=== PATIENT | female | born 1960 | race African-American/Black ===

== ENCOUNTER 2017-03-25 00:26 | Inpatient (IN) | payer OTHER, MEDICARE ==
[2017-03-25] VITALS (16 sets, daily range): BP systolic 126–156; BP diastolic 71–100; PULSE 69–101; RESP 18–22; TEMP 97.5–98.7; O2SAT 97–100
[~2017-03-25] VITALS: Ht 162.6 cm; Wt 110.3 kg
[~2017-03-25 00:26] MED LIST: AMLO5TAB2 PO; CLON0.3T PO; CYCL10TA PO; HYDR-3799 PO; LEVO-86 PO; LEVO137T2 PO; LOSA100T PO; METO50TA PO; NORT75CA PO; POTA-163 PO; TOPA50TA7 PO
[2017-03-25] MEDS ORDERED: ONDANSETRON HCL 4 MG/2 ML VIAL IV PUSH PRN (01:00)
[2017-03-25] MEDS ORDERED: ACETAMINOPHEN 500 MG CPLT PO PRN (01:00)
[2017-03-25] MEDS ORDERED: MORPHINE SULFATE 4 MG/ML INJ IV ONE (04:00)
[2017-03-25] MEDS ORDERED: MORPHINE SULFATE 2 MG/ML INJ IV ONE (05:00)
--- NOTE | 2017-03-25 10:31 | HHI.HP ---
HPI Primary Care Physician Non-Staff Chief Complaint Chest pain History of Present Illness This is a 56-year-old female history of hypertension that presents to ED and [facility] and subsequently transferred to the chest pain center to further evaluate chest discomfort. She states she has had 4 days of constant chest discomfort. Describes it as sharp. Worsened with certain movements. Denies associated shortness of breath, nausea, or diaphoresis. Found last night that the discomfort was radiating down the left arm. Denies history of CAD. States she's had chemical stress test in the past most recently being about a year and a half ago at [facility] and that was okay. She also has double to nonproductive cough for last 2 days which also seems to worsen the discomfort that she has had constantly for 4 days. Review of Systems General: Patient denies fevers, chills recent, and recent travel HEENT: Patient denies headache, sore throat, difficulty swallowing. Cardiovascular: Has the chest discomfort as mentioned above. Denies sensation of heart beating rapidly or irregularly. No syncope. Denies diaphoresis. Respiratory: Denies shortness of breath or inspirational chest discomfort. Denies coughing wheezing or hemoptysis. GI: Patient denies nausea, vomiting, diarrhea, abdominal pain, bloody stools. Musculoskeletal: Patient denies joint pain or edema. Denies calf pain or edema. Neurovascular: Patient denies numbness, tingling, weakness in extremities. Denies headache. Endocrine: Denies polyuria and polydipsia. Hematologic: Denies easy bruising. Skin: Denies rash or itching. Past Family Social History Allergies: Coded Allergies: metronidazole (Verified Allergy, Severe, 03/24/17) TONGUE SWELLING penicillin G (Verified Allergy, Severe, 03/24/17) RASH sulfamethoxazole (Verified Allergy, Severe, 03/24/17) HIVES trimethoprim (Verified Allergy, Severe, 03/24/17) HIVES Past Medical History Hypertension hypothyroidism history of temporal arteritis. Denies hyperlipidemia and diabetes. Denies known CAD. Past Surgical History Cholecystectomy, hysterectomy, and thyroidectomy. Reported Medications Reported Meds & Active Scripts Active Reported Flexeril (Cyclobenzaprine HCl) 10 Mg Tab 10 Mg PO TID Potassium Chloride ER (Potassium Chloride) 20 Meq Tab 20 Meq PO BID Synthroid (Levothyroxine Sodium) 137 Mcg Tab 137 Mcg PO DAILY Nortriptyline (Nortriptyline HCl) 75 Mg Cap 75 Mg PO HS Topamax (Topiramate) 50 Mg Tab 50 Mg PO BID Clonidine (Clonidine HCl) 0.3 Mg Tab 0.3 Mg PO TID Hydralazine HCl 25 Mg Tablet 100 Mg PO TID Amlodipine (Amlodipine Besylate) 5 Mg Tab 5 Mg PO BID Metoprolol Tartrate 50 Mg Tab 50 Mg PO TID Losartan (Losartan Potassium) 100 Mg Tab 100 Mg PO DAILY Active Ordered Medications Current Medications Medications (Trade) Dose Ordered Sig/Lorraine Route Start Time Stop Time Status Last Admin (Tylenol) 500 mg Q4H PRN PO 03/25/17 01:00 03/25/17 01:24 (Zofran Inj) 4 mg Q6H PRN IV PUSH 03/25/17 01:00 03/25/17 01:24 (Flexeril) 10 mg TID PO 03/25/17 13:00 UNV (Apresoline) 100 mg TID PO 03/25/17 13:00 UNV (Cozaar) 100 mg DAILY PO 03/25/17 09:45 UNV (Pamelor) 75 mg HS PO 03/25/17 21:00 UNV (KCl) 20 meq BID PO 03/25/17 09:45 UNV Non-Formulary Medication 137 mcg DAILY PO 03/25/17 09:45 UNV (Norvasc) 5 mg BID PO 03/25/17 10:15 UNV (Catapres) 0.3 mg TID PO 03/25/17 13:00 UNV (Lopressor) 50 mg TID PO 03/25/17 13:00 UNV (Decadron Inj) 8 mg NOW ONCE IV PUSH 03/25/17 10:15 03/25/17 10:16 UNV Family History Multiple family members with CAD. Social History Lifetime nonsmoker. Denies alcohol or illicit drugs. Physical Exam Vital Signs Vital Signs Date Time Temp Pulse Resp B/P (MAP) Pulse Ox O2 Delivery O2 Flow Rate FiO2 03/25/17 08:56 98.1 81 18 135/86 (102) 100 03/25/17 04:24 98.7 72 18 129/71 (90) 100 03/25/17 03:20 94 03/25/17 03:13 78 03/25/17 01:11 98.4 76 18 140/76 (97) 99 Physical Exam GENERAL: This is a well-nourished, well-developed patient, in no apparent distress. Patient speaks in clear complete sentences. Patient is pleasant. HEENT: Head is atraumatic and normocephalic. Neck is supple without lymphadenopathy and trachea is midline. No JVD or carotid bruits. CARDIOVASCULAR: Regular rate and rhythm without murmurs, gallops, or rubs. RESPIRATORY: Clear to auscultation. Breath sounds equal bilaterally. No wheezes , rales, or rhonchi. Chest wall is very tender on left side. Also tenderness on palpating left back. No use of accessory muscles. GASTROINTESTINAL: Abdomen is nontender, nondistended. Abdomen soft. No obvious pulsatile mass or bruit. No CVA tenderness. Strong femoral pulses bilaterally. Normal bowel sounds in all quadrants. MUSCULOSKELETAL: There is tenderness on palpating left thoracolumbar region. No spinous process point tenderness. Patient is moving upper and lower extremities freely. No calf tenderness or edema, no Homans sign. Strong pulses in upper and lower extremities. NEUROLOGICAL: Patient is alert and oriented. Cranial nerves 2-12 are grossly intact. No focal deficits and speech is clear. SKIN: No rash and turgor is normal. Imaging Chest x-ray reveals nothing acute. CTA read by radiologist as no PE. Course EKGs are sinus rhythm with inferior anterior ST changes are nonspecific. Caprini VTE Risk Assessment Caprini VTE Risk Assessment: No/Low Risk (score <= 1) Caprini Risk Assessment Model Point Value = 1 Point Value = 2 Point Value = 3 Point Value = 5 Age 41-60 Minor surgery BMI > 25 kg/m2 Swollen legs Varicose veins or History of unexplained or recurrent spontaneous Oral contraceptives or hormone replacement Sepsis (< 1 month) Serious lung disease, including pneumonia (< 1 month) Abnormal pulmonary function Acute myocardial infarction Congestive heart failure (< 1 month) History of inflammatory bowel disease Medical patient at bed rest Age 61-74 Arthroscopic surgery Major open surgery (> 45 min) Laparoscopic surgery (> 45 min) Malignancy Confined to bed (> 72 hours) Immobilizing plaster cast Central venous access Age >= 75 History of VTE Family history of VTE Factor V Leiden Prothrombin [id number] Lupus anticoagulant Anticardiolipin antibodies Elevated serum homocysteine Heparin-induced thrombocytopenia Other congenital or acquired thrombophilia Stroke (< 1 month) Elective arthroplasty Hip, pelvis, or leg fracture Acute spinal cord injury (< 1 month) Prophylaxis Regimen Total Risk Factor Score Risk Level Prophylaxis Regimen 0-1 Low Early ambulation 2 Moderate Order ONE of the following: *Sequential Compression Device (SCD) *Heparin 5000 units SQ BID 3-4 Higher Order ONE of the following medications: *Heparin 5000 units SQ TID *Enoxaparin/Lovenox 40 mg SQ daily (WT < 150 kg, CrCl > 30 mL/min) *Enoxaparin/Lovenox 30 mg SQ daily (WT < 150 kg, CrCl > 10-29 mL/min) *Enoxaparin/Lovenox 30 mg SQ BID (WT < 150 kg, CrCl > 30 mL/min) AND/OR *Sequential Compression Device (SCD) 5 or more Highest Order ONE of the following medications: *Heparin 5000 units SQ TID (Preferred with Epidurals) *Enoxaparin/Lovenox 40 mg SQ daily (WT < 150 kg, CrCl > 30 mL/min) *Enoxaparin/Lovenox 30 mg SQ daily (WT < 150 kg, CrCl > 10-29 mL/min) *Enoxaparin/Lovenox 30 mg SQ BID (WT < 150 kg, CrCl > 30 mL/min) AND *Sequential Compression Device (SCD) Assessment and Plan Assessment and Plan * Atypical chest pain: Patient had serial cardiac enzymes and EKGs for ruling out purposes. Her discomfort appears to be musculoskeletal in nature. She was seen by Dr. Bradley of cardiology and the chest pain center. We will give her Decadron IV 1 and Medrol Dosepak. She will have a Lexiscan in the discharge of her stress test was nonischemic with instructions to follow-up with PCP. Return to ED for interval issues. * Hypertension: Resume medications. * Hypothyroidism: Continue current medication. Patient is stable this time. She is agreeable to this plan. Delon Borges Mar 25, 2017 10:31
[2017-03-25] MEDS: LEVOTHYROXINE SODIUM 112 MCG TAB PO SCH (10:52)
[2017-03-25] MEDS: LEVOTHYROXINE SODIUM 25 MCG TAB PO SCH (10:52)
[2017-03-25] MEDS: POTASSIUM CHLORIDE 20 MEQ CONTROLLED RELEASE TAB PO SCH ×2 (10:53→21:30)
[2017-03-25] MEDS: amLODIPine BESYLATE 5 MG TAB PO SCH ×2 (10:53→21:30)
[2017-03-25] MEDS: LOSARTAN 50 MG TAB PO SCH (10:53)
[2017-03-25] MEDS ORDERED: DEXAMETHASONE SOD PHOS 4 MG/ML VIAL IV PUSH ONE (11:00)
[2017-03-25] MEDS ORDERED: REGADENOSON INJ 0.4 MG/5 ML SYR ONE (12:22)
--- NOTE | 2017-03-25 13:18 | TR ---
Date Performed: 03/25/2017 Time Performed: 12:41:57 DOCTOR: Trey Bradley DRUG LIST: CLINICAL HISTORY: ANGINA REASON FOR TEST: REASON FOR ENDING: OBSERVATION: CONCLUSION: Lexiscan stress test was performed under standard four minute protocol. Radionuclid e was injected one minute prior to ending the test. No electrocardiographic abormalities were present to suggest ischemia. Nuclear imaging and interpretation are pending. COMMENTS:
[2017-03-25] MEDS: CYCLOBENZAPRINE HCL 10 MG TAB PO SCH ×2 (14:32→17:59)
[2017-03-25] MEDS: METOPROLOL TARTRATE 50 MG TAB PO SCH ×2 (14:32→17:59)
[2017-03-25] MEDS: hydrALAZINE HCL 25 MG TAB PO SCH ×2 (14:33→17:59)
[2017-03-25] MEDS: cloNIDine HCL 0.3 MG TAB PO SCH ×2 (14:33→17:59)
--- NOTE | 2017-03-25 14:46 | RADRPT ---
EXAM DATE/TIME: 03/25/2017 12:17 [facility] COMPARISON: No previous studies available for comparison. INDICATIONS : Chest pain and dyspnea. Angina. DOSE: 35 mCi Tc99m Myoview at stress. 11 mCi Tc99m Myoview at rest. 0.4 mg Lexiscan STRESS SYMPTOMS: Shortness of breath, chest pressure. EJECTION FRACTION: 52% MEDICAL HISTORY : Hypertension. Hypothyroidism. SURGICAL HISTORY : Thyroidectomy. Hysterectomy. Cholecystectomy. ENCOUNTER: Initial ACUITY: 1 day PAIN SCALE: 0/10 LOCATION: Left chest TECHNIQUE: The patient underwent pharmacologic stress with infusion of prescribed dose. Continuous ECG tracing was monitored during stress. Gated SPECT imaging was performed after stress and conventional SPECT i maging was performed at rest. The examination was performed on a SPECT/CT scanner, both attenuation and non-corrected datasets were reviewed. FINDINGS: The study is abnormal. Perfusion is better at rest than stress in all projections. There is signifi cant redistribution the anteroseptal wall and inferior wall. Ejection fraction 52% with inferior wall hypokinesis. CONCLUSION: Marked stress-induced ischemia anterior septum and inferior wall. RISK CATEGORY: Intermediate (1-3% Annual Mortality Rate) Faisal Moser MD FACR on March 25, 2017 at 14:43 Board Certified Radiologist. This report was verified electronically.
[2017-03-25] MEDS ORDERED: ACETAMINOPHEN/HYDROcodone 325 MG/5 MG TAB PO PRN (15:00)
[2017-03-25] MEDS: MORPHINE SULFATE 2 MG/ML INJ IV PUSH PRN (15:40)
[2017-03-25] MEDS ORDERED: cloNIDine HCL 0.1 MG TAB PO PRN (15:45)
[2017-03-25] MEDS ORDERED: DIAZEPAM 5 MG TAB PO STA (15:59)
[2017-03-25] MEDS ORDERED: diphenhydrAMINE HCL 25 MG CAP PO STA (16:09)
[2017-03-25] MEDS ORDERED: IOHEXOL 350 MG/ML 50 ML BTL (for Cath Lab) OTHER ONE (16:13)
[2017-03-25] MEDS ORDERED: IOHEXOL 350 MG/ML 100 ML BTL (for Cath Lab) OTHER ONE (16:13)
[2017-03-25] MEDS: SODIUM CHLOR 0.9% 1000 ML INJ 1,000 ML IV SCH ×2 (16:27→22:30)
--- NOTE | 2017-03-25 16:44 | MB ---
cc: GARRICK CISNEROS M.D. DATE OF CONSULTATION: 03/25/2017. REASON FOR CONSULTATION: Evaluation of chest pain and abnormal stress test. HISTORY OF PRESENT ILLNESS: Fara Rondon is a 56-year-old woman with multiple risk factors for coronary artery disease. She has hypertension. She has had this sixteen years. She has never smoked. She is not diabetic. She has a family history in that her mother had several heart attacks and her father of congestive heart failure. She describes chest pain going on for the past four days that is a sharp pain in the left side of her chest going over to the side. She has had some intermittent numbness in her left arm. She has had severe dyspnea on exertion and has been extremely tired. She underwent a nuclear stress test which was markedly abnormal and she is now referred to me for further evaluation. PAST MEDICAL HISTORY: Her past medical history includes: 1. Hypertension. 2. Hypothyroidism secondary to thyroidectomy. 3. Temporal arteritis in 2013. PAST SURGICAL HISTORY: Her past surgical history includes: 1. Two bowel operations for small bowel obstruction. 2. Cholecystectomy. 3. Hysterectomy. 4. Thyroidectomy. 5. Knee replacement. SOCIAL HISTORY: She is from [place], [place]. Nonsmoker and non-drinker. REVIEW OF SYSTEMS: She denies any gastrointestinal problems. Denies any bleeding. Denies any kidney problems. The remaining review of systems also discussed and negative. ALLERGIES: 1. NOT ALLERGIC TO X-RAY DYE OR ASPIRIN. 2. SHE IS ALLERGIC TO METRONIDAZOLE, PENICILLIN, SULFAMETHOXAZOLE AND TRIMETHOPRIM. MEDICATIONS PRIOR TO ADMISSION: 1. Flexeril. 2. Potassium. 3. Synthroid. 4. Nortriptyline. 5. Topamax. 6. Clonidine 0.3 three times a day. 7. Hydralazine 100 three times a day. 8. Amlodipine 5 twice a day. 9. Metoprolol 50 three times a day. 10. Losartan 100 daily. PHYSICAL EXAMINATION: GENERAL: The physical exam reveals an obese pleasant -Stateless female in no acute distress. VITAL SIGNS: Charted. HEAD, EYES, EARS, NOSE, THROAT: Unremarkable. NECK: No jugular venous distention. No bruits. CHEST: Clear to auscultation. CARDIAC: S1-S2 are somewhat distant. Regular rate and rhythm. No murmurs or gallops appreciated. ABDOMEN: Abdomen soft and nontender. No masses or organomegaly. EXTREMITIES: No cyanosis, clubbing or edema. Pulses are intact. EKGS: EKG demonstrates normal sinus rhythm, left ventricular hypertrophy by voltage in lead aVL, anterior S-T-T wave changes which could be from hypertrophy or could be from ischemia. Her nuclear stress test shows marked stress-induced ischemia on the anterior septum and inferior wall. LABORATORY STUDIES: BUN is 23, creatinine 1.20, potassium was 3.1 but she has received potassium replacement. Troponin has been negative. IMPRESSION: Suspected unstable angina and markedly abnormal stress test with significant cardiac risk factors. PLAN: I obtained informed consent for cardiac catheterization and will try to do this radially to reduce the bleeding risk because of her size. Informed consents have been obtained. I explained that she may require stenting for possible bypass versus medication therapy. Informed consent has been obtained and we are planning to proceed later today. Tomorrow is [place] so will try to get her done today before the holiday. MD OMAR Velazquez/SATHYA /3:51 PM /4:20 PM
[2017-03-25] MEDS ORDERED: HEPARIN-NS/PF INJ 1,000 ML ONE (18:23)
[2017-03-25] MEDS ORDERED: NITROGLYCERIN INJ 5 ML ONE (18:29)
[2017-03-25] MEDS ORDERED: HEPARIN SODIUM - IV 10,000 UNITS/10 ML VIAL ONE (18:29)
[2017-03-25] MEDS ORDERED: MIDAZOLAM HCL 2 MG/2 ML VIAL ONE ×3 (18:29→19:12)
[2017-03-25] MEDS ORDERED: VERAPAMIL HCL 5 MG/2 ML VIAL ONE (18:29)
[2017-03-25] MEDS ORDERED: ASPIRIN 81 MG CHEW TAB ONE (20:03)
[2017-03-25] MEDS ORDERED: TICAGRELOR 90 MG TAB PO ONE (20:03)
--- NOTE | 2017-03-25 20:21 | CATHPROC ---
[facility] HIS Report Study Information Study Number Admission Scheduled Start Study Start [id number] Mar 25 2017 12:29AM 03/25/2017 Mar 25 2017 6:01PM [place] [facility] Cardiac Catheterization Admit Source Facility Department Emergency department [facility] - Court Officer Physician and Clinical Staff Initial Jasper Cooley Grain MixerMila Zhou,RN Grain MixerOfelia Lozoya,CORIE Recorder Rema Ortiz,RT(R) Scrub Mila Alcantara,RT(R) Procedures Performed Procedure Location (Site) Vessel Name Coronary Angiograms LCA Left Coronary Coronary Angiograms RCA Right Coronary Drug Eluting Inflatio LAD Mid Left Coronary IVUS LAD Mid Left Coronary L Heart Cath PTCA LAD Mid Left Coronary Wire insertion Radial (right) Radial Art. Equipment Time Auto Camp Attendant Description Size Mfg Part Number Used/Scraped TRANSDUCER, TRUWAVE [id number] 18:02 SOTELO CORRAL * Used W/STOCKCOCK *[id number] *[id number] *[id number] 18:02 MALLINCKRODT SYRINGE, ANGIOMAT 150ML 150ML *[id number] Used 2SUB [id number] 18:02 [employer] PACK, CCL CUSTOM * Used *[id number] 18:02 [employer] SUPPORT, ARTERIAL ADULT 94834 *[id number] Used [id number] 18:02 [employer] PACER PEN, SKIN DUAL W/ RULER * Used *[id number] BALLOON, 3.5 X 15MM NC [id number] 19:57 MEDTRONIC 15MM Used EUPHORA *[id number] 19:50 [employer] STENT, 3.0 22MM ANDRIY 3.0 22MM Used *[id number] 19:21 [employer]/AVE EBU 3.5 Z2 GUIDE CATHETER FR 6 Used *[id number] 19:54 [employer] MEDICAL 30 YULI INDEFLATOR Used *[id number] BAND, RADIAL COMPRESSION TR [id number] 20:08 [employer] MEDICAL 24CM Used SHORT 24 *[id number] 20:19 [employer] PACK, ANGIOPLASTY * [id number] Used [id number] 18:02 [employer] WIRE, EXCHANGE 260CM 3MMJ 260CM Used *[id number] PROBE COVER, STERILE [id number] 18:46 [employer] MEDICAL * Used ULTRASOUND W/ GEL *[id number] 18:02 NAMIC MANIFOLD, 4 PORT * Used *[id number] 18:02 NYCOMED OMNIPAQUE, 350 MG, 100ML 100ML [id number] Used [id number] 18:02 [employer] MEDICAL BLANKET,WARM AIR CCL * Used *[id number] 18:02 IGLESIAS [employer] JELCO NEEDLE 4056 *[id number] Used 20:18 [employer] JELCO NEEDLE 4056 *[id number] Used CATHETER, FR5 OPTITORQUE [id number] 18:44 TERUMO MEDICAL FR 5 Used RADIAL TIG 4.0 *[id number] SHEATH, FR6 TRANSRADIAL [id number] 18:02 [employer] MEDICAL FR 6 Used SLENDER 10CM *[id number] CATHETER, [place] [place] [id number] 19:43 [employer] Used IMAGING *[id number] 19:23 [employer]OL[employer] PRIME WIRE, VERRATA 185CM 185CM 36744 *[id number] Used Equipment Model, Serial, Lot Number and Expiration Data Description Model Number Serial Number Lot Number Expiration Date PRIME WIRE, VERRATA 185CM [id number] 02-01-2020 STENT, 3.0 22MM ANDRIY [id number] 08-27-2018 History: Current Medications Medication Dosage/Unit Route Frequency Last Date/Time Taken LOPRESSOR COZAAR HYDRALAZINE NORVASC ASA History: Allergies Allergy Reaction sulfamethoxazole trimethoprim metronidazole penicillin G History: Risk Factors Family History of Hypertension Dyslipidemia Previous OR Previous Heart Failure Premature CAD Yes No Yes No No Prior Valve Prior PCI Prior CABG Surgery No No No Cerebrovascular Peripheral Artery Chronic Lung On Dialysis Diabetes Disease Disease Disease No No No No No History: Symptoms/Diagnosis Selection Items Chest pain History: Stress Tests Stress or Imaging Studies Performed Yes Standard Exercise Stress Test No Stress Echo No Stress Test SPECT Stress Test SPECT Result Stress Test SPECT Ischemia Risk/Extent Yes Positive High Stress Test CMR No Cardiac CTA Coronary Calcium Score No No History: Other Current Smoker No Labs Hgb (g/dl) Hct (%) WBC (l/cumm) Platelets (thousands) 11.60-17.00 35.00-51.00 4.00-11.00 150.00-450.00 11.8 35.6 10.2 348 Glucose (mg/dl) BUN (mg/dl) Creatinine (mg/dl) BUN:Creatinine (1:x) 74.00-106.00 7.00-18.00 0.50-1.30 10.00-20.00 95 23 1.2 19.2 Na (meq/l) K (meq/l) 136.00-145.00 3.50-5.10 141 31 INR (PTT:PT) 0.90-1.10 1.2 CPK-MB (ng/ML) 0.50-3.60 Not Drawn Medication Medication Total Dose (Bolus/Oral) Medication Total Dosage/Unit 1% XYLOCAINE 20 mL ASPIRIN 324 mg BRILINTA 180 mg FENTANYL 100 mcg HEPARIN 5500 units NTG (IC) 400 mcg RADIAL COCKTAIL 7.5 mL (Bolus) VERSED 5 mg Medications (Bolus/Oral) Medication Time Given Dosage/Unit Administered By Reason VERSED 03/25/2017 6:44:01 PM 2 mg Hesher, Mila 2 mg VERSED given in lab by Mila Snow RN in Left Arm via Peripheral IV. Ordered by Gertrude Dixon VERSED 03/25/2017 6:46:20 PM 1 mg Hesher, Mila 1 mg VERSED given in lab by Mila Snow RN in Left Arm via Peripheral IV. Ordered by Gertrude Dixon VERSED 03/25/2017 6:47:20 PM 1 mg Ofelia Doan 1 mg VERSED given in lab by Ofelia oDan RN in Left Arm via Peripheral IV. Ordered by Jasper Dixon. FENTANYL 03/25/2017 6:48:02 PM 50 mcg Hes, Mila 50 mcg FENTANYL given in lab by Mila Snow RN in Left Arm via Peripheral IV. Ordered by Jasper Dixon. 1% XYLOCAINE 03/25/2017 6:50:33 PM 20 mL Jasper Dixon 20 mL 1% XYLOCAINE given in lab by Jasper Dixon in Right Radial via Subcutaneous. Ntg 200mcg Verapamil 2.5mg Heparin RADIAL COCKTAIL 03/25/2017 7:00:00 PM 5 mL (Bolus) Jasper Dixon 2500U 5 mL (Bolus) RADIAL COCKTAIL given in lab by Jasper Dixon in Right Radial via Radial. Using [Solutio n Name]. Reason: Ntg 200mcg Verapamil 2.5mg Heparin 2500U. VERSED 03/25/2017 7:13:06 PM 1 mg Ofelia Doan 1 mg VERSED given in lab by Ofelia Doan RN in Left Arm via Peripheral IV. Ordered by Jasper Dixon. FENTANYL 03/25/2017 7:27:20 PM 50 mcg Ofelia Doan 50 mcg FENTANYL given in lab by Ofelia Doan RN in Left Arm via Peripheral IV. Ordered by Jasper Galindo. RADIAL COCKTAIL 03/25/2017 7:30:00 PM 2.5 mL (Bolus) Jasper Dixon 2.5 mL (Bolus) RADIAL COCKTAIL given in lab by Jasper Dixon in Right Radial via Radial. Using [Solut ion Name]. Reason: Ntg 200mcg Verapamil 2.5mg HEPARIN 03/25/2017 7:33:04 PM 4000 units Ofelia Doan 4000 units HEPARIN given in lab by Ofelia Doan RN in Left Arm via Peripheral IV. Ordered by Jasper Egan. NTG (IC) 03/25/2017 7:37:35 PM 200 mcg Jasper Dixon 200 mcg NTG (IC) given in lab by Jasper Dixon in Right Radial via Intra-coronary. HEPARIN 03/25/2017 7:52:35 PM 1500 units Ofelia Doan 1500 units HEPARIN given in lab by Ofelia Doan RN in Left Arm via Peripheral IV. Ordered by Jasper Egan. NTG (IC) 03/25/2017 7:55:28 PM 200 mcg Jasper Dixon 200 mcg NTG (IC) given in lab by Jasper Dixon in Right Radial via Intra-coronary. ASPIRIN 03/25/2017 8:10:34 PM 324 mg Mila Snow 324 mg ASPIRIN given in lab by Mila Snow, CORIE via Oral. Ordered by Jasper Dixon. BRILINTA 03/25/2017 8:10:47 PM 180 mg Mila Snow 180 mg BRILINTA given in lab by Mila Snow, CORIE via Oral. Ordered by Jasper Dixon. Medication (Drip) Medication Time Given Dosage/Unit Concentration/Unit Diluent (ml) Solution IV Solutions 03/25/2017 6:21:49 PM 50 mL (IV) NaCl .9 IV Solutions given in lab by Mila Snow RN in Left Arm via Peripheral IV. Pump/Drip Flow using N aCl .9. Initial Case Assessment Cardiovascular HR Rhythm NIBP Chest Pain 88 SR 145/98 7 Edema Present Skin color Skin None Normal Warm Dry Circulatory - Right Pulses Dorsalis Pedis Femoral Radial 2 2 2 Scale (0,1,2,3,4,d) Circulatory - Left Pulses Dorsalis Pedis Femoral Radial 2 2 Scale (0,1,2,3,4,d) Neurological State Oriented to time-place- Alert Moves all extremities person Respiration - General Respiration Rate SpO2 (%) (B/min) 17 97 Final Case Assessment Cardiovascular HR Rhythm NIBP Chest Pain 68 SR 129/91 6 Edema Present Skin color Skin None Normal Warm Dry Circulatory - Right Pulses Dorsalis Pedis Femoral Radial 2 2 2 Scale (0,1,2,3,4,d) Circulatory - Left Pulses Dorsalis Pedis Femoral Radial 2 2 Scale (0,1,2,3,4,d) Neurological State Oriented to time-place- Alert Moves all extremities person Respiration - General Respiration Rate SpO2 (%) (B/min) 20 94 Chronological Log Time Study Chronological Log 18:21:32 Patient arrived via Bed. 18:21:33 Patient Name, D.O.B, / Armband Verified By R.N. 18:21:34 Consent signed by the physician and the patient and verified by the Court Officer staff. 18:21:34 Pre-op and post- op instructions given; patient acknowledges understanding of instructions. 18:21:35 Verbal Stimulation=2 Physical Stimulation=2 Airway=2 Respiration=2 TOTAL=8. (0=absent, 1=li mited, 2=present) 18:21:38 Allens test performed on the right radial and ulnar artery. 18:21:39 Patient has been NPO for More than 6Hrs. 18:21:41 Skin Breakdown- none per pt 18:21:44 Patient Warmer Placed on the Table. 18:21:45 Luciano Prominences Protected 18:21:47 A # 18 IV was noted in the Wrist (right). Grade = 0 18:21:48 A # 20 IV was noted in the Upper Arm (left). Grade = 0 18:21:49 IV Solutions given in lab by Mila Snow RN in Left Arm via Peripheral IV. Pump/Drip Fl ow using NaCl .9. 18:21:50 History and physical on the chart or being dictated. Assessment: Initial Case, HR=88 BPM, Rhythm=SR, MHII=961/98 mmhg, Chest Pain=7, Edema=None, Col or=Normal, Skin = Warm, Dry Right Pulses: Raymond Ped=2, Femoral=2, Radial=2 18:21:52 Left Pulses: Raymond Ped=2, Femoral=2 Neurological: State=Alert, Ox3, GUTIERREZ Respiration: Resp=17 B/min, SpO2=97 % 18:30:51 MD arrived. Vitals capture started with the following parameters, Patient=Adult, Interval=5 min, Initial Pr gnpjlx=506 mmHg, 18:30:55 Deflation Rate=5 mmHg, Cuff placed on Left Arm 18:31:54 HR=88 bpm, SNFQ=953/98 mmhg, SpO2=97 %, Resp=17 B/min 18:34:35 Reference ECG taken 18:35:38 Right Radial and groin(s) prepped with 2% chlorhexidine, and draped after a 3 min. waiting time. 18:36:29 HR=84 bpm, RBHK=776/97 mmhg, SpO2=97.0 %, Resp=19 B/min 18:41:28 HR=82 bpm, SBHV=896/106 mmhg, SpO2=99.0 %, Resp=20 B/min 18:43:15 Pressure channel 1 zeroed. Time Out. Correct patient, correct procedure, correct physician, power injector loaded, or not loaded with contrast with 18:43:19 surgical team present. Time Out Concurred by MD and individual staff in procedure. 18:44:01 2 mg VERSED given in lab by Mila Snow, CORIE in Left Arm via Peripheral IV. Ordered by Jasper Cardona. 18:46:20 1 mg VERSED given in lab by Mila Snow, CORIE in Left Arm via Peripheral IV. Ordered by Jasper Cardona. 18:46:31 HR=88 bpm, RNAH=759/100 mmhg, SpO2=98.0 %, Resp=23 B/min 18:47:20 1 mg VERSED given in lab by Ofelia Doan, CORIE in Left Arm via Peripheral IV. Ordered Jasper Nieves. 18:48:02 50 mcg FENTANYL given in lab by Mila Snow, CORIE in Left Arm via Peripheral IV. Ordered Jasper Nieves. 18:50:10 Case Start 18:50:33 20 mL 1% XYLOCAINE given in lab by Jasper Dixon in Right Radial via Subcutaneous. 18:51:32 HR=84 bpm, PNTM=114/92 mmhg, SpO2=95.0 %, Resp=10 B/min 18:56:27 HR=83 bpm, XAAJ=027/100 mmhg, SpO2=95.0 %, Resp=19 B/min 18:58:57 Access site was right Radial Artery via ultrasound. A SHEATH, FR6 TRANSRADIAL SLENDER 10CM FR 6 was advanced into the Radial (right) using the Perc utaneous 18:59:48 technique. 5 mL (Bolus) RADIAL COCKTAIL given in lab by Jasper Dixon in Right Radial via Radial. Using [S olution Name]. 19:00:00 Reason: Ntg 200mcg Verapamil 2.5mg Heparin 2500U. A CATHETER, FR5 OPTITORQUE RADIAL TIG 4.0 FR 5 was advanced over a wire. OMNIPAQUE, 350 MG, 100 ML 100ML 19:00:46 was used for injections. 19:01:32 HR=85 bpm, FXKJ=721/87 mmhg, SpO2=95 %, Resp=22 B/min 19:02:42 The LCA was injected and visualized at various angles. OMNIPAQUE, 350 MG, 100ML 100ML used . Recorded Pressure: Ao, HR=86, Condition=Condition 1 19:02:49 (Aorta) Ao 115/86/99 19:06:31 HR=82 bpm, KGSW=437/80 mmhg, SpO2=93 %, Resp=19 B/min 19:09:14 The RCA was injected and visualized at various angles. OMNIPAQUE, 350 MG, 100ML 100ML used . After removing the current catheter a JL 3.5 INFINITI CATHETER FR 6 was advanced over a WIRE, E XCHANGE 260CM 19:10:47 3MMJ 260CM. 19:11:28 HR=80 bpm, SILR=005/93 mmhg, SpO2=93 %, Resp=19 B/min 19:13:06 1 mg VERSED given in lab by Ofelia Doan, RN in Left Arm via Peripheral IV. Ordered Jasper Nieves. 19:16:29 HR=77 bpm, TMCX=131/90 mmhg, SpO2=95 %, Resp=19 B/min 19:21:30 HR=76 bpm, AJTF=226/90 mmhg, SpO2=96.0 %, Resp=18 B/min After removing the current catheter a EBU 3.5 Z2 GUIDE CATHETER FR 6 was advanced over a WIRE, EXCHANGE 19:22:08 260CM 3MMJ 260CM. 19:27:04 HR=72 bpm, MJST=704/83 mmhg, SpO2=96.0 %, Resp=19 B/min 19:27:20 50 mcg FENTANYL given in lab by Ofelia Doan, RN in Left Arm via Peripheral IV. Order ed by Jasper Dixon. 19:27:39 Catheter was removed 2.5 mL (Bolus) RADIAL COCKTAIL given in lab by Jasper Dixon in Right Radial via Radial. Using [Solution Name]. 19:30:00 Reason: Ntg 200mcg Verapamil 2.5mg A XB 3.5 GUIDE CATHETER FR 6 was advanced over a wire. OMNIPAQUE, 350 MG, 100ML 100ML was used for 19:30:18 injections. 19:31:31 ACT (Normal Range 90-180) = 268 19:31:32 HR=76 bpm, YWVY=707/80 mmhg, SpO2=93 %, Resp=14 B/min 19:33:04 4000 units HEPARIN given in lab by Ofelia Doan, RN in Left Arm via Peripheral IV. Or dered by Jasper Dixon. 19:33:37 A PRIME WIRE, VERRATA 185CM 185CM was inserted via Radial (right). 19:35:48 Flow Wire was was placed in the LAD Dist. The IFR measures 0.86 19:36:29 HR=76 bpm, TSAS=730/83 mmhg, SpO2=92.0 %, Resp=17 B/min 19:37:35 200 mcg NTG (IC) given in lab by Jasper Dixon in Right Radial via Intra-coronary. 19:41:32 HR=76 bpm, WJKW=403/83 mmhg, SpO2=91.0 %, Resp=19 B/min 19:43:31 Activated Clotting Time Drawn 19:45:10 An CATHETER, [employer]AG[employer] was advanced through the lesion. Images saved onto IVUS hard drive 19:46:33 HR=74 bpm, CJNG=620/77 mmhg, SpO2=90.0 %, Resp=20 B/min 19:47:35 IVUS in progress using CATHETER, [employer] IMAGING 19:49:20 IVUS catheter removed 19:51:33 HR=72 bpm, THNN=857/89 mmhg, SpO2=95 %, Resp=20 B/min A STENT, 3.0 22MM ANDRIY 3.0 22MM was advanced through a XB 3.5 GUIDE CATHETER FR 6 over a PRIME WIRE, 19:52:05 VERRATA 185CM 185CM. 19:52:35 1500 units HEPARIN given in lab by Ofelia Doan RN in Left Arm via Peripheral IV. Or dered by Jasper Dixon. A STENT, 3.0 22MM ANDRIY 3.0 22MM was deployed using a 30 YULI INDEFLATOR at 18 atmospheres for 30 seconds in 19:53:26 the LAD Mid. 19:55:28 200 mcg NTG (IC) given in lab by Jasper Dixon in Right Radial via Intra-coronary. 19:55:32 Delivery device removed 19:56:36 HR=75 bpm, PEKC=280/79 mmhg, SpO2=94.0 %, Resp=15 B/min A BALLOON, 3.5 X 15MM NC EUPHORA 15MM was inserted over PRIME WIRE, VERRATA 185CM 185CM via the Radial 19:57:25 (right). A BALLOON, 3.5 X 15MM NC EUPHORA 15MM over a PRIME WIRE, VERRATA 185CM 185CM in the LAD Mid was inflated 19:59:19 using a 30 YULI INDEFLATOR at 16 yuli for 16 sec. A BALLOON, 3.5 X 15MM NC EUPHORA 15MM over a PRIME WIRE, VERRATA 185CM 185CM in the LAD Mid was inflated 19:59:44 using a 30 YULI INDEFLATOR at 20 yuli for 20 sec. 20:01:32 Balloon Removed. 20:01:33 HR=72 bpm, WFMV=764/90 mmhg, SpO2=92.0 %, Resp=18 B/min 20:01:54 The PRIME WIRE, VERRATA 185CM 185CM was removed. 20:03:08 Case End 20:06:34 HR=68 bpm, LJCI=904/91 mmhg, SpO2=93 %, Resp=10 B/min Assessment: Final Case, HR=68 BPM, Rhythm=SR, DNLY=318/91 mmhg, Chest Pain=6, Edema=None, Color =Normal, Skin = Warm, Dry Right Pulses: Raymond Ped=2, Femoral=2, Radial=2 20:07:20 Left Pulses: Raymond Ped=2, Femoral=2 Neurological: State=Alert, Ox3, GUTIERREZ Respiration: Resp=20 B/min, SpO2=94 % Radial Compression Device Used. 13 mLs of air placed in BAND, RADIAL COMPRESSION TR SHORT 24 24 CM. Affected 20:08:03 hand ~O2 SATURATION~ % O2 saturation. 20:08:20 No case complications noted. 20:08:21 Cine recording checked. 20:08:24 Bedside Report will be given. 20:08:25 Implantable Device card placed in patient's chart. 20:08:28 Contrast Scanned 20:08:29 A Left Heart Cath was performed. 20:10:34 324 mg ASPIRIN given in lab by Mila Snow, CORIE via Oral. Ordered by Jasper Dixon. 20:10:47 180 mg BRILINTA given in lab by Mila Snow, CORIE via Oral. Ordered by Jasper Dixon. 20:11:33 HR=69 bpm, KTBP=286/84 mmhg, SpO2=96 %, Resp=9 B/min 20:17:31 Patient moved to [facility] End Study - Contrast Media Used In Study Contrast Total Opened (mL) Total Used (mL) Total Wasted (mL) Omnipaque 230 230 0 End Study - Maximum Contrast Load Max Contrast Load (mL) 458.3 End Study - Radiation Exposure Fluoro Time (minutes) 17.8 End Study - Patient Disposition Complications Transferred To Interventional Outcome No Telemetry Bed successful
[2017-03-25] MEDS ORDERED: TEMAZEPAM 15 MG CAP PO PRN (20:30)
[2017-03-25] MEDS ORDERED: MORPHINE SULFATE 2 MG/ML INJ IV PUSH PRN (20:30)
[2017-03-25] MEDS ORDERED: ONDANSETRON HCL 4 MG/2 ML VIAL IVP PRN (20:30)
[2017-03-25] MEDS ORDERED: ACETAMINOPHEN 325 MG TAB PO PRN (20:30)
[2017-03-25] MEDS ORDERED: oxyCODONE/ACETAMINOPHEN 5 MG/325 MG TAB PO PRN (20:30)
[2017-03-25] MEDS ORDERED: BACITRACIN OINT 0.9 GM PKT TOP ONE (20:30)
--- NOTE | 2017-03-25 20:48 | MA ---
cc: GARRICK CISNEROS M.D. DATE: 03/25/2017. PROCEDURE PERFORMED: Coronary angiography, ISR intravascular ultrasound, balloon stenting and balloon angioplasty of the mid left anterior descending coronary artery. BRIEF HISTORY: Kenyatta Rondon is a 56-year-old woman with multiple risk factors who came in with chest pain. The chest pain was atypical. Troponins were negative but nuclear stress test showed high-risk large area of ischemia. DESCRIPTION OF THE PROCEDURE IN DETAIL: The patient was brought to the cardiac medical laboratory technician in a fasting state. The right wrist was prepped and draped in the sterile fashion. Using ultrasound, the right radial artery was accessed and a Terumo slender sheath was placed. Next I used a tiger catheter to image the left and right coronary arteries. The left coronary artery was large, and despite adequate engagement with the left main, I could not get enough contrast in the left anterior descending to adequately assess it. Angiography of the right coronary artery was diagnostic however and there was nothing significant of the right coronary artery. I then switched to a 6-Irish left 3.5 Henri catheter. Angiography now demonstrated a mid left anterior descending lesion that was ambiguous. It looked to be in the 50% to 70% range. I decided I would need to do IFR. I tried a 6-Irish EBU 3.5 guiding catheter which would not properly engage. I switched to a 6-Irish XB 3.5 guiding catheter, which engaged the left main nicely. Intravenous heparin was given and ACT was checked, and it was 268. An additional 1500 units of heparin was given. I then used a [place] wire to obtain IFR of the mid left anterior descending being sure to give 200 micrograms of intracoronary nitroglycerin before measurement. IFR measurement came back at 0.86. Based on this, I decided to stent. The wire was passed out distally in the inferoapical segment of the left anterior descending. I was not sure of the size so I used intravascular ultrasound. There were two tandem lesions and it looked like a fairly normal segment in-between. ___ demonstrated that the area of severe disease was continuous. It appeared to be close to a 3.0 mm distally and a 3.5 mm proximally. I chose a 3.0 x 22 mm Resolute Marshall stent and positioned this so that it was in both lesions and deployed the stent at 18 atmospheres. Angiography demonstrated that the distal portion of the stent was well-sized and the proximal stent needed to be slightly bigger. I used a 3.5 x 15 mm NC balloon and dilated the central portion of the stent to 16 atmospheres and the proximal portion of the stent at 20 atmospheres. The coronary angiography now demonstrates an excellent result with a slight step on both ends and complete resolution of the stenosis. There is also better filling of the left anterior descending and NAHUN III flow. The patient tolerated the procedure well. She received quite a bit of Versed and fentanyl for sedation. There were no complications. The estimated blood loss was 20 cc. FINDINGS: 1. Hemodynamics: Aortic pressure was 115/86 with a mean of 99. 2. Coronary angiography: The left main coronary artery is extremely large and it bifurcates into the left anterior descending and circumflex vessels. The left anterior descending has 20% proximal and mid irregularity. The left anterior descending artery is tortuous in its midsegment angiographically and has a lesion in the 50-70% severity. There are tandem lesions. The more proximal lesion looked to be more like 50%. Intravascular ultrasound demonstrated continuous lesion and appeared to be close to 80% and the IFR was 0.86. The right coronary artery is dominant and has irregularities only. 3. Results of stenting: Following stenting of the mid-LAD, a 0% residual stenosis was achieved with no evidence of thrombus or dissection and excellent angiographic appearance PLAN: The patient is being treated with aspirin and Brilinta. She remains stable. Hopefully we can get her discharged tomorrow, which is Blanca Eve. MD OMAR Velazquez/SATHYA /8:00 PM /8:09 PM
[2017-03-25] MEDS ORDERED: NORTRIPTYLINE HCL 25 MG CAP PO SCH (21:00)
[2017-03-25] MEDS: oxyCODONE/ACETAMINOPHEN 10 MG/325 MG TAB PO PRN (22:16)
[2017-03-25] MEDS: TOPIRAMATE 25 MG TAB PO SCH (22:28)
[2017-03-26] VITALS (14 sets, daily range): BP systolic 111–159; BP diastolic 60–99; PULSE 62–100; RESP 18; TEMP 97.8–98.4; O2SAT 91–100
[2017-03-26] MEDS: SODIUM CHLOR 0.9% 1000 ML INJ 1,000 ML IV SCH ×2 (01:59→06:16)
[2017-03-26] MEDS: oxyCODONE/ACETAMINOPHEN 10 MG/325 MG TAB PO PRN ×2 (02:06→06:12)
[2017-03-26 05:30] LABS: AUTOMATED NEUTROPHIL # 9.6 TH/MM3 (1.8-7.7); BASOPHIL % 0.1 % (0.0-2.0); EOSINOPHIL % 0.1 % (0.0-4.0); HEMATOCRIT 32.9 % (35.0-46.0); HEMO FLAGS DIFF FINAL; LYMPH % 13.7 % (9.0-44.0); LYMPHOCYTE # 1.6 TH/MM3 (1.0-4.8); MEAN CELL VOLUME 85.5 FL (80.0-100.0); MEAN CORPUSCULAR HEMOGLOBIN 27.9 PG (27.0-34.0); MEAN CORPUSCULAR HGB CONC 32.6 % (32.0-36.0); MONO % 5.6 % (0.0-8.0); NEUT % 80.5 % (16.0-70.0); PLATELET COUNT 313 TH/MM3 (150-450); RED BLOOD COUNT 3.85 MIL/MM3 (4.00-5.30); RED CELL DISTRIBUTION WIDTH 14.9 % (11.6-17.2)
[2017-03-26 05:33] LABS: ANION GAP 9 MEQ/L (5-15); AST (GOT) 11 U/L (15-37); BLOOD UREA NITROGEN 18 MG/DL (7-18); CHLORIDE 108 MEQ/L (98-107); GLOMERULAR FILTRATION RATE 62 ML/MIN (>89); MAGNESIUM 2.1 MG/DL (1.5-2.5); POTASSIUM 3.2 MEQ/L (3.5-5.1); SODIUM (NA) 139 MEQ/L (136-145)
[2017-03-26 05:43] LABS: ALKALINE PHOSPHATASE 89 U/L (45-117); ALT (GPT) 15 U/L (10-53); FREE T4 0.91 NG/DL (0.76-1.46); HDL CHOLESTEROL 54.4 MG/DL (40.0-60.0); LDL CHOLESTEROL 100 MG/DL (0-99); TOTAL BILIRUBIN ADULT 0.2 MG/DL (0.2-1.0)
[2017-03-26 05:44] LABS: CREATINE KINASE 85 U/L (26-192)
[2017-03-26] MEDS: LEVOTHYROXINE SODIUM 112 MCG TAB PO SCH (06:06)
[2017-03-26] MEDS: LEVOTHYROXINE SODIUM 25 MCG TAB PO SCH (06:06)
[2017-03-26] MEDS ORDERED: POTASSIUM CHLORIDE 20 MEQ CONTROLLED RELEASE TAB PO ONE (09:00)
[2017-03-26] MEDS ORDERED: ASPIRIN 81 MG CHEW TAB PO SCH (09:00)
[2017-03-26] MEDS ORDERED: ATORVASTATIN 40 MG TAB PO SCH (09:00)
[2017-03-26] MEDS ORDERED: TICAGRELOR 90 MG TAB PO SCH (09:00)
[2017-03-26] MEDS: TOPIRAMATE 25 MG TAB PO SCH (09:36)
[2017-03-26] MEDS: POTASSIUM CHLORIDE 20 MEQ CONTROLLED RELEASE TAB PO SCH (09:37)
--- NOTE | 2017-03-26 09:37 | HHI.PR ---
Subjective Remarks This is a 56-year-old female history of hypertension that presents to ED and [facility] and subsequently transferred to the chest pain center to further evaluate chest discomfort. She states she has had 4 days of constant chest discomfort. Describes it as sharp. Worsened with certain movements. Denies associated shortness of breath, nausea, or diaphoresis. Found last night that the discomfort was radiating down the left arm. Denies history of CAD. States she's had chemical stress test in the past most recently being about a year and a half ago at [place] and that was okay. She also has double to nonproductive cough for last 2 days which also seems to worsen the discomfort that she has had constantly for 4 days. 03-26 patient had positive stress test. Underwent cardiac catheterization please see report underwent stenting to the LAD Will need to be on BRILLINTA AND aspirin Need to follow-up with cardiology Will need to follow-up with her primary care physician Dr. Shamar Guerrero in [place] Had some chest pain earlier today but that may be secondary to reperfusion Hopefully can be discharged later today if cleared by cardiology Medications have been adjusted Objective Vitals Vital Signs Date Time Temp Pulse Resp B/P (MAP) Pulse Ox O2 Delivery O2 Flow Rate FiO2 03/26/17 07:54 98.4 100 18 119/96 (104) 97 03/26/17 06:00 68 03/26/17 03:00 84 18 159/64 (95) 95 03/26/17 02:00 71 18 120/81 (94) 95 03/26/17 01:00 69 18 138/88 (105) 95 03/26/17 00:00 77 18 111/60 (77) 95 03/26/17 00:00 75 03/25/17 23:07 75 18 138/82 (100) 98 03/25/17 22:30 73 18 126/78 (94) 98 03/25/17 22:03 73 20 142/100 (114) 98 03/25/17 21:30 71 18 131/87 (102) 99 03/25/17 21:15 73 20 134/94 (107) 99 03/25/17 21:00 73 22 143/95 (111) 98 03/25/17 20:45 69 18 130/80 (97) 99 03/25/17 20:30 97.5 74 18 141/87 (105) 97 03/25/17 15:00 101 03/25/17 14:36 98.0 94 18 156/88 (110) 99 03/25/17 10:45 73 I/O 03/25/17 03/25/17 03/25/17 03/26/17 03/26/17 03/26/17 07:00 15:00 23:00 07:00 15:00 23:00 Intake Total 1300 ml Output Total 400 ml Balance 900 ml Intake Oral 480 ml IV Total 820 ml Output Urine Total 400 ml Result Diagram: 03/26/17 0435 03/26/17 0435 Other Results Laboratory Tests Test 03/26/17 04:35 White Blood Count 12.0 TH/MM3 Red Blood Count 3.85 MIL/MM3 Hemoglobin 10.7 GM/DL Hematocrit 32.9 % Mean Corpuscular Volume 85.5 FL Mean Corpuscular Hemoglobin 27.9 PG Mean Corpuscular Hemoglobin Concent 32.6 % Red Cell Distribution Width 14.9 % Platelet Count 313 TH/MM3 Mean Platelet Volume 7.6 FL Neutrophils (%) (Auto) 80.5 % Lymphocytes (%) (Auto) 13.7 % Monocytes (%) (Auto) 5.6 % Eosinophils (%) (Auto) 0.1 % Basophils (%) (Auto) 0.1 % Neutrophils # (Auto) 9.6 TH/MM3 Lymphocytes # (Auto) 1.6 TH/MM3 Monocytes # (Auto) 0.7 TH/MM3 Eosinophils # (Auto) 0.0 TH/MM3 Basophils # (Auto) 0.0 TH/MM3 CBC Comment DIFF FINAL Differential Comment Blood Urea Nitrogen 18 MG/DL Creatinine 1.10 MG/DL Random Glucose 110 MG/DL Total Protein 7.6 GM/DL Albumin 3.0 GM/DL Calcium Level 8.3 MG/DL Phosphorus Level 3.0 MG/DL Magnesium Level 2.1 MG/DL Alkaline Phosphatase 89 U/L Aspartate Amino Transf (AST/SGOT) 11 U/L Alanine Aminotransferase (ALT/SGPT) 15 U/L Total Bilirubin 0.2 MG/DL Sodium Level 139 MEQ/L Potassium Level 3.2 MEQ/L Chloride Level 108 MEQ/L Carbon Dioxide Level 22.0 MEQ/L Anion Gap 9 MEQ/L Estimat Glomerular Filtration Rate 62 ML/MIN Total Creatine Kinase 85 U/L Triglycerides Level 77 MG/DL Cholesterol Level 170 MG/DL LDL Cholesterol 100 MG/DL HDL Cholesterol 54.4 MG/DL Cholesterol/HDL Ratio 3.12 RATIO Free Thyroxine 0.91 NG/DL Thyroid Stimulating Hormone 3rd Gen 0.313 uIU/ML Imaging Last Impressions Myocardial Perfusion Scan Nuc Med 03/25/17 0000 Signed Impressions: Service Date/Time: Saturday, March 25, 2017 12:17 - CONCLUSION: Marked stress-induced ischemia anterior septum and inferior wall. RISK CATEGORY: Intermediate (1-3%% Annual Mortality Rate) Faisal Moser MD FACR Objective Remarks GENERAL: Awake alert oriented talkative and cooperative appears stated age SKIN: Warm and dry. HEAD: Atraumatic. Normocephalic. EYES: Pupils equal and round. No scleral icterus. No injection or drainage. Extraocular muscles intact ENT: No nasal bleeding or discharge. Mucous membranes pink and moist. Tongue is midline NECK: Trachea midline. No JVD. Supple CARDIOVASCULAR: Regular rate and rhythm. S1 and S2 no S3 or S4 no heave or thrill or rub or gallop RESPIRATORY: No accessory muscle use. Clear to auscultation. Breath sounds equal bilaterally. GASTROINTESTINAL: Abdomen soft, non-tender, nondistended. Hepatic and splenic margins not palpable. MUSCULOSKELETAL: Extremities without clubbing, cyanosis, or edema. No obvious deformities. Right wrist is stable NEUROLOGICAL: Awake and alert. No obvious cranial nerve deficits. Motor grossly within normal limits. Five out of 5 muscle strength in the arms and legs. Normal speech. Right wrist stable PSYCHIATRIC: Appropriate mood and affect; insight and judgment normal. Procedures CARDIAC CATHETERIZATION Pt Name: TOMAS RONDON#: [id number]: HCISAttended By:Faisal Watt DOMarshall Regional Medical Centert #:[id number] By: Draft Signed reports reside in the EMR cc: GARRICK CISNEROS M.D. DATE: 03/25/2017. PROCEDURE PERFORMED: Coronary angiography, ISR intravascular ultrasound, balloon stenting and balloon angioplasty of the mid left anterior descending coronary artery. BRIEF HISTORY: Kenyatta Rondon is a 56-year-old woman with multiple risk factors who came in with chest pain. The chest pain was atypical. Troponins were negative but nuclear stress test showed high-risk large area of ischemia. DESCRIPTION OF THE PROCEDURE IN DETAIL: The patient was brought to the cardiac rn labor delivery in a fasting state. The right wrist was prepped and draped in the sterile fashion. Using ultrasound, the right radial artery was accessed and a Terumo slender sheath was placed. Next I used a tiger catheter to image the left and right coronary arteries. The left coronary artery was large, and despite adequate engagement with the left main, I could not get enough contrast in the left anterior descending to adequately assess it. Angiography of the right coronary artery was diagnostic however and there was nothing significant of the right coronary artery. I then switched to a 6-Finnish left 3.5 Henri catheter. Angiography now demonstrated a mid left anterior descending lesion that was ambiguous. It looked to be in the 50% to 70% range. I decided I would need to do IFR. I tried a 6-Finnish EBU 3.5 guiding catheter which would not properly engage. I switched to a 6-Finnish XB 3.5 guiding catheter, which engaged the left main nicely. Intravenous heparin was given and ACT was checked, and it was 268. An additional 1500 units of heparin was given. I then used a [place] wire to obtain IFR of the mid left anterior descending being sure to give 200 micrograms of intracoronary nitroglycerin before measurement. IFR measurement came back at 0.86. Based on this, I decided to stent. The wire was passed out distally in the inferoapical segment of the left anterior descending. I was not sure of the size so I used intravascular ultrasound. There were two tandem lesions and it looked like a fairly normal segment in-between. ___ demonstrated that the area of severe disease was continuous. It appeared to be close to a 3.0 mm distally and a 3.5 mm proximally. I chose a 3.0 x 22 mm Resolute [place] stent and positioned this so that it was in both lesions and deployed the stent at 18 atmospheres. Angiography demonstrated that the distal portion of the stent was well-sized and the proximal stent needed to be slightly bigger. I used a 3.5 x 15 mm NC balloon and dilated the central portion of the stent to 16 atmospheres and the proximal portion of the stent at 20 atmospheres. The coronary angiography now demonstrates an excellent result with a slight step on both ends and complete resolution of the stenosis. There is also better filling of the left anterior descending and NAHUN III flow. The patient tolerated the procedure well. She received quite a bit of Versed and fentanyl for sedation. There were no complications. The estimated blood loss was 20 cc. FINDINGS: 1. Hemodynamics: Aortic pressure was 115/86 with a mean of 99. 2. Coronary angiography: The left main coronary artery is extremely large and it bifurcates into the left anterior descending and circumflex vessels. The left anterior descending has 20% proximal and mid irregularity. The left anterior descending artery is tortuous in its midsegment angiographically and has a lesion in the 50-70% severity. There are tandem lesions. The more proximal lesion looked to be more like 50%. Intravascular ultrasound demonstrated continuous lesion and appeared to be close to 80% and the IFR was 0.86. The right coronary artery is dominant and has irregularities only. 3. Results of stenting: Following stenting of the mid-LAD, a 0% residual stenosis was achieved with no evidence of thrombus or dissection and excellent angiographic appearance PLAN: The patient is being treated with aspirin and Brilinta. She remains stable. Hopefully we can get her discharged tomorrow, which is [facility]. HAD POSITIVE STRESS TEST-- THEREFORE HAD CARDIAC CATH Medications and IVs Current Medications Acetaminophen (Tylenol) 500 mg Q4H PRN PO HEADACHE Last administered on 01:24; Start 03/25/17 at 01:00 Ondansetron HCl (Zofran Inj) 4 mg Q6H PRN IV PUSH NAUSEA Last administered on 03/25/17 01:24; Start 03/25/17 at 01:00 Morphine Sulfate (Morphine Inj) 4 mg NOW ONCE IV ; Start 03/25/17 at 04:00; Stop 03/25/17 at 04:01; Status DC Morphine Sulfate (Morphine Inj) 4 mg NOW ONCE IV Last administered on 04:35; Start 03/25/17 at 05:00; Stop 03/25/17 at 05:01; Status DC Cyclobenzaprine HCl (Flexeril) 10 mg TID PO Last administered on 03/25/17 17: 59; Start 03/25/17 at 13:00 Hydralazine HCl (Apresoline) 100 mg TID PO Last administered on 03/25/17 17: 59; Start 03/25/17 at 13:00 Losartan Potassium (Cozaar) 100 mg DAILY PO Last administered on 03/25/17 10: 53; Start 03/25/17 at 11:00 Nortriptyline HCl (Pamelor) 75 mg HS PO Last administered on 03/25/17 22:28; Start 03/25/17 at 21:00 Potassium Chloride (KCl) 20 meq BID PO Last administered on 03/25/17 21:30; Start 03/25/17 at 11:00 Levothyroxine Sodium (Synthroid) 112 mcg DAILY@0600 PO Last administered on 06:06; Start 03/25/17 at 10:45 Amlodipine Besylate (Norvasc) 5 mg BID PO Last administered on 03/25/17 21:30 ; Start 03/25/17 at 11:00 Clonidine (Catapres) 0.3 mg TID PO Last administered on 03/25/17 17:59; Start 03/25/17 at 13:00 Metoprolol Tartrate (Lopressor) 50 mg TID PO Last administered on 03/25/17 17 :59; Start 03/25/17 at 13:00 Dexamethasone Sodium Phosphate (Decadron Inj) 8 mg NOW ONCE IV PUSH Last administered on 03/25/17 10:53; Start 03/25/17 at 11:00; Stop 03/25/17 at 11 :01; Status DC Levothyroxine Sodium (Synthroid) 25 mcg DAILY@0600 PO Last administered on 06:06; Start 03/25/17 at 10:45 Regadenoson (Lexiscan Inj) 0.4 mg STK-MED ONCE .ROUTE Last administered on 12:22; Start 03/25/17 at 12:22; Stop 03/25/17 at 12:23; Status DC Morphine Sulfate (Morphine Inj) 4 mg Q4H PRN IV PUSH PAIN SCALE 6 TO 10 Last administered on 03/25/17 15:40; Start 03/25/17 at 15:00 Acetaminophen/ Hydrocodone Bitart ([place] 5-325 Mg) 1 tab Q4H PRN PO PAIN SCALE 1 TO 5; Start 03/25/17 at 15:00; Stop 03/25/17 at 20:35; Status DC Topiramate (Topamax) 50 mg BID PO Last administered on 03/25/17 22:28; Start 03/25/17 at 21:00 Clonidine (Catapres) 0.1 mg Q4H PRN PO SBP>160, DBP>90; Start 03/25/17 at 15: 45 Sodium Chloride 1,000 ml @ 100 mls/hr Q10H IV Last administered on 03/25/17 16:27; Start 03/25/17 at 15:59; Stop 03/30/17 at 15:58 Diphenhydramine HCl (Benadryl) 25 mg ETHYLENE COMPRESSOR OPERATOR STAT PO Last administered on 16:27; Start 03/25/17 at 16:09; Stop 03/25/17 at 16:10; Status DC Diazepam (Valium) 5 mg ETHYLENE COMPRESSOR OPERATOR STAT PO Last administered on 03/25/17 16:27; Start 03/25/17 at 15:59; Stop 03/25/17 at 16:08; Status DC Heparin Sodium/ Sodium Chloride 1,000 ml @ As Directed STK-MED ONCE .ROUTE Last administered on 03/25/17 18:23; Start 03/25/17 at 18:23; Stop 03/25/17 at 18:24; Status DC Midazolam HCl (Versed Inj) 2 mg STK-MED ONCE .ROUTE Last administered on 19:13; Start 03/25/17 at 18:29; Stop 03/25/17 at 18:30; Status DC Verapamil HCl (Isoptin Inj) 5 mg STK-MED ONCE .ROUTE Last administered on 03/25 19:00; Start 03/25/17 at 18:29; Stop 03/25/17 at 18:30; Status DC Heparin Sodium (Porcine) (Heparin Inj) 10,000 units STK-MED ONCE .ROUTE Last administered on 03/25/17 19:00; Start 03/25/17 at 18:29; Stop 03/25/17 at 18 :30; Status DC Nitroglycerin 5 ml @ As Directed STK-MED ONCE .ROUTE Last administered on 03/25 19:00; Start 03/25/17 at 18:29; Stop 03/25/17 at 18:30; Status DC Midazolam HCl (Versed Inj) 2 mg STK-MED ONCE .ROUTE Last administered on 18:46; Start 03/25/17 at 18:45; Stop 03/25/17 at 18:46; Status DC Fentanyl Citrate (fentaNYL INJ) 100 mcg STK-MED ONCE .ROUTE Last administered on 03/25/17 18:48; Start 03/25/17 at 18:47; Stop 03/25/17 at 18:48; Status DC Midazolam HCl (Versed Inj) 2 mg STK-MED ONCE .ROUTE Last administered on 18:44; Start 03/25/17 at 19:12; Stop 03/25/17 at 19:13; Status DC Aspirin (Aspirin Chew) 324 mg STK-MED ONCE .ROUTE Last administered on 20:10; Start 03/25/17 at 20:03; Stop 03/25/17 at 20:04; Status DC Ticagrelor (Brilinta) 180 mg STK-MED ONCE PO Last administered on 03/25/17 20 :10; Start 03/25/17 at 20:03; Stop 03/25/17 at 20:04; Status DC Sodium Chloride 1,000 ml @ 100 mls/hr Q10H IV Last administered on 03/25/17 22:30; Start 03/25/17 at 20:16; Stop 03/26/17 at 08:15; Status DC Acetaminophen (Tylenol) 325 mg Q4H PRN PO PAIN SCALE 1 TO 2; Start 03/25/17 at 20:30 Oxycodone/ Acetaminophen (Percocet 5-325 Mg) 1 tab Q4H PRN PO PAIN SCALE 3 TO 5; Start 03/25/17 at 20:30 Oxycodone/ Acetaminophen (Percocet 10-325 Mg) 1 tab Q4H PRN PO PAIN SCALE 6 TO 10 Last administered on 03/26/17 06:12; Start 03/25/17 at 20:30 Morphine Sulfate (Morphine Inj) 2 mg Q30M PRN IV PUSH BREAKTHROUGH PAIN; Start 03/25/17 at 20:30 Temazepam (Restoril) 15 mg HS PRN PO SLEEP Last administered on 03/25/17 22: 39; Start 03/25/17 at 20:30 Ondansetron HCl (Zofran Inj) 4 mg Q6H PRN IVP NAUSEA; Start 03/25/17 at 20:30 Aspirin (Aspirin Chew) 81 mg DAILY PO ; Start 03/26/17 at 09:00 Ticagrelor (Brilinta) 90 mg BID PO ; Start 03/26/17 at 09:00 Bacitracin (Bacitracin Oint Packet) 0.9 gm ONCE ONCE TOP Last administered on 03/25/17t 20:30; Start 03/25/17 at 20:30; Stop 03/25/17 at 20:42; Status DC Atorvastatin Calcium (Lipitor) 40 mg DAILY PO ; Start 03/26/17 at 09:00 Potassium Chloride (KCl) 60 meq ONCE ONCE PO ; Start 03/26/17 at 09:00; Stop 03/26/17 at 09:01; Status DC A/P Problem List: (1) Chest pain ICD Code: R07.9 - Chest pain, unspecified Status: Acute (2) Hypokalemia ICD Code: E87.6 - Hypokalemia Status: Acute Assessment and Plan Had chest pain. Underwent stress test that was positive. Underwent cardiac catheterization please see report had stenting and believed to the LAD with a drug-eluting stent Will need to be on BRILLINTA as well as aspirin And hopefully be discharged later today Hypothyroidism continue on thyroid medication Hypertension continue on home medications Hypokalemia Will replace COPD recommend smoking cessation Medications have been adjusted We'll also need to be on a statin Hopefully discharge later today if okay with cardiology Discharge Planning If cleared by cardiology discharged to home today Faisal Watt DO Mar 26, 2017 09:37
[2017-03-26] MEDS: hydrALAZINE HCL 25 MG TAB PO SCH ×2 (09:38→12:59)
[2017-03-26] MEDS: amLODIPine BESYLATE 5 MG TAB PO SCH (09:39)
[2017-03-26] MEDS: cloNIDine HCL 0.3 MG TAB PO SCH ×2 (09:39→12:59)
[2017-03-26] MEDS: LOSARTAN 50 MG TAB PO SCH (09:39)
[2017-03-26] MEDS: CYCLOBENZAPRINE HCL 10 MG TAB PO SCH ×2 (09:39→12:59)
[2017-03-26] MEDS: METOPROLOL TARTRATE 50 MG TAB PO SCH ×2 (09:39→12:59)
[2017-03-26] MEDS ORDERED: LOSA100T PO (09:42)
[2017-03-26] MEDS ORDERED: POTA-163 PO (09:42)
[2017-03-26] MEDS ORDERED: NORT75CA PO (09:42)
[2017-03-26] MEDS ORDERED: ATOR40TA16 PO (09:42)
[2017-03-26] MEDS ORDERED: ASPI81 PO (09:42)
[2017-03-26] MEDS ORDERED: CLON0.3T PO (09:42)
[2017-03-26] MEDS ORDERED: AMLO5TAB2 PO (09:42)
[2017-03-26] MEDS ORDERED: TOPA50TA7 PO (09:42)
[2017-03-26] MEDS ORDERED: LEVO-86 PO (09:42)
[2017-03-26] MEDS ORDERED: BRIL90TA PO (09:42)
[2017-03-26] MEDS ORDERED: HYDR-3799 PO (09:42)
[2017-03-26] MEDS ORDERED: METO50TA PO (09:42)
[2017-03-26] MEDS ORDERED: NITR1SUB3 SL (09:44)
--- NOTE | 2017-03-26 09:46 | HHI.DS ---
Discharge Summary Admission Date Mar 25, 2017 at 20:19 Discharge Date: Mar 26, 2017 Admitting Diagnosis CHEST PAIN (1) Chest pain ICD Code: R07.9 - Chest pain, unspecified Diagnosis: Principal Status: Acute (2) Hypokalemia ICD Code: E87.6 - Hypokalemia Diagnosis: Secondary Status: Acute (3) CAD (coronary artery disease) ICD Code: I25.10 - Atherosclerotic heart disease of [place] coronary artery without angina pectoris Diagnosis: Principal (4) Hyperlipidemia ICD Code: E78.5 - Hyperlipidemia, unspecified Diagnosis: Secondary (5) Hypothyroidism ICD Code: E03.9 - Hypothyroidism, unspecified Diagnosis: Secondary Procedures CARDIAC CATHETERIZATION Pt Name: TOMAS RONDONMR#: [id number]: HCISAttended By:Felix Carranza #:[id number] By: Draft Signed reports reside in the EMR cc: GARRICK DIXON M.D. DATE: 03/25/2017. PROCEDURE PERFORMED: Coronary angiography, ISR intravascular ultrasound, balloon stenting and balloon angioplasty of the mid left anterior descending coronary artery. BRIEF HISTORY: Kenytata Rondon is a 56-year-old woman with multiple risk factors who came in with chest pain. The chest pain was atypical. Troponins were negative but nuclear stress test showed high-risk large area of ischemia. DESCRIPTION OF THE PROCEDURE IN DETAIL: The patient was brought to the cardiac laboratory apparatus glass grinder in a fasting state. The right wrist was prepped and draped in the sterile fashion. Using ultrasound, the right radial artery was accessed and a Terumo slender sheath was placed. Next I used a tiger catheter to image the left and right coronary arteries. The left coronary artery was large, and despite adequate engagement with the left main, I could not get enough contrast in the left anterior descending to adequately assess it. Angiography of the right coronary artery was diagnostic however and there was nothing significant of the right coronary artery. I then switched to a 6-Hungarian left 3.5 Henri catheter. Angiography now demonstrated a mid left anterior descending lesion that was ambiguous. It looked to be in the 50% to 70% range. I decided I would need to do IFR. I tried a 6-Hungarian EBU 3.5 guiding catheter which would not properly engage. I switched to a 6-Hungarian XB 3.5 guiding catheter, which engaged the left main nicely. Intravenous heparin was given and ACT was checked, and it was 268. An additional 1500 units of heparin was given. I then used a [place] wire to obtain IFR of the mid left anterior descending being sure to give 200 micrograms of intracoronary nitroglycerin before measurement. IFR measurement came back at 0.86. Based on this, I decided to stent. The wire was passed out distally in the inferoapical segment of the left anterior descending. I was not sure of the size so I used intravascular ultrasound. There were two tandem lesions and it looked like a fairly normal segment in-between. ___ demonstrated that the area of severe disease was continuous. It appeared to be close to a 3.0 mm distally and a 3.5 mm proximally. I chose a 3.0 x 22 mm Resolute Acworth stent and positioned this so that it was in both lesions and deployed the stent at 18 atmospheres. Angiography demonstrated that the distal portion of the stent was well-sized and the proximal stent needed to be slightly bigger. I used a 3.5 x 15 mm NC balloon and dilated the central portion of the stent to 16 atmospheres and the proximal portion of the stent at 20 atmospheres. The coronary angiography now demonstrates an excellent result with a slight step on both ends and complete resolution of the stenosis. There is also better filling of the left anterior descending and NAHUN III flow. The patient tolerated the procedure well. She received quite a bit of Versed and fentanyl for sedation. There were no complications. The estimated blood loss was 20 cc. FINDINGS: 1. Hemodynamics: Aortic pressure was 115/86 with a mean of 99. 2. Coronary angiography: The left main coronary artery is extremely large and it bifurcates into the left anterior descending and circumflex vessels. The left anterior descending has 20% proximal and mid irregularity. The left anterior descending artery is tortuous in its midsegment angiographically and has a lesion in the 50-70% severity. There are tandem lesions. The more proximal lesion looked to be more like 50%. Intravascular ultrasound demonstrated continuous lesion and appeared to be close to 80% and the IFR was 0.86. The right coronary artery is dominant and has irregularities only. 3. Results of stenting: Following stenting of the mid-LAD, a 0% residual stenosis was achieved with no evidence of thrombus or dissection and excellent angiographic appearance PLAN: The patient is being treated with aspirin and Brilinta. She remains stable. Hopefully we can get her discharged tomorrow, which is [place] [facility]. HAD POSITIVE STRESS TEST-- THEREFORE HAD CARDIAC CATH Brief History - From Admission This is a 56-year-old female history of hypertension that presents to ED and [facility] and subsequently transferred to the chest pain center to further evaluate chest discomfort. She states she has had 4 days of constant chest discomfort. Describes it as sharp. Worsened with certain movements. Denies associated shortness of breath, nausea, or diaphoresis. Found last night that the discomfort was radiating down the left arm. Denies history of CAD. States she's had chemical stress test in the past most recently being about a year and a half ago at [facility] and that was okay. She also has double to nonproductive cough for last 2 days which also seems to worsen the discomfort that she has had constantly for 4 days. 03-26 patient had positive stress test. Underwent cardiac catheterization please see report underwent stenting to the LAD Will need to be on BRILLINTA AND aspirin Need to follow-up with cardiology Will need to follow-up with her primary care physician Dr. Shamar Guerrero in [place] Had some chest pain earlier today but that may be secondary to reperfusion Hopefully can be discharged later today if cleared by cardiology Medications have been adjusted CBC/BMP: 03/26/17 0435 03/26/17 0435 Significant Findings Laboratory Tests Test 03/26/17 04:35 White Blood Count 12.0 TH/MM3 (4.0-11.0) Red Blood Count 3.85 MIL/MM3 (4.00-5.30) Hemoglobin 10.7 GM/DL (11.6-15.3) Hematocrit 32.9 % (35.0-46.0) Neutrophils (%) (Auto) 80.5 % (16.0-70.0) Neutrophils # (Auto) 9.6 TH/MM3 (1.8-7.7) Creatinine 1.10 MG/DL (0.50-1.00) Random Glucose 110 MG/DL (74-106) Albumin 3.0 GM/DL (3.4-5.0) Calcium Level 8.3 MG/DL (8.5-10.1) Aspartate Amino Transf (AST/SGOT) 11 U/L (15-37) Potassium Level 3.2 MEQ/L (3.5-5.1) Chloride Level 108 MEQ/L (98-107) Estimat Glomerular Filtration Rate 62 ML/MIN (>89) LDL Cholesterol 100 MG/DL (0-99) Thyroid Stimulating Hormone 3rd Gen 0.313 uIU/ML (0.358-3.740) Imaging Last Impressions Myocardial Perfusion Scan Nuc Med 03/25/17 0000 Signed Impressions: Service Date/Time: Saturday, March 25, 2017 12:17 - CONCLUSION: Marked stress-induced ischemia anterior septum and inferior wall. RISK CATEGORY: Intermediate (1-3%% Annual Mortality Rate) Faisal Moser MD FACR PE at Discharge GENERAL: Awake alert oriented talkative and cooperative appears stated age SKIN: Warm and dry. HEAD: Atraumatic. Normocephalic. EYES: Pupils equal and round. No scleral icterus. No injection or drainage. Extraocular muscles intact ENT: No nasal bleeding or discharge. Mucous membranes pink and moist. Tongue is midline NECK: Trachea midline. No JVD. Supple CARDIOVASCULAR: Regular rate and rhythm. S1 and S2 no S3 or S4 no heave or thrill or rub or gallop RESPIRATORY: No accessory muscle use. Clear to auscultation. Breath sounds equal bilaterally. GASTROINTESTINAL: Abdomen soft, non-tender, nondistended. Hepatic and splenic margins not palpable. MUSCULOSKELETAL: Extremities without clubbing, cyanosis, or edema. No obvious deformities. Right wrist is stable NEUROLOGICAL: Awake and alert. No obvious cranial nerve deficits. Motor grossly within normal limits. Five out of 5 muscle strength in the arms and legs. Normal speech. Right wrist stable PSYCHIATRIC: Appropriate mood and affect; insight and judgment normal. Hospital Course This is a 56-year-old female history of hypertension that presents to ED and [facility] and subsequently transferred to the chest pain center to further evaluate chest discomfort. She states she has had 4 days of constant chest discomfort. Describes it as sharp. Worsened with certain movements. Denies associated shortness of breath, nausea, or diaphoresis. Found last night that the discomfort was radiating down the left arm. Denies history of CAD. States she's had chemical stress test in the past most recently being about a year and a half ago at [facility] and that was okay. She also has double to nonproductive cough for last 2 days which also seems to worsen the discomfort that she has had constantly for 4 days. 12-24 patient had positive stress test. Underwent cardiac catheterization please see report underwent stenting to the LAD Will need to be on BRILLINTA AND aspirin Need to follow-up with cardiology Will need to follow-up with her primary care physician Dr. Shamar Guerrero in [place] Had some chest pain earlier today but that may be secondary to reperfusion Hopefully can be discharged later today if cleared by cardiology Medications have been adjusted Pt Condition on Discharge: Good Discharge Disposition: Discharge Home Discharge Time: > 30 minutes Discharge Instructions DIET: Follow Instructions for: Heart Healthy Diet Activities you can perform: Weight Bearing as Randy Follow up Referrals: Cardiology - 2 Weeks with Garrick Dixon MD PCP Follow-up - 3-5 Days New Medications: Nitroglycerin SL (Nitroglycerin SL) 0.4 Mg Subl 0.4 MG SL DIRECTED PRN for CHEST PAIN, #100 TAB.SL 0 Refills ONE TABLET UNDER THE TONGUE NEEDED FOR CHEST PAIN, MAY REPEAT EVERY FIVE MINUTES FOR A TOTAL OF 3 DOSES OR CALL 911 IF NO RELIEF Aspirin (Tgt Aspirin) 81 Mg Chw 81 MG PO DAILY for Blood Clot Prevention, #30 EA Atorvastatin (Atorvastatin) 40 Mg Tab 40 MG PO DAILY for Cholesterol Management, #30 TAB Ticagrelor (Brilinta) 90 Mg Tab 90 MG PO BID for Blood Clot Prevention, #60 TAB Continued Medications: Amlodipine (Amlodipine) 5 Mg Tab 5 MG PO BID for Blood Pressure Management, #60 TAB 0 Refills (This prescription has been renewed) Clonidine (Clonidine) 0.3 Mg Tab 0.3 MG PO TID for Blood Pressure Management, #90 TAB 0 Refills (This prescription has been renewed) Cyclobenzaprine (Flexeril) 10 Mg Tab 10 MG PO TID for Muscle Spasm, #90 TAB 0 Refills Hydralazine HCl (Hydralazine HCl) 25 Mg Tablet 100 MG PO TID for Blood Pressure Management, #90 TAB 0 Refills (This prescription has been renewed) Levothyroxine (Synthroid) 137 Mcg Tab 137 MCG PO DAILY for Thyroid, #30 TAB 0 Refills (This prescription has been renewed) Losartan (Losartan) 100 Mg Tab 100 MG PO DAILY for Blood Pressure Management, #30 TAB 0 Refills (This prescription has been renewed) Metoprolol Tartrate (Metoprolol Tartrate) 50 Mg Tab 50 MG PO TID for Blood Pressure Management, #90 TAB 0 Refills (This prescription has been renewed) Nortriptyline (Nortriptyline) 75 Mg Cap 75 MG PO HS for Depression Control, #30 CAP 0 Refills (This prescription has been renewed) Potassium Chloride ER (Potassium Chloride ER) 20 Meq Tab 20 MEQ PO BID for Electrolyte Replacement, #60 TAB 0 Refills (This prescription has been renewed) Topiramate (Topamax) 50 Mg Tab 50 MG PO BID for Control Seizures, #60 TAB 0 Refills (This prescription has been renewed) Faisal Watt DO Mar 26, 2017 09:46
[2017-03-26 11:24] LABS: HEMOGLOBIN A1a 0.9 %; HEMOGLOBIN A1b 1.9 %; HEMOGLOBIN Ao 84.3 %; HEMOGLOBIN LA1C 2.2 %
[2017-03-26] MEDS ORDERED: MEDR4PAK PO (13:08)
[2017-03-26] MEDS ORDERED: CYCL10TA PO (13:08)
[2017-03-26] MEDS: MORPHINE SULFATE 2 MG/ML INJ IV PUSH PRN (13:10)
--- NOTE | 2017-03-26 14:28 | PD.CARD.PN ---
Subjective Subjective Remarks Feeling better now Objective Medications Current Medications Medications (Trade) Dose Ordered Sig/Lorraine Route Start Time Stop Time Status Last Admin (Tylenol) 500 mg Q4H PRN PO 03/25/17 01:00 03/25/17 01:24 (Zofran Inj) 4 mg Q6H PRN IV PUSH 03/25/17 01:00 03/25/17 01:24 (Flexeril) 10 mg TID PO 03/25/17 13:00 03/26/17 12:59 (Apresoline) 100 mg TID PO 03/25/17 13:00 03/26/17 12:59 (Cozaar) 100 mg DAILY PO 03/25/17 11:00 03/26/17 09:39 (Pamelor) 75 mg HS PO 03/25/17 21:00 03/25/17 22:28 (KCl) 20 meq BID PO 03/25/17 11:00 03/26/17 09:37 (Synthroid) 112 mcg DAILY@0600 PO 03/25/17 10:45 03/26/17 06:06 (Norvasc) 5 mg BID PO 03/25/17 11:00 03/26/17 09:39 (Catapres) 0.3 mg TID PO 03/25/17 13:00 03/26/17 12:59 (Lopressor) 50 mg TID PO 03/25/17 13:00 03/26/17 12:59 (Synthroid) 25 mcg DAILY@0600 PO 03/25/17 10:45 03/26/17 06:06 (Morphine Inj) 4 mg Q4H PRN IV PUSH 03/25/17 15:00 03/26/17 13:10 (Topamax) 50 mg BID PO 03/25/17 21:00 03/26/17 09:36 (Catapres) 0.1 mg Q4H PRN PO 03/25/17 15:45 Sodium Chloride 1,000 ml @ 100 mls/hr Q10H IV 03/25/17 15:59 03/30/17 15:58 03/25/17 16:27 (Tylenol) 325 mg Q4H PRN PO 03/25/17 20:30 (Percocet 5-325 Mg) 1 tab Q4H PRN PO 03/25/17 20:30 (Percocet 10-325 Mg) 1 tab Q4H PRN PO 03/25/17 20:30 03/26/17 06:12 (Morphine Inj) 2 mg Q30M PRN IV PUSH 03/25/17 20:30 (Restoril) 15 mg HS PRN PO 03/25/17 20:30 03/25/17 22:39 (Zofran Inj) 4 mg Q6H PRN IVP 03/25/17 20:30 (Aspirin Chew) 81 mg DAILY PO 03/26/17 09:00 03/26/17 09:39 (Brilinta) 90 mg BID PO 03/26/17 09:00 03/26/17 09:37 (Lipitor) 40 mg DAILY PO 03/26/17 09:00 03/26/17 09:38 Vital Signs / I&O Vital Signs Date Time Temp Pulse Resp B/P (MAP) Pulse Ox O2 Delivery O2 Flow Rate FiO2 03/26/17 14:16 98 03/26/17 13:00 80 03/26/17 12:53 97.8 77 18 115/76 (89) 99 03/26/17 12:05 98.2 70 18 143/99 (114) 100 03/26/17 12:05 86 03/26/17 09:48 98.4 85 18 139/84 (102) 91 03/26/17 09:00 70 03/26/17 07:54 98.4 100 18 119/96 (104) 97 03/26/17 07:00 69 03/26/17 06:00 68 03/26/17 03:00 84 18 159/64 (95) 95 03/26/17 02:00 71 18 120/81 (94) 95 03/26/17 01:00 69 18 138/88 (105) 95 03/26/17 00:00 77 18 111/60 (77) 95 03/26/17 00:00 75 03/25/17 23:07 75 18 138/82 (100) 98 03/25/17 22:30 73 18 126/78 (94) 98 03/25/17 22:03 73 20 142/100 (114) 98 03/25/17 21:30 71 18 131/87 (102) 99 03/25/17 21:15 73 20 134/94 (107) 99 03/25/17 21:00 73 22 143/95 (111) 98 03/25/17 20:45 69 18 130/80 (97) 99 03/25/17 20:30 97.5 74 18 141/87 (105) 97 03/25/17 15:00 101 03/25/17 14:36 98.0 94 18 156/88 (110) 99 I/O 03/25/17 03/25/17 03/25/17 03/26/17 03/26/17 03/26/17 07:00 15:00 23:00 07:00 15:00 23:00 Intake Total 1300 ml Output Total 400 ml Balance 900 ml Intake Oral 480 ml IV Total 820 ml Output Urine Total 400 ml Physical Exam GENERAL: Well developed, obese, No acute distress. HEENT: Jugular venous pressure is normal. CHEST: Lungs clear to auscultation bilaterally. Unlabored respiratory effort. CARDIAC: Regular rate and rhythm without S3, S4, or murmur. ABDOMEN: Soft, nontender, no hepatosplenomegaly. Bowel sounds present. EXTREMITIES: No clubbing, cyanosis, or edema. Right radial pulse OK. Laboratory Laboratory Tests Test 03/26/17 04:35 White Blood Count 12.0 TH/MM3 Red Blood Count 3.85 MIL/MM3 Hemoglobin 10.7 GM/DL Hematocrit 32.9 % Mean Corpuscular Volume 85.5 FL Mean Corpuscular Hemoglobin 27.9 PG Mean Corpuscular Hemoglobin Concent 32.6 % Red Cell Distribution Width 14.9 % Platelet Count 313 TH/MM3 Mean Platelet Volume 7.6 FL Neutrophils (%) (Auto) 80.5 % Lymphocytes (%) (Auto) 13.7 % Monocytes (%) (Auto) 5.6 % Eosinophils (%) (Auto) 0.1 % Basophils (%) (Auto) 0.1 % Neutrophils # (Auto) 9.6 TH/MM3 Lymphocytes # (Auto) 1.6 TH/MM3 Monocytes # (Auto) 0.7 TH/MM3 Eosinophils # (Auto) 0.0 TH/MM3 Basophils # (Auto) 0.0 TH/MM3 CBC Comment DIFF FINAL Differential Comment Blood Urea Nitrogen 18 MG/DL Creatinine 1.10 MG/DL Random Glucose 110 MG/DL Total Protein 7.6 GM/DL Albumin 3.0 GM/DL Calcium Level 8.3 MG/DL Phosphorus Level 3.0 MG/DL Magnesium Level 2.1 MG/DL Alkaline Phosphatase 89 U/L Aspartate Amino Transf (AST/SGOT) 11 U/L Alanine Aminotransferase (ALT/SGPT) 15 U/L Total Bilirubin 0.2 MG/DL Sodium Level 139 MEQ/L Potassium Level 3.2 MEQ/L Chloride Level 108 MEQ/L Carbon Dioxide Level 22.0 MEQ/L Anion Gap 9 MEQ/L Estimat Glomerular Filtration Rate 62 ML/MIN Hemoglobin A1c 6.0 % Total Creatine Kinase 85 U/L Triglycerides Level 77 MG/DL Cholesterol Level 170 MG/DL LDL Cholesterol 100 MG/DL HDL Cholesterol 54.4 MG/DL Cholesterol/HDL Ratio 3.12 RATIO Free Thyroxine 0.91 NG/DL Thyroid Stimulating Hormone 3rd Gen 0.313 uIU/ML Assessment and Plan Problem List: (1) Hypertension ICD Codes: I10 - Essential (primary) hypertension Plan: stable (2) Stented coronary artery ICD Codes: Z95.5 - Presence of coronary angioplasty implant and graft Plan: cont ASA 81mg and Brilinta (3) Unstable angina ICD Codes: I20.0 - Unstable angina Plan: resolved (4) Hyperlipidemia ICD Codes: E78.5 - Hyperlipidemia, unspecified Plan: cont statin Assessment and Plan OK to DC home. OV 2 weeks Discussed Condition With Jasper Dixon MD Mar 26, 2017 14:28
--- NOTE | 2017-03-26 18:27 | EKG ---
Date Performed: 03/26/2017 Time Performed: 06:04:30 PTAGE: 56 years EKG: Sinus rhythm with 1st degree A-V block Inferior and anterior T wave changes are nonspecific Abnormal ECG Compared to prior tracing no significant change DOCTOR: Julianna Mcgregor Interpretating Date/Time 03/26/2017 18:26:14
== END 2017-03-26 16:14 | disposition home or self-care (01) | DRG 247 ==
LOC: NEDDLT 00:26 → NEPGCP 00:29 → HCIS 18:26 → OBSVTOIN 20:19 → HCIS 20:23
PROVIDERS: ADMIT Hospitalist; ATTEND Hospitalist
PROC: 027034Z Dilation of Coronary Artery, One Artery with Drug-eluting Intraluminal Device, Percutaneous Approach (ICD-10-PCS; principal; 2017-03-25)
PROC: B240ZZ3 Ultrasonography of Single Coronary Artery, Intravascular (ICD-10-PCS; 2017-03-25)
PROC: B2111ZZ Fluoroscopy of Multiple Coronary Arteries using Low Osmolar Contrast (ICD-10-PCS; 2017-03-25)
DX: I25.110 Atherosclerotic heart disease of native coronary artery with unstable angina pectoris (principal); I10 Essential (primary) hypertension; E89.0 Postprocedural hypothyroidism; E87.6 Hypokalemia; E78.5 Hyperlipidemia, unspecified; Z82.49 Family history of ischemic heart disease and other diseases of the circulatory system; Z96.659 Presence of unspecified artificial knee joint
CPT/HCPCS: 78452; 80053; 80061; 82550; 83036; 83735; 84100; 84439; 84443; 85002; 85025; 92978; 93005; 93017; 93454; 93571; 99152; 99153; A9502; C1725; C1753; C1769; C1874; C1887; C1893; J1100; J1644; J2250; J2270; J2405; J2785; J3010; J7030; Q9967

== ENCOUNTER 2017-04-14 10:45 | Inpatient (IN) | payer OTHER, MEDICARE ==
[2017-04-14] VITALS (7 sets, daily range): BP systolic 86–142; BP diastolic 54–84; PULSE 72–82; RESP 16–26; TEMP 98.4–98.7; O2SAT 96–100
[~2017-04-14] VITALS: Ht 162.6 cm; Wt 106.1 kg
[~2017-04-14 10:45] MED LIST changes: +ASPI81 PO; +ATOR40TA16 PO; +BRIL90TA PO; -LEVO137T2 PO; +MEDR4PAK PO; +NITR1SUB3 SL
--- NOTE | 2017-04-14 11:01 | PD ---
HPI Chief Complaint: Chest Pain Time Seen by Provider: 10:59 Travel History International Travel<30 days: No Contact w/Intl Traveler<30days: No Traveled to known affect area: No History of Present Illness HPI 56-year-old female presents the emergency department with substernal chest pain. She was seen this morning at her manager science's office, and sent directly here for further evaluation and treatment. Patient is status post stent placement on March [address] Dixon. EKG done in the office shows inverted T waves in the ventricle leads considering anterior ischemia. She states the pain started yesterday has gotten progressively worse. Patient is complaining of 10 over 10 chest pain similar to her previous cardiac pain. She is taken 2 nitroglycerin prior to arrival with minimal relief. She took aspirin 81 mg this morning as well as her regular anti-lipidemia meds. Patient has previous stent placement in 2013. She is allergic to metronidazole, penicillin, sulfamethoxazole, and trimethoprim. PFSH Past Medical History Chest Pain: Yes COPD: Yes Endocrine: No Gastrointestinal Disorders: Yes (BOWEL OBSTRUCTIONS) Hypertension: Yes Musculoskeletal: No Neurologic: Yes (migraines, temporal arteritis) Respiratory: Yes Migraines: Yes ?: Not Past Surgical History Cholecystectomy: Yes Hysterectomy: Yes Other Surgery: Yes (THYROID REMOVAL) Social History Alcohol Use: No Tobacco Use: No Substance Use: No Allergies-Medications (Allergen,Severity, Reaction): Coded Allergies: metronidazole (Verified Allergy, Severe, 04/14/17) TONGUE SWELLING penicillin G (Verified Allergy, Severe, 04/14/17) RASH sulfamethoxazole (Verified Allergy, Severe, 04/14/17) HIVES trimethoprim (Verified Allergy, Severe, 04/14/17) HIVES Reported Meds & Prescriptions Reported Meds & Active Scripts Active Nitroglycerin SL (Nitroglycerin) 0.4 Mg Subl 0.4 Mg SL DIRECTED PRN ONE TABLET UNDER THE TONGUE NEEDED FOR CHEST PAIN, MAY REPEAT EVERY FIVE MINUTES FOR A TOTAL OF 3 DOSES OR CALL 911 IF NO RELIEF Tgt Aspirin (Aspirin) 81 Mg Chw 81 Mg PO DAILY Brilinta (Ticagrelor) 90 Mg Tab 90 Mg PO BID Potassium Chloride ER (Potassium Chloride) 20 Meq Tab 20 Meq PO BID Synthroid (Levothyroxine Sodium) 137 Mcg Tab 137 Mcg PO DAILY Topamax (Topiramate) 50 Mg Tab 50 Mg PO BID Clonidine (Clonidine HCl) 0.3 Mg Tab 0.3 Mg PO TID Hydralazine HCl 25 Mg Tablet 100 Mg PO TID Amlodipine (Amlodipine Besylate) 5 Mg Tab 5 Mg PO BID Metoprolol Tartrate 50 Mg Tab 50 Mg PO TID Losartan (Losartan Potassium) 100 Mg Tab 100 Mg PO DAILY Reported Prevacid (Lansoprazole) 30 Mg Capdr 30 Mg PO BID Lipitor (Atorvastatin Calcium) 40 Mg Tab 40 Mg PO HS Pamelor (Nortriptyline HCl) 75 Mg Cap 75 Mg PO HS Review of Systems Except as stated in HPI: all other systems reviewed are Neg General / Constitutional: No: Fever Eyes: No: Visual changes HENT: No: Headaches Cardiovascular: Positive: Chest Pain or Discomfort, Dyspnea on exertion, No: Palpitations, Irregular Rhythm, Tachycardia, Diaphoresis, Syncope, Varicosities , Edema, Cyanosis, Varicosities, Phlebitis, Claudication Respiratory: No: Shortness of Breath Gastrointestinal: No: Nausea, Abdominal Pain Genitourinary: No: Dysuria Musculoskeletal: No: Pain Skin: No Rash Neurologic: No: Weakness Psychiatric: No: Depression Endocrine: No: Polydipsia Hematologic/Lymphatic: No: Easy Bruising Physical Exam Narrative GENERAL: Patient appears in moderate distress and somewhat anxious. SKIN: Warm and dry. No diaphoresis. Normal color. Normal turgor. HEAD: Atraumatic. Normocephalic. EYES: Pupils equal and round. No scleral icterus. No injection or drainage. ENT: No nasal bleeding or discharge. Mucous membranes pink and moist. NECK: Trachea midline. No JVD. Supple nontender. CARDIOVASCULAR: Regular rate and rhythm. No murmurs gallops or rubs. RESPIRATORY: No accessory muscle use. Clear to auscultation. Breath sounds equal bilaterally. GASTROINTESTINAL: Abdomen soft, non-tender, nondistended. Hepatic and splenic margins not palpable. MUSCULOSKELETAL: Extremities without clubbing, cyanosis, or edema. No obvious deformities. NEUROLOGICAL: Awake and alert. No obvious cranial nerve deficits. Motor grossly within normal limits. Five out of 5 muscle strength in the arms and legs. Normal speech. PSYCHIATRIC: Appropriate mood and affect; insight and judgment normal. Data Data Last Documented VS Vital Signs Date Time Temp Pulse Resp B/P (MAP) Pulse Ox O2 Delivery O2 Flow Rate FiO2 04/14/17 13:53 74 16 115/64 (81) 98 04/14/17 11:15 2.00 04/14/17 11:15 Nasal Cannula 04/14/17 10:49 98.4 Orders Orders Electrocardiogram (04/14/17 11:01) Ckmb (Isoenzyme) Profile (04/14/17 11:01) Complete Blood Count With Diff (04/14/17 11:01) Comprehensive Metabolic Panel (04/14/17 11:01) Magnesium (Mg) (04/14/17 11:01) Prothrombin Time / Inr (Pt) (04/14/17 11:01) Act Partial Throm Time (Ptt) (04/14/17 11:01) Troponin I (04/14/17 11:01) Lipase (04/14/17 11:01) Chest, Single Ap (04/14/17 11:01) Ecg Monitoring (04/14/17 11:01) Bilateral Bp Monitoring (04/14/17 11:01) Iv Access Insert/Monitor (04/14/17 11:01) Oximetry (04/14/17 11:01) Oxygen Administration (04/14/17 11:01) Aspirin Chew (Aspirin Chew) (04/14/17 11:15) Nitroglycerin 2% Oint (Nitroglycerin 2% (04/14/17 11:15) Sodium Chloride 0.9% Flush (Ns Flush) (04/14/17 11:15) Sodium Chlorid 0.9% 500 Ml Inj (Ns 500 M (04/14/17 11:15) Morphine Inj (Morphine Inj) (04/14/17 11:15) Lorazepam Inj (Ativan Inj) (04/14/17 11:15) Ct Pulmonary Angiogram (04/14/17 11:08) CKMB (04/14/17 11:20) CKMB% (04/14/17 11:20) Vascular Access Team Consult/P PRN (04/14/17 12:42) Vascular Poc Ultrasound (04/14/17 ) Iohexol 350 Inj (Omnipaque 350 Inj) (04/14/17 14:33) Admit Order (Ed Use Only) (04/14/17 14:59) Labs Laboratory Tests Test 04/14/17 11:20 White Blood Count 10.1 TH/MM3 Red Blood Count 4.06 MIL/MM3 Hemoglobin 11.4 GM/DL Hematocrit 35.3 % Mean Corpuscular Volume 87.0 FL Mean Corpuscular Hemoglobin 28.1 PG Mean Corpuscular Hemoglobin Concent 32.2 % Red Cell Distribution Width 15.0 % Platelet Count 300 TH/MM3 Mean Platelet Volume 7.8 FL Neutrophils (%) (Auto) 74.1 % Lymphocytes (%) (Auto) 17.0 % Monocytes (%) (Auto) 7.6 % Eosinophils (%) (Auto) 0.8 % Basophils (%) (Auto) 0.5 % Neutrophils # (Auto) 7.5 TH/MM3 Lymphocytes # (Auto) 1.7 TH/MM3 Monocytes # (Auto) 0.8 TH/MM3 Eosinophils # (Auto) 0.1 TH/MM3 Basophils # (Auto) 0.0 TH/MM3 CBC Comment DIFF FINAL Differential Comment Prothrombin Time 11.8 SEC Prothromb Time International Ratio 1.2 RATIO Activated Partial Thromboplast Time 31.3 SEC Blood Urea Nitrogen 18 MG/DL Creatinine 1.35 MG/DL Random Glucose 92 MG/DL Total Protein 8.9 GM/DL Albumin 3.5 GM/DL Calcium Level 8.6 MG/DL Magnesium Level 2.1 MG/DL Alkaline Phosphatase 102 U/L Aspartate Amino Transf (AST/SGOT) 31 U/L Alanine Aminotransferase (ALT/SGPT) 28 U/L Total Bilirubin 0.3 MG/DL Sodium Level 139 MEQ/L Potassium Level 3.8 MEQ/L Chloride Level 107 MEQ/L Carbon Dioxide Level 24.7 MEQ/L Anion Gap 7 MEQ/L Estimat Glomerular Filtration Rate 49 ML/MIN Total Creatine Kinase 166 U/L Creatine Kinase MB 0.7 NG/ML Troponin I LESS THAN 0.02 NG/ML Lipase 76 U/L [facility] Medical Decision Making Medical Screen Exam Complete: Yes Emergency Medical Condition: Yes Differential Diagnosis Atypical chest pain. Cardiac syndrome. Anxiety. Narrative Course Patient is quite anxious and in moderate distress. Labs ordered including CBC, CMP, lipase, cardiac panel. IV access is obtained and the patient is given 2 mg morphine IV, 1 mg lorazepam IV, 1 inch nitroglycerin paste. Patient is given 324 mg aspirin by mouth. Chest x-ray and EKG are ordered. Call placed to Dr. Dixon, the patient's manager science. He saw her earlier this morning. He feels more than likely this is more anxiety than true cardiac emergency. The patient did however have a stent placement less than 1 month ago , so full workup is recommended including a PE study. Chest x-ray is unremarkable per radiologist. EKG shows sinus rhythm with first AV block with flipped T waves in V1 and V2 V3 leads which are nonspecific. CBC is unremarkable. Coagulation studies show PT 11.8, INR 1.2, APTT 31.3. CMP remarkable for creatinine slightly elevated 1.39, GFR is 49, total protein is 8.9, first troponin is less than 0.02. CTA shows no obvious PE. Patient will be admitted to the hospitalist service with consult to Dr. Dixon per his request. Diagnosis Primary Impression: Chest pain Qualified Codes: R07.9 - Chest pain, unspecified Admitting Information Admitting Physician Requests: Admit Condition: Stable Nicholas Blanco Apr 14, 2017 11:01
[2017-04-14] MEDS ORDERED: LORazepam 2 MG/ML VIAL IV PUSH ONE (11:15)
[2017-04-14] MEDS ORDERED: SODIUM CHLORID 0.9% 500 ML INJ 500 ML IV ONE (11:15)
[2017-04-14] MEDS ORDERED: MORPHINE SULFATE 2 MG/ML INJ IV PUSH ONE ×2 (11:15→16:15)
[2017-04-14] MEDS ORDERED: NITROGLYCERIN 2% OINT 1 GM PACKET TOP ONE (11:15)
[2017-04-14] MEDS ORDERED: ASPIRIN 81 MG CHEW TAB PO ONE (11:15)
[2017-04-14] MEDS: SODIUM CHLORIDE 0.9% FLUSH 10 ML FLUSH IVF PRN (11:20)
[2017-04-14 11:40] LABS: AUTOMATED NEUTROPHIL # 7.5 TH/MM3 (1.8-7.7); BASOPHIL % 0.5 % (0.0-2.0); EOSINOPHIL # 0.1 TH/MM3 (0-0.4); EOSINOPHIL % 0.8 % (0.0-4.0); HEMATOCRIT 35.3 % (35.0-46.0); HEMOGLOBIN 11.4 GM/DL (11.6-15.3); LYMPHOCYTE # 1.7 TH/MM3 (1.0-4.8); MEAN CORPUSCULAR HEMOGLOBIN 28.1 PG (27.0-34.0); MEAN CORPUSCULAR HGB CONC 32.2 % (32.0-36.0); MEAN PLATELET VOLUME 7.8 FL (7.0-11.0); MONO % 7.6 % (0.0-8.0); MONOCYTE # 0.8 TH/MM3 (0-0.9); NEUT % 74.1 % (16.0-70.0); PLATELET COUNT 300 TH/MM3 (150-450); RED BLOOD COUNT 4.06 MIL/MM3 (4.00-5.30); WHITE BLOOD COUNT 10.1 TH/MM3 (4.0-11.0)
[2017-04-14 11:47] LABS: INTERNATIONAL NORMALIZED RATIO 1.2 RATIO; PROTHROMBIN TIME - PATIENT 11.8 SEC (9.8-11.6)
[2017-04-14 12:04] LABS: ALBUMIN 3.5 GM/DL (3.4-5.0); ALT (GPT) 28 U/L (10-53); AST (GOT) 31 U/L (15-37); BICARBONATE 24.7 MEQ/L (21.0-32.0); BLOOD UREA NITROGEN 18 MG/DL (7-18); CALCIUM 8.6 MG/DL (8.5-10.1); CHLORIDE 107 MEQ/L (98-107); CREATININE 1.35 MG/DL (0.50-1.00); GLOMERULAR FILTRATION RATE 49 ML/MIN (>89); GLUCOSE,RANDOM 92 MG/DL (74-106); LIPASE 76 U/L (73-393); MAGNESIUM 2.1 MG/DL (1.5-2.5); SODIUM (NA) 139 MEQ/L (136-145)
[2017-04-14 12:06] LABS: ALKALINE PHOSPHATASE 102 U/L (45-117); TOTAL BILIRUBIN ADULT 0.3 MG/DL (0.2-1.0); TOTAL PROTEIN 8.9 GM/DL (6.4-8.2); TROPONIN I LESS THAN 0.02 NG/ML (0.02-0.05)
[2017-04-14] MEDS ORDERED: LIPI40TA PO (13:20)
[2017-04-14] MEDS ORDERED: PREV30CA36 PO (13:20)
[2017-04-14] MEDS ORDERED: PAME75CA PO (13:20)
--- NOTE | 2017-04-14 14:08 | RADRPT ---
EXAM DATE/TIME: 04/14/2017 13:11 [facility] COMPARISON: CHEST SINGLE AP, March 24, 2017, 16:10. INDICATIONS : Chest pain. MEDICAL HISTORY : Chronic obstructive pulmonary disease. SURGICAL HISTORY : stent 03/2017 ENCOUNTER: Initial ACUITY: 1 day PAIN SCORE: 8/10 LOCATION: Bilateral chest FINDINGS: A single view of the chest demonstrates the lungs to be symmetrically aerated without evidence of mas s, infiltrate or effusion. The cardiomediastinal contours are unremarkable. Osseous structures are intact. CONCLUSION: No acute disease. Faisal Moser MD FACR on April 14, 2017 at 14:05 Board Certified Radiologist. This report was verified electronically.
[2017-04-14] MEDS ORDERED: IOHEXOL 350 MG/ML 10 ML VIAL (for RAD DIAG) IVCONTRAST ONE (14:33)
--- NOTE | 2017-04-14 14:56 | RADRPT ---
EXAM DATE/TIME: 04/14/2017 14:26 [facility] COMPARISON: CT PULMONARY ANGIOGRAM, March 24, 2017, 17:59. INDICATIONS : Chest pain, evaluate for embolism IV CONTRAST: 90 cc Omnipaque 350 (iohexol) IV RADIATION DOSE: 22.99 CTDIvol (mGy) MEDICAL HISTORY : Hypertension. SURGICAL HISTORY : Thyroidectomy. Cholecystectomy.Appendectomy. ENCOUNTER: Initial ACUITY: 2 days PAIN SCALE: 5/10 LOCATION: chest TECHNIQUE: Volumetric scanning of the chest was performed using a pulmonary embolism protocol MIP images were re constructed. Using automated exposure control and adjustment of the mA and/or kV according to patien t size, radiation dose was kept as low as reasonably achievable to obtain optimal diagnostic quality images. DICOM format image data is available electronically for review and comparison. Follow-up recommendations for detected pulmonary nodules are based at a minimum on nodule size and pa tient risk factors according to Fleischner Society Guidelines. FINDINGS: PULMONARY ARTERIES: No filling defects are seen in the pulmonary arteries through the segmental level. LUNGS: There is no consolidation or pneumothorax . No concerning pulmonary nodule is visualized. There is d ependent atelectasis bilaterally. PLEURAE: There is no pleural thickening or pleural effusion. MEDIASTINUM: The heart is mildly enlarged. There is a stent versus calcification in the distal left anterior desce nding coronary artery. Ascending aorta is at the upper limits for normal in size measuring 4 cm. MUSCULOSKELETAL: There are mild degenerative changes of the thoracic spine. MISCELLANEOUS: The visualized upper abdominal organs demonstrate no acute abnormality. A small hiatal hernia is pres ent. CONCLUSION: 1. No PE is identified. Additionally, no acute findings identified to explain the chest pain. 2. Stable nonacute findings include mild cardiomegaly, small hiatal hernia, and ascending aorta which measures at the upper limits of normal in size. Elkin Truong MD on April 14, 2017 at 14:49 Board Certified Radiologist. This report was verified electronically.
--- NOTE | 2017-04-14 15:10 | PD ---
Physical Exam Date Seen by Provider: Apr 14, 2017 Time Seen by Provider: 14:00 Narrative I, Dr. Lal, have reviewed the advance practice practitioner's documentation and am in agreement, met with the patient face to face, made the diagnosis, and the medical decision making was done by me. *My assessment and Findings: Patient seen and evaluated with PA, please see PA note for further details. Patient is here for chest discomfort, previous history of CAD status post stenting by cardiology, and is here for further evaluation a chest pains. Initial EKG was unremarkable for any signs of acute ST-T changes. Laboratory Tests Test 04/14/17 11:20 Hemoglobin 11.4 GM/DL (11.6-15.3) Neutrophils (%) (Auto) 74.1 % (16.0-70.0) Prothrombin Time 11.8 SEC (9.8-11.6) Activated Partial Thromboplast Time 31.3 SEC (24.3-30.1) Creatinine 1.35 MG/DL (0.50-1.00) Total Protein 8.9 GM/DL (6.4-8.2) Estimat Glomerular Filtration Rate 49 ML/MIN (>89) Troponin I LESS THAN 0.02 NG/ML Last [address] Angiography 04/14/17 1108 Signed Impressions: Service Date/Time: Friday, April 14, 2017 14:26 - CONCLUSION: 1. No PE is identified. Additionally, no acute findings identified to explain the chest pain. 2. Stable nonacute findings include mild cardiomegaly, small hiatal hernia, and ascending aorta which measures at the upper limits of normal in size. Elkin Truong MD Chest X-Ray 04/14/17 1101 Signed Impressions: Service Date/Time: Friday, April 14, 2017 13:11 - CONCLUSION: No acute disease. Faisal Moser MD FACR Chest x-ray did not show any signs of acute pulmonary processes. CTA did not show any signs of PE. EKG and cardiac enzymes were unremarkable. At this point , I would be to admit the patient for further evaluation of chest pains. Data Data Last Documented VS Vital Signs Date Time Temp Pulse Resp B/P (MAP) Pulse Ox O2 Delivery O2 Flow Rate FiO2 04/14/17 13:53 74 16 115/64 (81) 98 04/14/17 11:15 2.00 04/14/17 11:15 Nasal Cannula 04/14/17 10:49 98.4 Orders Orders Electrocardiogram (04/14/17 11:01) Ckmb (Isoenzyme) Profile (04/14/17 11:01) Complete Blood Count With Diff (04/14/17 11:01) Comprehensive Metabolic Panel (04/14/17 11:01) Magnesium (Mg) (04/14/17 11:01) Prothrombin Time / Inr (Pt) (04/14/17 11:01) Act Partial Throm Time (Ptt) (04/14/17 11:01) Troponin I (04/14/17 11:01) Lipase (04/14/17 11:01) Chest, Single Ap (04/14/17 11:01) Ecg Monitoring (04/14/17 11:01) Bilateral Bp Monitoring (04/14/17 11:01) Iv Access Insert/Monitor (04/14/17 11:01) Oximetry (04/14/17 11:01) Oxygen Administration (04/14/17 11:01) Aspirin Chew (Aspirin Chew) (04/14/17 11:15) Nitroglycerin 2% Oint (Nitroglycerin 2% (04/14/17 11:15) Sodium Chloride 0.9% Flush (Ns Flush) (04/14/17 11:15) Sodium Chlorid 0.9% 500 Ml Inj (Ns 500 M (04/14/17 11:15) Morphine Inj (Morphine Inj) (04/14/17 11:15) Lorazepam Inj (Ativan Inj) (04/14/17 11:15) Ct Pulmonary Angiogram (04/14/17 11:08) CKMB (04/14/17 11:20) CKMB% (04/14/17 11:20) Vascular Access Team Consult/P PRN (04/14/17 12:42) Vascular Poc Ultrasound (04/14/17 ) Iohexol 350 Inj (Omnipaque 350 Inj) (04/14/17 14:33) Admit Order (Ed Use Only) (04/14/17 14:59) Labs Laboratory Tests Test 04/14/17 11:20 White Blood Count 10.1 TH/MM3 Red Blood Count 4.06 MIL/MM3 Hemoglobin 11.4 GM/DL Hematocrit 35.3 % Mean Corpuscular Volume 87.0 FL Mean Corpuscular Hemoglobin 28.1 PG Mean Corpuscular Hemoglobin Concent 32.2 % Red Cell Distribution Width 15.0 % Platelet Count 300 TH/MM3 Mean Platelet Volume 7.8 FL Neutrophils (%) (Auto) 74.1 % Lymphocytes (%) (Auto) 17.0 % Monocytes (%) (Auto) 7.6 % Eosinophils (%) (Auto) 0.8 % Basophils (%) (Auto) 0.5 % Neutrophils # (Auto) 7.5 TH/MM3 Lymphocytes # (Auto) 1.7 TH/MM3 Monocytes # (Auto) 0.8 TH/MM3 Eosinophils # (Auto) 0.1 TH/MM3 Basophils # (Auto) 0.0 TH/MM3 CBC Comment DIFF FINAL Differential Comment Prothrombin Time 11.8 SEC Prothromb Time International Ratio 1.2 RATIO Activated Partial Thromboplast Time 31.3 SEC Blood Urea Nitrogen 18 MG/DL Creatinine 1.35 MG/DL Random Glucose 92 MG/DL Total Protein 8.9 GM/DL Albumin 3.5 GM/DL Calcium Level 8.6 MG/DL Magnesium Level 2.1 MG/DL Alkaline Phosphatase 102 U/L Aspartate Amino Transf (AST/SGOT) 31 U/L Alanine Aminotransferase (ALT/SGPT) 28 U/L Total Bilirubin 0.3 MG/DL Sodium Level 139 MEQ/L Potassium Level 3.8 MEQ/L Chloride Level 107 MEQ/L Carbon Dioxide Level 24.7 MEQ/L Anion Gap 7 MEQ/L Estimat Glomerular Filtration Rate 49 ML/MIN Total Creatine Kinase 166 U/L Creatine Kinase MB 0.7 NG/ML Troponin I LESS THAN 0.02 NG/ML Lipase 76 U/L [facility] Medical Record Reviewed: Yes Supervised Visit with MEET: Yes Diagnosis Primary Impression: Chest pain Admitting Information Admitting Physician Requests: Admit Condition: Stable Bishop Lal MD Apr 14, 2017 15:09
--- NOTE | 2017-04-14 16:27 | HHI.HP ---
[facility] Service [facility] Primary Care Physician Unknown Admission Diagnosis Chest Pain Diagnoses: (1) Unstable angina Diagnosis: Principal (2) CAD (coronary artery disease) Diagnosis: Principal (3) Stented coronary artery Diagnosis: Principal Travel History International Travel<30 Days: No Contact w/Intl Traveler <30 Da: No Traveled to Known Affected Are: No History of Present Illness Mrs. Rondon is a 56 year old female with known CAD. 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 There she was having chest pain and an EKG done there had concerning findings which may suggest ischemia. Initial troponin shows no acute elevation to suggest STEMI. But her present situation meets criteria for unstable angina. She has known coronary artery disease. This was discovered March 25 at which time she had a stent placed. She is still having intermittent off and on chest pain. Initial cardiac enzymes are within normal limits. Pain is central in her chest and tight. No nausea or vomiting. She does not feel it matches her regular gastroesophageal reflux disease symptoms. No fevers or cough. No recent trauma. She has a strong family history of coronary artery disease with myocardial infarctions in both her mother and father and 2 sisters with known coronary artery disease. No other complaints tonight. Review of Systems Constitutional: DENIES: Fever, Chills, Night Sweats Eyes: DENIES: Blurred vision, Diplopia, Eye inflammation, Eye pain Ears, nose, mouth, throat: DENIES: Tinnitus, Hearing loss, Vertigo, Nasal discharge Respiratory: DENIES: Apneas, Cough, Wheezing, Shortness of breath Cardiovascular: COMPLAINS OF: Chest pain, DENIES: Palpitations, Syncope Gastrointestinal: DENIES: Abdominal pain, Black stools, Bloody stools Genitourinary: DENIES: Abnormal vaginal bleeding Musculoskeletal: DENIES: Joint pain, Muscle aches, Stiffness, Joint Swelling, Back pain, Neck pain Integumentary: DENIES: Abnormal pigmentation, Pruritus, Rash, Nail changes Hematologic/lymphatic: DENIES: Bruising, Lymphadenopathy Immunologic/allergic: DENIES: Eczema, Urticaria Neurologic: DENIES: Abnormal gait, Headache, Paresthesias Psychiatric: DENIES: Anxiety, Confusion, Depression Past Family Social History Past Medical History Angina CAD HTN COPD Migraine Headaches Past Surgical History Cholecystectomy Hysterectomy Thyroidectomy Reported Medications Reported Meds & Active Scripts Active Nitroglycerin SL (Nitroglycerin) 0.4 Mg Subl 0.4 Mg SL DIRECTED PRN ONE TABLET UNDER THE TONGUE NEEDED FOR CHEST PAIN, MAY REPEAT EVERY FIVE MINUTES FOR A TOTAL OF 3 DOSES OR CALL 911 IF NO RELIEF Tgt Aspirin (Aspirin) 81 Mg Chw 81 Mg PO DAILY Brilinta (Ticagrelor) 90 Mg Tab 90 Mg PO BID Potassium Chloride ER (Potassium Chloride) 20 Meq Tab 20 Meq PO BID Synthroid (Levothyroxine Sodium) 137 Mcg Tab 137 Mcg PO DAILY Topamax (Topiramate) 50 Mg Tab 50 Mg PO BID Clonidine (Clonidine HCl) 0.3 Mg Tab 0.3 Mg PO TID Hydralazine HCl 25 Mg Tablet 100 Mg PO TID Amlodipine (Amlodipine Besylate) 5 Mg Tab 5 Mg PO BID Metoprolol Tartrate 50 Mg Tab 50 Mg PO TID Losartan (Losartan Potassium) 100 Mg Tab 100 Mg PO DAILY Reported Prevacid (Lansoprazole) 30 Mg Capdr 30 Mg PO BID Lipitor (Atorvastatin Calcium) 40 Mg Tab 40 Mg PO HS Pamelor (Nortriptyline HCl) 75 Mg Cap 75 Mg PO HS Allergies: Coded Allergies: metronidazole (Verified Allergy, Severe, 04/14/17) TONGUE SWELLING penicillin G (Verified Allergy, Severe, 04/14/17) RASH sulfamethoxazole (Verified Allergy, Severe, 04/14/17) HIVES trimethoprim (Verified Allergy, Severe, 04/14/17) HIVES Active Ordered Medications Administered Medications Medications (Trade) Dose Ordered Sig/Lorraine Route PRN Reason Start Time Stop Time Status Last Admin Dose Admin Sodium Chloride (NS Flush) 2 ml UNSCH PRN IVF FLUSH AFTER USING IV ACCESS 04/14/17 11:15 04/14/17 11:20 Social History No smoking No alcohol abuse No illicit drug abuse Physical Exam Vital Signs Vital Signs Date Time Temp Pulse Resp B/P (MAP) Pulse Ox O2 Delivery O2 Flow Rate FiO2 04/14/17 16:15 98.7 75 18 121/80 (94) 100 04/14/17 13:53 74 16 115/64 (81) 98 04/14/17 11:30 86/54 (65) 04/14/17 11:30 68 1/12/18 11:15 72 20 121/69 (86) 100 2.00 04/14/17 11:15 100 Nasal Cannula 2.00 04/14/17 10:49 98.4 75 26 142/84 (103) 96 Physical Exam GENERAL: NAD, A&Ox3 HEAD: Normocephalic. NECK: Supple, trachea midline. No lymphadenopathy. EYES: No scleral icterus. No injection or drainage. CARDIOVASCULAR: Regular rate and rhythm without murmurs, gallops, or rubs. RESPIRATORY: Breath sounds equal bilaterally. No accessory muscle use. GASTROINTESTINAL: Abdomen soft, non-tender, nondistended. MUSCULOSKELETAL: No cyanosis, or edema. SKIN: Warm and dry. NEURO: No focal neurological deficitis. Laboratory Laboratory Tests Test 04/14/17 11:20 White Blood Count 10.1 Red Blood Count 4.06 Hemoglobin 11.4 Hematocrit 35.3 Mean Corpuscular Volume 87.0 Mean Corpuscular Hemoglobin 28.1 Mean Corpuscular Hemoglobin Concent 32.2 Red Cell Distribution Width 15.0 Platelet Count 300 Mean Platelet Volume 7.8 Neutrophils (%) (Auto) 74.1 Lymphocytes (%) (Auto) 17.0 Monocytes (%) (Auto) 7.6 Eosinophils (%) (Auto) 0.8 Basophils (%) (Auto) 0.5 Neutrophils # (Auto) 7.5 Lymphocytes # (Auto) 1.7 Monocytes # (Auto) 0.8 Eosinophils # (Auto) 0.1 Basophils # (Auto) 0.0 CBC Comment DIFF FINAL Differential Comment Prothrombin Time 11.8 Prothromb Time International Ratio 1.2 Activated Partial Thromboplast Time 31.3 Blood Urea Nitrogen 18 Creatinine 1.35 Random Glucose 92 Total Protein 8.9 Albumin 3.5 Calcium Level 8.6 Magnesium Level 2.1 Alkaline Phosphatase 102 Aspartate Amino Transf (AST/SGOT) 31 Alanine Aminotransferase (ALT/SGPT) 28 Total Bilirubin 0.3 Sodium Level 139 Potassium Level 3.8 Chloride Level 107 Carbon Dioxide Level 24.7 Anion Gap 7 Estimat Glomerular Filtration Rate 49 Total Creatine Kinase 166 Creatine Kinase MB 0.7 Troponin I LESS THAN 0.02 Lipase 76 Result Diagram: 04/14/17 1120 04/14/17 [address] Angiography 04/14/17 1108 Signed Impressions: Service Date/Time: Friday, April 14, 2017 14:26 - CONCLUSION: 1. No PE is identified. Additionally, no acute findings identified to explain the chest pain. 2. Stable nonacute findings include mild cardiomegaly, small hiatal hernia, and ascending aorta which measures at the upper limits of normal in size. Elkin Truong MD Chest X-Ray 04/14/17 1101 Signed Impressions: Service Date/Time: Friday, April 14, 2017 13:11 - CONCLUSION: No acute disease. Faisal Moser MD FACR Capleoneli VTE Risk Assessment Caprini VTE Risk Assessment: Mod/High Risk (score >= 2) Caprini Risk Assessment Model Point Value = 1 Point Value = 2 Point Value = 3 Point Value = 5 Age 41-60 Minor surgery BMI > 25 kg/m2 Swollen legs Varicose veins or History of unexplained or recurrent spontaneous Oral contraceptives or hormone replacement Sepsis (< 1 month) Serious lung disease, including pneumonia (< 1 month) Abnormal pulmonary function Acute myocardial infarction Congestive heart failure (< 1 month) History of inflammatory bowel disease Medical patient at bed rest Age 61-74 Arthroscopic surgery Major open surgery (> 45 min) Laparoscopic surgery (> 45 min) Malignancy Confined to bed (> 72 hours) Immobilizing plaster cast Central venous access Age >= 75 History of VTE Family history of VTE Factor V Leiden Prothrombin [id number] Lupus anticoagulant Anticardiolipin antibodies Elevated serum homocysteine Heparin-induced thrombocytopenia Other congenital or acquired thrombophilia Stroke (< 1 month) Elective arthroplasty Hip, pelvis, or leg fracture Acute spinal cord injury (< 1 month) Prophylaxis Regimen Total Risk Factor Score Risk Level Prophylaxis Regimen 0-1 Low Early ambulation 2 Moderate Order ONE of the following: *Sequential Compression Device (SCD) *Heparin 5000 units SQ BID 3-4 Higher Order ONE of the following medications: *Heparin 5000 units SQ TID *Enoxaparin/Lovenox 40 mg SQ daily (WT < 150 kg, CrCl > 30 mL/min) *Enoxaparin/Lovenox 30 mg SQ daily (WT < 150 kg, CrCl > 10-29 mL/min) *Enoxaparin/Lovenox 30 mg SQ BID (WT < 150 kg, CrCl > 30 mL/min) AND/OR *Sequential Compression Device (SCD) 5 or more Highest Order ONE of the following medications: *Heparin 5000 units SQ TID (Preferred with Epidurals) *Enoxaparin/Lovenox 40 mg SQ daily (WT < 150 kg, CrCl > 30 mL/min) *Enoxaparin/Lovenox 30 mg SQ daily (WT < 150 kg, CrCl > 10-29 mL/min) *Enoxaparin/Lovenox 30 mg SQ BID (WT < 150 kg, CrCl > 30 mL/min) AND *Sequential Compression Device (SCD) Assessment and Plan Problem List: (1) Chest pain ICD Code: R07.9 - Chest pain, unspecified Status: Acute (2) Unstable angina ICD Code: I20.0 - Unstable angina (3) CAD (coronary artery disease) ICD Code: I25.10 - Atherosclerotic heart disease of [place] coronary artery without angina pectoris (4) Stented coronary artery ICD Code: Z95.5 - Presence of coronary angioplasty implant and graft Assessment and Plan 56 year old female admitted due to unstable angina Unstable angina Coronary artery disease History of coronary stent Chest pain Evaluate for ACS Follow cardiac enzymes Aspirin daily When necessary oxygen When necessary morphine for pain. When necessary nitroglycerin Follow on telemetry Cardiology consult Hypertension Continue baseline treatment Follow blood pressures Adjust treatments as needed COPD No exacerbation Continue baseline treatments Follow clinically Migraine Headaches No exacerbation Follow clinically DVT prophylaxis Lovenox Physician Certification 2 Midnight Certification Type: Admission for Inpatient Services Order for Inpatient Services The services are ordered in accordance with Medicare regulations or non- Medicare payer requirements, as applicable. In the case of services not specified as inpatient-only, they are appropriately provided as inpatient services in accordance with the 2-midnight benchmark. Estimated LOS (days): 2 days is the estimated time the patient will need to remain in the hospital, assuming treatment plan goals are met and no additional complications. Post-Hospital Plan: Home Problem Qualifiers (1) Chest pain: Qualified Codes: R07.9 - Chest pain, unspecified Sven Kirkpatrick MD Apr 14, 2017 16:27
[2017-04-14] MEDS ORDERED: cloNIDine HCL 0.3 MG TAB PO SCH (18:00)
[2017-04-14] MEDS ORDERED: METOPROLOL TARTRATE 50 MG TAB PO SCH (18:00)
[2017-04-14] MEDS ORDERED: cloNIDine HCL 0.3 MG TAB PO PRN (18:00)
[2017-04-14] MEDS ORDERED: hydrALAZINE HCL 100 MG TAB PO SCH (18:00)
[2017-04-14] MEDS: NITROGLYCERIN 0.4 MG SL 25 TABS/BTL SL PRN ×2 (20:37→20:41)
[2017-04-14] MEDS: PANTOPRAZOLE SOD 40 MG DELAYED RELEASE TAB PO SCH (20:38)
[2017-04-14] MEDS: TICAGRELOR 90 MG TAB PO SCH (20:39)
[2017-04-14] MEDS: ATORVASTATIN 40 MG TAB PO SCH (20:39)
[2017-04-14] MEDS: MORPHINE SULFATE 2 MG/ML INJ IV PUSH PRN (20:53)
[2017-04-14] MEDS ORDERED: amLODIPine BESYLATE 5 MG TAB PO SCH (21:00)
[2017-04-15] VITALS (8 sets, daily range): BP systolic 113–146; BP diastolic 70–78; PULSE 74–92; RESP 16–18; TEMP 97.7–99.4; O2SAT 95–98
[2017-04-15] MEDS ORDERED: ONDANSETRON HCL 4 MG/2 ML VIAL IV PUSH ONE (00:30)
[2017-04-15] MEDS: SODIUM CHLORIDE 0.9% FLUSH 10 ML FLUSH IVF PRN ×3 (00:57→21:12)
[2017-04-15] MEDS: MORPHINE SULFATE 2 MG/ML INJ IV PUSH PRN ×6 (03:31→21:12)
[2017-04-15] MEDS: NITROGLYCERIN 0.4 MG SL 25 TABS/BTL SL PRN (07:15)
[2017-04-15] MEDS: PANTOPRAZOLE SOD 40 MG DELAYED RELEASE TAB PO SCH ×2 (08:30→21:11)
[2017-04-15] MEDS: ASPIRIN 81 MG CHEW TAB PO SCH (08:30)
[2017-04-15] MEDS: TICAGRELOR 90 MG TAB PO SCH ×2 (08:31→21:11)
[2017-04-15] MEDS ORDERED: LOSARTAN 50 MG TAB PO SCH (09:00)
--- NOTE | 2017-04-15 09:25 | MB ---
cc: GARRICK CISNEROS M.D. DATE OF CONSULTATION: 04/15/2017. REASON FOR CONSULTATION: Evaluation of chest pain. HISTORY OF PRESENT ILLNESS: Fara Rondon is a pleasant 56-year-old -[place] female who I saw in the office and referred to the emergency room for chest pain. The patient has multiple risk factors for coronary artery disease. She has a strong family history in addition to severe hypertension, obesity, hyperlipidemia. She was just recently evaluated right before [place] for chest pain. Her symptoms were quite atypical but her nuclear stress test showed anterior ischemia. Her catheterization showed only a single vessel lesion of which I was uncertain about severity but flow reserve was abnormal so I ended up stenting it and this was March 25, 2017. She continued to have chest pain. The chest pain is mainly sharp in the left chest. She is also tired, anxious, short of breath, it hurts a little bit her to swallow, at times the pain has a pulsating quality. She has tingling in her hands and feet. She has some signs of sleep apnea with snoring. Apparently she has seen at least one doctor who told her she had sleep apnea, but has also had a sleep study suggesting the opposite, and I do not have the results of any of that evaluation. When I saw her in the hospital, she was tearful, anxious and complaining of severe pain. She still has sharp pain in her chest. Her troponins have been negative. I do not see any ischemia on her EKG. She has been compliant with her medications. MEDICATIONS: Her medications include: 1. Aspirin 81 milligrams daily. 2. Brilinta 90 milligrams twice a day. 3. Metoprolol 50 milligrams q. 8 hours. 4. Amlodipine 5 milligrams daily. 5. Losartan 100 milligrams daily. 6. Hydralazine 100 milligrams three times a day. 7. Clonidine 0.3 three times a day. 8. Pamelor. 9. Potassium 10 milliequivalents twice a day. 10. Prevacid. 11. Synthroid. 12. Topamax. PAST MEDICAL HISTORY: Her past medical history includes: 1. Hypothyroidism. 2. Gastroesophageal reflux disease. 3. Hypertension. 4. Hyperlipidemia. 5. Coronary artery disease. 6. Morbid obesity. 7. Temporal arteritis in 2013. PAST SURGICAL HISTORY: 1. Cholecystectomy. 2. Hysterectomy. 3. Left anterior descending stent. 4. Thyroidectomy. ALLERGIES: 1. METRONIDAZOLE. 2. PENICILLIN. 3. SULFAMETHOXAZOLE. 4. TRIMETHOPRIM. FAMILY HISTORY: Family history is positive for heart disease. She has two sisters and her father from congestive heart failure. Her mother had coronary artery disease. SOCIAL HISTORY: She has never smoked. She does some exercise. REVIEW OF SYSTEMS: Her review of systems otherwise noncontributory. PHYSICAL EXAMINATION: GENERAL: Physical exam reveals an obese pleasant -[place] female. She is very anxious. VITAL SIGNS: Charted. HEAD, EYES, EARS, NOSE, THROAT: Exam is unremarkable. NECK: No JVD or bruits. CHEST: Clear to auscultation. BREASTS: She has marked left costochondral tenderness. CARDIAC: Exam shows S1-S2 normal, regular rate and rhythm. No murmurs, gallops. ABDOMEN: Abdomen soft and nontender. EXTREMITIES: No cyanosis, clubbing or edema. Peripheral pulses are intact. EKGS: EKG does not show any ischemic changes. LABORATORY DATA: Troponin is negative. IMPRESSION: Perplexing chest pain in this 56-year-old -[place] female. She does have known coronary disease. Her symptoms do not sound typical of angina but it is of concern since it is has been only a short while since her last stent. RECOMMENDATIONS: Checking an VENICE, sedimentation rate and rheumatoid factor in case there is a rheumatologic component to her symptoms. She definitely has some costochondritis. I would think the only way to be comfortable here would be to proceed with coronary angiography. Her obesity makes getting an accurate nuclear test problematic. I am on emergency room call today so I would prefer to postpone this until tomorrow, and she is okay with that. Will keep her NPO after midnight and probably do this tomorrow some time. MD OMAR Velazquez/SATHYA /8:33 AM 8:50 AM
[2017-04-15] MEDS: LOSARTAN 50 MG TAB PO SCH (09:53)
[2017-04-15] MEDS: amLODIPine BESYLATE 5 MG TAB PO SCH (09:54)
[2017-04-15] MEDS ORDERED: IOHEXOL 350 MG/ML 100 ML BTL (for Cath Lab) OTHER ONE (12:54)
[2017-04-15] MEDS: METOPROLOL TARTRATE 50 MG TAB PO SCH ×2 (13:06→21:11)
[2017-04-15 15:14] LABS: RHEUMATOID FACTOR SCREEN NEGATIVE (NEGATIVE)
--- NOTE | 2017-04-15 16:17 | EKG ---
Date Performed: 04/14/2017 Time Performed: 11:08:26 PTAGE: 56 years EKG: Sinus rhythm WITH FIRST DEGREE AV BLOCK POSSIBLE LEFT ATRIAL ENLARGEMENT Nonspecific ST-T wave abnormality unchan ged from the prior tracing ABNORMAL ECG PREVIOUS TRACING : 03/26/2017 06.04 DOCTOR: Jasper Dixon Interpretating Date/Time 04/15/2017 16:16:01
--- NOTE | 2017-04-15 19:26 | HHI.PR ---
Subjective Remarks Cardiac enzymes are within normal limits. No acute changes on EKG to suggest infarction. Chest pain symptoms are still present. Plan for heart catheter tomorrow. Objective Vital Signs Date Time Temp Pulse Resp B/P (MAP) Pulse Ox O2 Delivery O2 Flow Rate FiO2 04/15/17 16:00 98.5 74 18 133/78 (96) 98 04/15/17 16:00 76 04/15/17 12:00 97.7 86 18 120/76 (91) 96 04/15/17 12:00 85 04/15/17 08:00 82 04/15/17 08:00 98.4 81 18 113/70 (84) 98 04/15/17 07:31 Room Air 04/15/17 04:00 98.4 90 16 129/78 (95) 95 04/15/17 04:00 87 04/15/17 03:31 Room Air 04/15/17 00:00 98.0 91 16 131/76 (94) 97 04/15/17 00:00 81 04/14/17 20:10 Room Air 2.00 04/14/17 20:00 98.7 82 16 131/77 (95) 98 I/O 04/14/17 04/14/17 04/14/17 04/15/17 04/15/17 04/15/17 07:00 15:00 23:00 07:00 15:00 23:00 Intake Total 480 ml Output Total 600 ml Balance -120 ml Intake Oral 480 ml Output Urine Total 600 ml # Voids 1 # Bowel Movements 0 Result Diagram: 04/14/17 1120 04/14/17 1120 Objective Remarks GENERAL: NAD, A&Ox3 HEAD: Normocephalic. NECK: Supple, trachea midline. No lymphadenopathy. EYES: No scleral icterus. No injection or drainage. CARDIOVASCULAR: Regular rate and rhythm without murmurs, gallops, or rubs. RESPIRATORY: Breath sounds equal bilaterally. No accessory muscle use. GASTROINTESTINAL: Abdomen soft, non-tender, nondistended. MUSCULOSKELETAL: No cyanosis, or edema. SKIN: Warm and dry. NEURO: No focal neurological deficitis. A/P Problem List: (1) Unstable angina ICD Code: I20.0 - Unstable angina (2) Chest pain ICD Code: R07.9 - Chest pain, unspecified Status: Acute (3) CAD (coronary artery disease) ICD Code: I25.10 - Atherosclerotic heart disease of [place] coronary artery without angina pectoris (4) Stented coronary artery ICD Code: Z95.5 - Presence of coronary angioplasty implant and graft Assessment and Plan 56 year old female admitted due to unstable angina. Plan is for heart catheterization tomorrow. Workup has been expanded with autoimmune evaluation per cardiology. VENICE and ESR are pending. A CRP and rheumatoid factor admitted to this. Unstable angina Coronary artery disease History of coronary stent Chest pain Negative workup for ACS Negative serial cardiac enzymes Aspirin daily When necessary oxygen When necessary morphine for pain. When necessary nitroglycerin Follow on telemetry Cardiology following Plan for heart catheter tomorrow Hypertension Continue baseline treatment Follow blood pressures Adjust treatments as needed COPD No exacerbation Continue baseline treatments Follow clinically Migraine Headaches No exacerbation Follow clinically DVT prophylaxis Lovenox Problem Qualifiers (1) Chest pain: Qualified Codes: R07.9 - Chest pain, unspecified Sven Kirkpatrick MD Apr 15, 2017 19:26
[2017-04-15] MEDS: ATORVASTATIN 40 MG TAB PO SCH (21:11)
[2017-04-16] VITALS (9 sets, daily range): BP systolic 136–154; BP diastolic 77–91; PULSE 70–91; RESP 17–18; TEMP 97.9–98.6; O2SAT 97–99
[2017-04-16] MEDS: MORPHINE SULFATE 2 MG/ML INJ IV PUSH PRN ×6 (00:44→21:14)
[2017-04-16] MEDS: SODIUM CHLORIDE 0.9% FLUSH 10 ML FLUSH IVF PRN ×2 (00:44→04:11)
[2017-04-16] MEDS: METOPROLOL TARTRATE 50 MG TAB PO SCH ×3 (06:26→21:13)
[2017-04-16] MEDS: amLODIPine BESYLATE 5 MG TAB PO SCH (07:57)
[2017-04-16] MEDS: TICAGRELOR 90 MG TAB PO SCH ×2 (07:58→21:13)
[2017-04-16] MEDS: ASPIRIN 81 MG CHEW TAB PO SCH (07:58)
[2017-04-16] MEDS: PANTOPRAZOLE SOD 40 MG DELAYED RELEASE TAB PO SCH ×2 (07:58→21:13)
[2017-04-16] MEDS: LOSARTAN 50 MG TAB PO SCH (07:58)
[2017-04-16 08:36] LABS: RHEUMATOID FACTOR SCREEN NEGATIVE (NEGATIVE)
[2017-04-16 08:38] LABS: C-REACTIVE PROTEIN 2.43 MG/DL (0.00-0.30); TROPONIN I 0.02 NG/ML (0.02-0.05)
[2017-04-16] MEDS ORDERED: ASPIRIN 325 MG TAB PO SCH (09:00)
[2017-04-16] MEDS ORDERED: DIAZEPAM 10 MG TAB PO STA (11:44)
[2017-04-16] MEDS ORDERED: SODIUM CHLOR 0.9% 1000 ML INJ 1,000 ML IV SCH (11:44)
[2017-04-16] MEDS ORDERED: diphenhydrAMINE HCL 50 MG CAP PO STA (11:44)
--- NOTE | 2017-04-16 11:49 | PD.CARD.PN ---
Subjective Subjective Remarks Chest pain not resolved. Requesting cath. Objective Medications Current Medications Medications (Trade) Dose Ordered Sig/Lorraine Route Start Time Stop Time Status Last Admin (NS Flush) 2 ml UNSCH PRN IVF 04/14/17 11:15 04/16/17 04:11 (Aspirin Chew) 81 mg DAILY PO 04/15/17 09:00 04/16/17 07:58 (Lipitor) 40 mg HS PO 04/14/17 21:00 04/15/17 21:11 (Brilinta) 90 mg BID PO 04/14/17 21:00 04/16/17 07:58 (Protonix) 40 mg BID PO 04/14/17 21:00 04/16/17 07:58 (Catapres) 0.3 mg TID PRN PO 04/14/17 18:00 (Nitrostat Sl) 0.4 mg Q5M PRN SL 04/14/17 18:15 04/15/17 07:15 (Morphine Inj) 2 mg Q3H PRN IV PUSH 04/14/17 20:45 04/16/17 07:59 (Norvasc) 5 mg DAILY PO 04/15/17 09:00 04/16/17 07:57 (Lopressor) 50 mg Q8HR PO 04/15/17 14:00 04/16/17 06:26 (Cozaar) 100 mg DAILY PO 04/15/17 09:00 04/16/17 07:58 Vital Signs / I&O Vital Signs Date Time Temp Pulse Resp B/P (MAP) Pulse Ox O2 Delivery O2 Flow Rate FiO2 04/16/17 08:00 98.6 70 18 154/77 (102) 99 04/16/17 04:00 98.3 73 17 140/81 (100) 98 04/16/17 04:00 Room Air 04/16/17 03:49 78 04/16/17 00:00 Room Air 04/16/17 00:00 98.3 78 17 136/80 (98) 97 04/15/17 23:40 79 04/15/17 20:00 Nasal Cannula 2.00 04/15/17 20:00 99.4 92 18 146/77 (100) 98 04/15/17 19:42 90 04/15/17 16:00 98.5 74 18 133/78 (96) 98 04/15/17 16:00 76 04/15/17 12:00 97.7 86 18 120/76 (91) 96 04/15/17 12:00 85 I/O 04/15/17 04/15/17 04/15/17 04/16/17 04/16/17 04/16/17 07:00 15:00 23:00 07:00 15:00 23:00 Intake Total 480 ml 480 ml 780 ml Output Total 600 ml Balance -120 ml 480 ml 780 ml Intake Oral 480 ml 480 ml 780 ml Output Urine Total 600 ml # Voids 1 4 3 # Bowel Movements 0 2 Physical Exam GENERAL: Well developed, obese. No acute distress. HEENT: Jugular venous pressure is normal. CHEST: Lungs clear to auscultation bilaterally. Unlabored respiratory effort. Left costochondral tenderness. CARDIAC: Regular rate and rhythm without S3, S4, or murmur. ABDOMEN: Soft, nontender, no hepatosplenomegaly. Bowel sounds present. EXTREMITIES: No clubbing, cyanosis, or edema. Laboratory Laboratory Tests Test 04/15/17 14:20 04/16/17 07:15 Erythrocyte Sedimentation Rate 49 mm/hr Rheumatoid Factor Screen NEGATIVE NEGATIVE Rheumatoid Factor Titer IU/ML IU/ML Troponin I 0.02 NG/ML C-Reactive Protein 2.43 MG/DL Assessment and Plan Problem List: (1) Unstable angina ICD Codes: I20.0 - Unstable angina (2) CAD (coronary artery disease) ICD Codes: I25.10 - Atherosclerotic heart disease of [place] coronary artery without angina pectoris (3) Hypertension ICD Codes: I10 - Essential (primary) hypertension (4) Chest pain ICD Codes: R07.9 - Chest pain, unspecified Status: Acute (5) Hyperlipidemia ICD Codes: E78.5 - Hyperlipidemia, unspecified Assessment and Plan Informed consent for cardiac cath. Problem Qualifiers (1) Chest pain: Qualified Codes: R07.9 - Chest pain, unspecified Jasper Dixon MD Apr 16, 2017 11:49
[2017-04-16] MEDS ORDERED: HEPARIN-NS/PF INJ 1,000 ML ONE (12:59)
[2017-04-16] MEDS ORDERED: MIDAZOLAM HCL 2 MG/2 ML VIAL ONE ×2 (13:00→13:31)
[2017-04-16] MEDS ORDERED: HEPARIN SODIUM - IV 10,000 UNITS/10 ML VIAL ONE (13:00)
[2017-04-16] MEDS ORDERED: NITROGLYCERIN INJ 5 ML ONE (13:00)
[2017-04-16] MEDS ORDERED: VERAPAMIL HCL 5 MG/2 ML VIAL ONE (13:07)
--- NOTE | 2017-04-16 14:13 | CATHPROC ---
1000memories HIS Report Study Information Study Number Admission Scheduled Start Study Start [id number] Apr 14 2017 4:23PM 04/16/2017 Apr 16 2017 12:24PM [facility] Service Cardiac Catheterization Admit Source Facility Department Emergency department [facility] - [employer] Mechanic Physician and Clinical Staff Initial Jasper Cooley Barrel Assembler Helper Yissel Hunter,CROIE/JAMESON Barrel Assembler Helper Alecia Bedolla,RN Recorder Marty Kaur,RT(R) Scrub Cecil, Jessica,PHOTOGRAPHIC AIDE TECH2 Procedures Performed Procedure Location (Site) Vessel Name Coronary Angiograms LCA Left Coronary Coronary Angiograms RCA Right Coronary L Heart Cath LV Gram-hand inj. LV LV Ventricle Wire insertion Radial (right) Radial Art. Equipment Time Manager Asset Description Size Mfg Part Number Used/Scraped TRANSDUCER, TRUWAVE [id number] 12:32 SOTELO CORRAL * Used W/STOCKCOCK *[id number] *[id number] *[id number] 12:32 MALLINCKRODT SYRINGE, ANGIOMAT 150ML 150ML *[id number] Used 2SUB [id number] 12:32 Zervant PACK, CCL CUSTOM * Used *[id number] 12:32 [employer]ervant SUPPORT, ARTERIAL ADULT 97628 *[id number] Used [id number] 12:32 [employer] PACER PEN, SKIN DUAL W/ RULER * Used *[id number] BAND, RADIAL COMPRESSION TR [id number] 13:57 EQAL MEDICAL 24CM Used SHORT 24 *[id number] 12:32 Standout [employer] WIRE, EXCHANGE 260CM 3MMJ 260CM Used *[id number] 12:32 NAMIC MANIFOLD, 4 PORT * Used *[id number] 12:32 NYCOMED OMNIPAQUE, 350 MG, 100ML 100ML [id number] Used [id number] 12:32 Quinyx AB BLANKET,WARM AIR CCL * Used *[id number] 12:32 [employer]x AB JELCO NEEDLE 4056 *[id number] Used SHEATH, FR6 TRANSRADIAL RM*[id number] 12:32 TERContix MEDICAL FR 6 Used SLENDER 10CM *[id number] History: Current Medications Medication Dosage/Unit Route Frequency Last Date/Time Taken LIPITOR Prevacid Synthroid LOPRESSOR CLONIDINE BRILLINTA ASA NTG SL History: Allergies Allergy Reaction sulfamethoxazole trimethoprim metronidazole penicillin G History: Risk Factors Family History of Hypertension Dyslipidemia Previous MD Previous Heart Failure Premature CAD Yes Yes Yes No No Prior Valve Prior PCI Prior PCIDate Prior CABG Surgery No Yes 03/25/2017 No Cerebrovascular Peripheral Artery Chronic Lung On Dialysis Diabetes Disease Disease Disease No No No Yes No History: Risk Factors Selection Items Obesity Previous Cardiovascular Treatment Prev Perc Coronary Intervention Hypercholesterolemia drug Tx History: Symptoms/Diagnosis Selection Items Chest pain History: CV Disease Selection Items Known CAD History: Stress Tests Stress or Imaging Studies Performed Yes Standard Exercise Stress Test No Stress Echo No Stress Test SPECT Stress Test SPECT Result Stress Test SPECT Ischemia Risk/Extent Yes Positive Intermediate Stress Test CMR No Cardiac CTA Coronary Calcium Score No No History: Other Disease Selection Items CAD COPD HTN History: Other Current Smoker No Labs Hgb (g/dl) Hct (%) RBC (MIL/MM3) WBC (l/cumm) Platelets (thousands) 11.60-17.00 35.00-51.00 4.00-5.90 4.00-11.00 150.00-450.00 11.4 35.3 4 10.1 300 Glucose (mg/dl) BUN (mg/dl) Creatinine (mg/dl) BUN:Creatinine (1:x) 74.00-106.00 7.00-18.00 0.50-1.30 10.00-20.00 92 18 1.3 13.8 Na (meq/l) K (meq/l) Cl (meq/l) CO2 (mmol/L) Ca (mg/dl) 136.00-145.00 3.50-5.10 98.00-107.00 21.00-32.00 8.50-10.10 139 3.8 107 24.7 8.6 PT (sec) PTT (sec) 9.80-11.60 24.30-30.10 11.8 31.3 Troponin I (ng/ml) CPK-MB (ng/ML) 0.02-0.05 0.50-3.60 0.02 Not Drawn Medication Medication Total Dose (Bolus/Oral) Medication Total Dosage/Unit 1% XYLOCAINE 5 mL FENTANYL 100 mcg RADIAL COCKTAIL 5 mL (Bolus) VERSED 3 mg Medications (Bolus/Oral) Medication Time Given Dosage/Unit Administered By Reason VERSED 04/16/2017 1:35:13 PM 2 mg Alecia Bedolla 2 mg VERSED given in lab by Alecia Bedolla RN via Peripheral IV. FENTANYL 04/16/2017 1:39:51 PM 50 mcg Alecia Bedolla 50 mcg FENTANYL given in lab by Alecia Bedolla RN in Left Forearm via Peripheral IV. 1% XYLOCAINE 04/16/2017 1:40:52 PM 5 mL Jasper Dixon 5 mL 1% XYLOCAINE given in lab by Jasper Dixon in Right Radial via Subcutaneous. Ntg 200mcg Verapamil 2.5mg Heparin RADIAL COCKTAIL 04/16/2017 1:42:54 PM 5 mL (Bolus) Jasper Dixon 2500U 5 mL (Bolus) RADIAL COCKTAIL given in lab by Jasper Dixon in Right Radial via Radial. Using [Solutio n Name]. Reason: Ntg 200mcg Verapamil 2.5mg Heparin 2500U. FENTANYL 04/16/2017 1:43:10 PM 50 mcg Alecia Bedolla 50 mcg FENTANYL given in lab by Alecia Bedolla RN in Left Forearm via Peripheral IV. VERSED 04/16/2017 1:43:19 PM 1 mg Alecia Bedolla 1 mg VERSED given in lab by Alecia Bedolla RN in Left Forearm via Peripheral IV. Medication (Drip) Medication Time Given Dosage/Unit Concentration/Unit Diluent (ml) Solution IV Solutions 04/16/2017 1:03:31 PM 0 mL (IV) 500 NaCl .9 IV Solutions given in lab by Alecia Bedolla RN in Left Forearm via Peripheral IV. Pump/Drip Flow = 20 ml/hr using NaCl .9. Initial Case Assessment Cardiovascular HR Rhythm NIBP Chest Pain 76 Sinus 158/107 7 Edema Present Skin color Skin None Normal Warm Dry Circulatory - Right Pulses Dorsalis Pedis Femoral Radial 2 2 2 Scale (0,1,2,3,4,d) Scale (0,1,2,3,4,d) Neurological State Oriented to time-place- Alert Moves all extremities person Respiration - General Respiration Rate SpO2 (%) O2 (lpm) (B/min) 13 98 0 Final Case Assessment Cardiovascular HR Rhythm NIBP Chest Pain 77 Sinus 147/90 6 Edema Present Skin color Skin None Normal Warm Dry Circulatory - Right Pulses Dorsalis Pedis Femoral Radial 2 2 2 Scale (0,1,2,3,4,d) Scale (0,1,2,3,4,d) Neurological State Oriented to time-place- Alert Moves all extremities person Respiration - General Respiration Rate SpO2 (%) O2 (lpm) (B/min) 22 100 0 Chronological Log Time Study Chronological Log 12:54:41 Patient arrived via Bed. 12:54:42 Patient Name, D.O.B, / Armband Verified By R.N. 12:54:44 Consent signed by the physician and the patient and verified by the [employer] staff. 12:54:45 Pre-op and post- op instructions given; patient acknowledges understanding of instructions. 12:54:46 Verbal Stimulation=2 Physical Stimulation=2 Airway=2 Respiration=2 TOTAL=8. (0=absent, 1=li mited, 2=present) 12:55:07 Presedation assessment performed by [employer]ic RN. 12:55:15 Allens test performed on the right radial and ulnar artery. 12:55:24 Patient has been NPO for More than 6Hrs. 12:55:25 Skin Breakdown- none per patient. 12:55:36 Patient Warmer Placed on the Table. 12:55:38 Luciano Prominences Protected 12:55:40 A # 20 IV was noted in the Hand (right). Grade = 0 12:55:55 History and physical on the chart or being dictated. Assessment: Initial Case, HR=76 BPM, Rhythm=Sinus, NQXZ=801/107 mmhg, Chest Pain=7, Edema=None, Color=Normal, Skin = Warm, Dry 12:55:56 Right Pulses: Raymond Ped=2, Femoral=2, Radial=2 Neurological: State=Alert, Ox3, GUTIERREZ Respiration: Resp=13 B/min, SpO2=98 %, O2=0 lpm Vitals capture started with the following parameters, Patient=Adult, Interval=5 min, Initial Pr ldfpep=808 mmHg, 13:02:19 Deflation Rate=5 mmHg, Cuff placed on Left Arm 13:02:35 Reference ECG taken 13:02:59 A # 20 IV was noted in the Antecubital (right). Grade = 0 13:03:01 HR=78 bpm, JWOQ=228/107 mmhg, SpO2=97.0 %, Resp=16 B/min, Pain=7, Conor=10, Hernandez=2 13:03:11 A # 20 IV was noted in the Forearm (left). Grade = 0 IV Solutions given in lab by Alecia Bedolla, RN in Left Forearm via Peripheral IV. Pump/Drip F low = 20 ml/hr using 13:03:31 NaCl .9. 13:08:02 HR=76 bpm, DLTO=481/103 mmhg, SpO2=99.0 %, Resp=20 B/min, Pain=7, Conor=10, Hernandez=2 13:13:00 Bilateral groins prepped with 2% chlorhexidine, and draped after a 3 minute waiting time. 13:13:03 HR=75 bpm, MXGR=067/100 mmhg, SpO2=99.0 %, Resp=19 B/min, Pain=7, Conor=10, Hernandez=2 13:14:51 MD paged 13:17:19 Pressure channel 1 zeroed. 13:18:02 HR=80 bpm, PLVY=011/96 mmhg, MqC8=895.0 %, Resp=20 B/min, Pain=7, Conor=10, Hernandez=2 13:23:03 HR=76 bpm, YQCN=121/95 mmhg, AdD1=418.0 %, Resp=23 B/min, Pain=7, Conor=10, Ehrnandez=2 13:28:04 HR=81 bpm, GXIL=991/97 mmhg, YsR5=529.0 %, Resp=21 B/min, Pain=7, Conor=10, Hernandez=2 13:29:45 MD arrived. 13:33:03 HR=83 bpm, FJON=330/98 mmhg, SpO2=98.0 %, Resp=21 B/min, Pain=7, Conor=10, Hernandez=2 13:35:13 2 mg VERSED given in lab by Alecia Bedolla, RN via Peripheral IV. 13:38:02 HR=84 bpm, MMGQ=508/103 mmhg, SpO2=99.0 %, Resp=20 B/min, Pain=7, Conor=10, Hernandez=2 Time Out. Correct patient, correct procedure, correct physician, power injector not loaded with contrast with surgical 13:38:46 team present. Time Out Concurred by MD and individual staff in procedure. 13:39:36 Case Start 13:39:51 50 mcg FENTANYL given in lab by Alecia Bedolla RN in Left Forearm via Peripheral IV. 13:40:52 5 mL 1% XYLOCAINE given in lab by Jasper Dixon in Right Radial via Subcutaneous. 13:42:29 Access site was Radial Artery. A SHEATH, FR6 TRANSRADIAL SLENDER 10CM FR 6 was advanced into the Radial (right) using the Perc utaneous 13:42:37 technique. 5 mL (Bolus) RADIAL COCKTAIL given in lab by Jasper Dixon in Right Radial via Radial. Using [S olution Name]. 13:42:54 Reason: Ntg 200mcg Verapamil 2.5mg Heparin 2500U. 13:43:03 HR=79 bpm, POLU=104/97 mmhg, VuG5=692.0 %, Resp=20 B/min, Pain=7, Conor=10, Hernandez=2 13:43:10 50 mcg FENTANYL given in lab by Alecia Bedolla RN in Left Forearm via Peripheral IV. 13:43:19 1 mg VERSED given in lab by Alecia Bedolla RN in Left Forearm via Peripheral IV. A JL 3.5 INFINITI CATHETER FR 6 was advanced over a wire. OMNIPAQUE, 350 MG, 100ML 100ML was us ed for 13:44:13 injections. Recorded Pressure: Ao, HR=86, Condition=Condition 1 13:45:57 (Aorta) Ao 119/86/101 13:46:24 The LCA was injected and visualized at various angles. OMNIPAQUE, 350 MG, 100ML 100ML used . 13:48:04 HR=83 bpm, TAVL=761/91 mmhg, DeK5=271.0 %, Resp=19 B/min, Pain=7, Conor=10, Hernandez=2 After removing the current catheter a JR 5.0 INFINITI CATHETER FR 6 was advanced over a WIRE, E XCHANGE 260CM 13:50:25 3MMJ 260CM. Recorded Pressure: LV, HR=80, Condition=Condition 1 13:52:14 (Left Ventricle) LV 129/5/15 13:53:03 HR=75 bpm, WVNG=398/87 mmhg, SpO2=98.0 %, Resp=18 B/min 13:53:07 The LV was manually injected with 8 cc's and visualized. OMNIPAQUE, 350 MG, 100ML 100ML use d. Recorded Pressure: LV, Ao, HR=79, Condition=Condition 1 13:53:41 (Left Ventricle) LV 139/3/133, (Aorta) Ao 132/84/106 13:56:58 The RCA was injected and visualized at various angles. OMNIPAQUE, 350 MG, 100ML 100ML used . 13:57:44 A WIRE, EXCHANGE 260CM 3MMJ 260CM was inserted via Radial (right). 13:57:55 Catheter was removed 13:57:57 Wire removed 13:58:01 Case End 13:58:04 HR=79 bpm, UFRJ=975/90 mmhg, SpO2=99.0 %, Resp=22 B/min, Pain=7, Conor=10, Hernandez=2 Assessment: Final Case, HR=77 BPM, Rhythm=Sinus, AYYK=293/90 mmhg, Chest Pain=6, Edema=None, Color=Normal, Skin = Warm, Dry 13:59:35 Right Pulses: Raymond Ped=2, Femoral=2, Radial=2 Neurological: State=Alert, Ox3, GUTIERREZ Respiration: Resp=22 B/min, PkR0=301 %, O2=0 lpm Radial Compression Device Used. 11 mLs of air placed in BAND, RADIAL COMPRESSION TR SHORT 24 24 CM. Affected 14:00:59 hand 100 % O2 saturation. 14:01:37 No case complications noted. 14:01:44 Cine recording checked. 14:01:49 Bedside Report will be given. 14:03:05 HR=74 bpm, FHPP=297/89 mmhg, SpO2=99.0 %, Resp=19 B/min, Pain=7, Conor=10, Hernandez=2 14:05:20 A Left Heart Cath was performed. 14:07:36 Vitals capture stopped. 14:11:[facility] - Contrast Media Used In Study Contrast Total Opened (mL) Total Used (mL) Total Wasted (mL) Omnipaque 150 95 55 End Study - Maximum Contrast Load Max Contrast Load (mL) 420.8 End Study - Radiation Exposure Fluoro Time (minutes) 5.6 End Study - Patient Disposition Complications Transferred To Interventional Outcome No Telemetry Bed No attempt made
[2017-04-16] MEDS ORDERED: ONDANSETRON HCL 4 MG/2 ML VIAL IVP PRN (14:15)
[2017-04-16] MEDS ORDERED: MISC INFORMATION XX ONE (14:15)
[2017-04-16] MEDS ORDERED: SODIUM CHLORIDE 0.9% FLUSH 10 ML FLUSH IV FLUSH PRN (14:15)
--- NOTE | 2017-04-16 14:41 | MA ---
cc: GARRICK CISNEROS M.D. DATE: 04/16/2017 BRIEF HISTORY Fara Rondon is a 56-year-old obese -[place] female who had unstable angina last month and had stenting of her mid LAD with a 3.0 x 22 mm Resolute stent, post dilated to 3.5 millimeter. IVUS was used to make sure there was good stent apposition. She comes in now with chest pain. The chest pain is severe. She has costochondral tenderness. Cardiac catheterization was necessary to rule out ischemic etiology. DESCRIPTION OF PROCEDURE The patient was brought to the Cardiac Catheterization Laboratory in a fasting state. She received 10 milligrams of Valium prior. She received 3 milligrams of IV Versed and 100 micrograms of IV fentanyl per case and was still awake and nervous. We decided to go ahead. Using 1% lidocaine for local anesthesia the right radial artery was punctured on the first attempt. Terumo slender sheath was inserted. Left coronary angiography was completed using a 6-[place]imbabwean left 3.5 Henri catheter. Right coronary angiography was completed using a 6-[place]imbabwean right 4 Henri catheter. The same catheter was used to measure left ventricular pressure followed by left ventriculography and then a pullback. At the end of the procedure, the catheter was removed over wire and the sheath was removed with a Terumo band placed. There were no complications. FINDINGS HEMODYNAMICS. The ventricular pressure is 139/3 with an end diastolic pressure of 16. Aortic pressure is 132/84 with a mean of 106. There was no gradient on pullback of the left ventricle to the aorta. LEFT VENTRICULOGRAPHY Left ventriculography shows symmetrically bernie left ventricle with an estimated ejection fraction 60%. There is no wall motion abnormalities. CORONARY ANGIOGRAPHY Coronary arteries are somewhat cavernous. The left main coronary artery appears normal. Left anterior descending artery has irregularities only. The stent of the LAD is widely patent with no stenosis. The diagonal branch has only 5% irregularities. The circumflex artery is a very large vessel, about 30% proximal and mid disease. The right coronary artery is a dominant vessel with about 10% irregularities. CONCLUSION Normal hemodynamics. Normal ventricular function and only mild nonobstructive disease with a widely patent mid LAD stent. RECOMMENDATIONS I think her primary problem is costochondritis, unable to use NSAIDs at this point because she is on dual antiplatelet therapy for a stent. She might benefit from pain management. She might be able to be treated with a Medrol Dosepak for short-term relief. MD OMAR Velazquez/KACY /2:06 PM /2:24 PM
--- NOTE | 2017-04-16 15:43 | HHI.PR ---
Subjective Remarks Patient still c/o chest pain. Pain is 6/10 and reproducible by palpation. Denies cough. Denies abdominal pain, nausea or vomiting Objective Vitals Vital Signs Date Time Temp Pulse Resp B/P (MAP) Pulse Ox O2 Delivery O2 Flow Rate FiO2 04/16/17 12:00 98.3 72 18 142/82 (102) 97 04/16/17 08:00 98.6 70 18 154/77 (102) 99 04/16/17 04:00 98.3 73 17 140/81 (100) 98 04/16/17 04:00 Room Air 04/16/17 03:49 78 04/16/17 00:00 Room Air 04/16/17 00:00 98.3 78 17 136/80 (98) 97 04/15/17 23:40 79 04/15/17 20:00 Nasal Cannula 2.00 04/15/17 20:00 99.4 92 18 146/77 (100) 98 04/15/17 19:42 90 04/15/17 16:00 98.5 74 18 133/78 (96) 98 04/15/17 16:00 76 I/O 04/15/17 04/15/17 04/15/17 04/16/17 04/16/17 04/16/17 07:00 15:00 23:00 07:00 15:00 23:00 Intake Total 480 ml 480 ml 780 ml Output Total 600 ml Balance -120 ml 480 ml 780 ml Intake Oral 480 ml 480 ml 780 ml Output Urine Total 600 ml # Voids 1 4 3 # Bowel Movements 0 2 Result Diagram: 04/14/17 1120 04/14/[address] Angiography 04/14/17 1108 Signed Impressions: Service Date/Time: Friday, April 14, 2017 14:26 - CONCLUSION: 1. No PE is identified. Additionally, no acute findings identified to explain the chest pain. 2. Stable nonacute findings include mild cardiomegaly, small hiatal hernia, and ascending aorta which measures at the upper limits of normal in size. Elkin Truong MD Chest X-Ray 04/14/17 1101 Signed Impressions: Service Date/Time: Friday, April 14, 2017 13:11 - CONCLUSION: No acute disease. Faisal Moser MD FACR Objective Remarks AAOx3 NAD Clear lungs BL S1S2 RRR, no MRG no edema in lowr extremities, no calf pain Abdomen obese, soft, nt, nd Medications and IVs Current Medications Medications (Trade) Dose Ordered Sig/Lorraine Route Start Time Stop Time Status Last Admin (Aspirin Chew) 81 mg DAILY PO 04/15/17 09:00 04/16/17 07:58 (Lipitor) 40 mg HS PO 04/14/17 21:00 04/15/17 21:11 (Brilinta) 90 mg BID PO 04/14/17 21:00 04/16/17 07:58 (Protonix) 40 mg BID PO 04/14/17 21:00 04/16/17 07:58 (Catapres) 0.3 mg TID PRN PO 04/14/17 18:00 (Nitrostat Sl) 0.4 mg Q5M PRN SL 04/14/17 18:15 04/15/17 07:15 (Morphine Inj) 2 mg Q3H PRN IV PUSH 04/14/17 20:45 04/16/17 12:15 (Norvasc) 5 mg DAILY PO 04/15/17 09:00 04/16/17 07:57 (Lopressor) 50 mg Q8HR PO 04/15/17 14:00 04/16/17 06:26 (Cozaar) 100 mg DAILY PO 04/15/17 09:00 04/16/17 07:58 (NS Flush) 2 ml BID IV FLUSH 04/16/17 21:00 (NS Flush) 2 ml UNSCH PRN IV FLUSH 04/16/17 14:15 Sodium Chloride 1,000 ml @ 100 mls/hr Q10H IV 04/16/17 14:12 04/17/17 02:11 (Zofran Inj) 4 mg Q6H PRN IVP 04/16/17 14:15 A/P Problem List: (1) Chest pain ICD Code: R07.9 - Chest pain, unspecified Status: Acute (2) Unstable angina ICD Code: I20.0 - Unstable angina (3) CAD (coronary artery disease) ICD Code: I25.10 - Atherosclerotic heart disease of [place] coronary artery without angina pectoris (4) Stented coronary artery ICD Code: Z95.5 - Presence of coronary angioplasty implant and graft Assessment and Plan 56 year old female admitted due to unstable angina. Plan is for heart catheterization tomorrow. Workup has been expanded with autoimmune evaluation per cardiology. VENICE and ESR are pending. A CRP and rheumatoid factor admitted to this. Unstable angina Coronary artery disease History of coronary stent Chest pain Negative workup for ACS Negative serial cardiac enzymes Aspirin and Brilinta daily Continue supplemental oxygen to keep oxygen saturation more than 92% as needed Continue morphine for pain. When necessary nitroglycerin Follow on telemetry Cardiology following 04/16 that is post cardiac catheterization with patent LAD. Suspect chest pain possibly secondary to costochondritis however given recent stent placement and dual antiplatelet therapy the patient cannot be placed on NSAIDs. I will start a shunt on oral steroids. Hypertension Continue baseline treatment Follow blood pressures Adjust treatments as needed COPD No exacerbation Continue baseline treatments Follow clinically Migraine Headaches No exacerbation Follow clinically DVT prophylaxis Lovenox Discharge Planning Continue to monitor in the medical floor. Monitor on telemetry. Discharge pending cardiology clearance and improvement of chest pain. Problem Qualifiers (1) Chest pain: Qualified Codes: R07.9 - Chest pain, unspecified Rayo Benavidez MD Apr 16, 2017 15:43
[2017-04-16] MEDS: predniSONE 20 MG TAB PO SCH (21:12)
[2017-04-16] MEDS: ATORVASTATIN 40 MG TAB PO SCH (21:13)
[2017-04-16] MEDS: SODIUM CHLORIDE 0.9% FLUSH 10 ML FLUSH IV FLUSH SCH (21:14)
[2017-04-16] MEDS: SODIUM CHLOR 0.9% 1000 ML INJ 1,000 ML IV SCH (21:30)
[2017-04-17] VITALS: BP 140/86; PULSE 73; RESP 18; TEMP 98.1; O2SAT 96
[2017-04-17] MEDS: SODIUM CHLOR 0.9% 1000 ML INJ 1,000 ML IV SCH (00:12)
[2017-04-17] MEDS: MORPHINE SULFATE 2 MG/ML INJ IV PUSH PRN ×3 (00:43→08:52)
[2017-04-17 03:45] VITALS: PULSE 76
[2017-04-17 04:00] VITALS: BP 127/76; PULSE 76; RESP 18; TEMP 98.8; O2SAT 98
[2017-04-17] MEDS: METOPROLOL TARTRATE 50 MG TAB PO SCH ×2 (04:58→12:26)
[2017-04-17 08:00] VITALS: BP 153/95; PULSE 75; RESP 20; TEMP 97.7; O2SAT 95
[2017-04-17] MEDS: predniSONE 20 MG TAB PO SCH (08:52)
[2017-04-17] MEDS: SODIUM CHLORIDE 0.9% FLUSH 10 ML FLUSH IV FLUSH SCH (08:53)
[2017-04-17] MEDS: TICAGRELOR 90 MG TAB PO SCH (08:53)
[2017-04-17] MEDS: PANTOPRAZOLE SOD 40 MG DELAYED RELEASE TAB PO SCH (08:53)
[2017-04-17] MEDS: ASPIRIN 81 MG CHEW TAB PO SCH (08:53)
[2017-04-17] MEDS: amLODIPine BESYLATE 5 MG TAB PO SCH (08:53)
[2017-04-17] MEDS: LOSARTAN 50 MG TAB PO SCH (08:53)
--- NOTE | 2017-04-17 09:23 | HHI.DCPOC ---
Discharge Care Plan Diagnosis: (1) Hypertension (2) Hyperlipidemia (3) CAD (coronary artery disease) (4) Chest pain (5) Hypothyroidism (6) Stented coronary artery (7) Cough Goals to Promote Your Health * To prevent worsening of your condition and complications * To maintain your health at the optimal level Directions to Meet Your Goals Take your medications as prescribed Follow your dietary instruction Follow activity as directed Keep your appointments as scheduled Take your immunizations and boosters as scheduled If your symptoms worsen call your PCP, if no PCP go to Urgent Care Center or Emergency Room Smoking is Dangerous to Your Health. Avoid second hand smoke Call the 24-hour hour crisis hotline for domestic abuse at Rayo Benavidez MD Apr 17, 2017 09:23
[2017-04-17] MEDS ORDERED: oxyCODONE/ACETAMINOPHEN 5 MG/325 MG TAB PO PRN ×2 (09:30)
[2017-04-17] MEDS ORDERED: PERC5TAB12 PO (09:36)
--- NOTE | 2017-04-17 09:36 | HHI.PR ---
Subjective Remarks Patient c/o cough - very frequent since last night, denies sob. States chest pain was very bad last night. Also c/o amna pain at the level of the thoracic spine. Objective Vitals Vital Signs Date Time Temp Pulse Resp B/P (MAP) Pulse Ox O2 Delivery O2 Flow Rate FiO2 04/17/17 04:00 98.8 76 18 127/76 (93) 98 04/17/17 03:45 76 04/17/17 00:00 Room Air 04/17/17 00:00 98.1 73 18 140/86 (104) 96 04/16/17 23:41 75 04/16/17 20:00 Room Air 04/16/17 20:00 98.1 88 18 140/86 (104) 97 04/16/17 19:45 91 04/16/17 16:00 97.9 76 18 142/91 (108) 97 04/16/17 12:20 20 04/16/17 12:00 98.3 72 18 142/82 (102) 97 04/16/17 11:00 Room Air I/O 04/16/17 04/16/17 04/16/17 04/17/17 04/17/17 04/17/17 07:00 15:00 23:00 07:00 15:00 23:00 Intake Total 780 ml 0 ml Output Total 1000 ml Balance 780 ml 0 ml -1000 ml Intake Oral 780 ml 0 ml Output Urine Total 1000 ml # Voids 3 2 # Bowel Movements 2 Result Diagram: 04/14/17 1120 04/14/17 [address] Angiography 04/14/17 1108 Signed Impressions: Service Date/Time: Friday, April 14, 2017 14:26 - CONCLUSION: 1. No PE is identified. Additionally, no acute findings identified to explain the chest pain. 2. Stable nonacute findings include mild cardiomegaly, small hiatal hernia, and ascending aorta which measures at the upper limits of normal in size. Elkin Truong MD Chest X-Ray 04/14/17 1101 Signed Impressions: Service Date/Time: Friday, April 14, 2017 13:11 - CONCLUSION: No acute disease. Faisal Moser MD FACR Objective Remarks AAOx3 NAD Clear lungs BL S1S2 RRR, no MRG no edema in lowr extremities, no calf pain Abdomen obese, soft, nt, nd Medications and IVs Current Medications Medications (Trade) Dose Ordered Sig/[place] Route Start Time Stop Time Status Last Admin (Aspirin Chew) 81 mg DAILY PO 04/15/17 09:00 04/17/17 08:53 (Lipitor) 40 mg HS PO 04/14/17 21:00 04/16/17 21:13 (Brilinta) 90 mg BID PO 04/14/17 21:00 04/17/17 08:53 (Protonix) 40 mg BID PO 04/14/17 21:00 04/17/17 08:53 (Catapres) 0.3 mg TID PRN PO 04/14/17 18:00 (Nitrostat Sl) 0.4 mg Q5M PRN SL 04/14/17 18:15 04/15/17 07:15 (Morphine Inj) 2 mg Q3H PRN IV PUSH 04/14/17 20:45 04/17/17 08:52 (Norvasc) 5 mg DAILY PO 04/15/17 09:00 04/17/17 08:53 (Lopressor) 50 mg Q8HR PO 04/15/17 14:00 04/17/17 04:58 (Cozaar) 100 mg DAILY PO 04/15/17 09:00 04/17/17 08:53 (NS Flush) 2 ml BID IV FLUSH 04/16/17 21:00 04/17/17 08:53 (NS Flush) 2 ml UNSCH PRN IV FLUSH 04/16/17 14:15 (Zofran Inj) 4 mg Q6H PRN IVP 04/16/17 14:15 (Deltasone) 20 mg BID PO 04/16/17 21:00 04/17/17 08:52 (Percocet 5-325 Mg) 1 tab Q4H PRN PO 04/17/17 09:30 UNV (Percocet 5-325 Mg) 2 tab Q4H PRN PO 04/17/17 09:30 UNV Urinary Catheter: No Vascular Central Line Catheter: No A/P Problem List: (1) Chest pain ICD Code: R07.9 - Chest pain, unspecified Status: Acute (2) Unstable angina ICD Code: I20.0 - Unstable angina (3) CAD (coronary artery disease) ICD Code: I25.10 - Atherosclerotic heart disease of [place] coronary artery without angina pectoris (4) Stented coronary artery ICD Code: Z95.5 - Presence of coronary angioplasty implant and graft Assessment and Plan 56 year old female admitted due to unstable angina. Plan is for heart catheterization tomorrow. Workup has been expanded with autoimmune evaluation per cardiology. VENICE and ESR are pending. A CRP and rheumatoid factor admitted to this. Unstable angina - ruled out Coronary artery disease History of coronary stent Chest pain - likely costochondritis versus musculoskeletal. The patient workup was negative for ACS. Patient underwent serial cardiac enzymes. Continued aspirin, Brilinta daily, provide supplemental oxygen to keep oxygen saturation more than 92%. Morphine as needed for pain. As needed nitroglycerin continue. Patient monitor on telemetry. Cardiology consulted. The patient underwent cardiac catheterization with patent LAD. Chest pain suspected to be possibly secondary to costochondritis. Patient started on prednisone. Hypertension Home medications were continued. Since blood pressure remained stable throughout hospital stay. COPD No exacerbation Continue baseline treatments Follow clinically Migraine Headaches No exacerbation Followed clinically. Cough Patient complains of frequent cough. I will obtain a chest x-ray, start on Robitussin-DM. If chest x-ray negative then will discharge home with cough medicine and oral Percocet for pain control. DVT prophylaxis Lovenox Discharge Planning Continue to monitor in the medical floor. Monitor on telemetry. Discharge pending cardiology clearance and improvement of chest pain. Problem Qualifiers (1) Chest pain: Qualified Codes: R07.9 - Chest pain, unspecified (2) CAD (coronary artery disease): Qualified Codes: I25.10 - Atherosclerotic heart disease of [place] coronary artery without angina pectoris Rayo Benavidez MD Apr 17, 2017 09:36
[2017-04-17] MEDS ORDERED: PRED20 PO (09:39)
[2017-04-17] MEDS ORDERED: DEXT10SY2 PO (09:44)
[2017-04-17] MEDS ORDERED: guaiFENesin/DEXTROMETHORPHAN 200 MG/20 MG/10 ML CUP PO ONE (10:00)
--- NOTE | 2017-04-17 10:27 | RADRPT ---
EXAM DATE/TIME: 04/17/2017 09:31 [facility] COMPARISON: CHEST SINGLE AP, April 14, 2017, 13:11. INDICATIONS : Chest pain. MEDICAL HISTORY : Chronic obstructive pulmonary disease. SURGICAL HISTORY : stent 03/2017 ENCOUNTER: Subsequent ACUITY: 4 - 6 days PAIN SCORE: 0/10 LOCATION: Bilateral chest FINDINGS: A single view of the chest demonstrates the lungs to be symmetrically aerated without evidence of mas s, infiltrate or effusion. The cardiomediastinal contours are unremarkable. Osseous structures are intact. CONCLUSION: 1. No acute cardiopulmonary findings. Sven Moser MD on April 17, 2017 at 9:53 Board Certified Radiologist. This report was verified electronically.
[2017-04-17 12:00] VITALS: BP 133/96; PULSE 73; RESP 20; TEMP 98.4; O2SAT 98
[2017-04-17] MEDS ORDERED: guaiFENesin/DEXTROMETHORPHAN 200 MG/20 MG/10 ML CUP PO PRN (12:00)
[2017-04-17] MEDS ORDERED: metFORMIN HCL 500 MG TAB PO SCH (12:00)
[2017-04-17] MEDS ORDERED: METF500T PO (12:04)
--- NOTE | 2017-04-17 12:08 | HHI.DS ---
Discharge Summary Admission Date Apr 14, 2017 at 16:23 Discharge Date: Apr 17, 2017 Admitting Diagnosis Chest Pain (1) Chest pain ICD Code: R07.9 - Chest pain, unspecified Diagnosis: Principal Status: Acute (2) CAD (coronary artery disease) ICD Code: I25.10 - Atherosclerotic heart disease of [place] coronary artery without angina pectoris Diagnosis: Principal Status: Chronic (3) Stented coronary artery ICD Code: Z95.5 - Presence of coronary angioplasty implant and graft Diagnosis: Principal Status: Chronic (4) Hypothyroidism ICD Code: E03.9 - Hypothyroidism, unspecified Diagnosis: Secondary Status: Chronic (5) Hyperlipidemia ICD Code: E78.5 - Hyperlipidemia, unspecified Status: Chronic (6) Cough ICD Code: R05 - Cough Diagnosis: Principal Status: Acute (7) Hypertension ICD Code: I10 - Essential (primary) hypertension Diagnosis: Principal Status: Chronic (8) Costochondritis ICD Code: M94.0 - Chondrocostal junction syndrome [[place]] Diagnosis: Principal Procedures sp cardiac catheterization. Brief History - From Admission Mrs. Rondon is a 56 year old female with known CAD. 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 There she was having chest pain and an EKG done there had concerning findings which may suggest ischemia. Initial troponin shows no acute elevation to suggest STEMI. But her present situation meets criteria for unstable angina. She has known coronary artery disease. This was discovered March 25 at which time she had a stent placed. She is still having intermittent off and on chest pain. Initial cardiac enzymes are within normal limits. Pain is central in her chest and tight. No nausea or vomiting. She does not feel it matches her regular gastroesophageal reflux disease symptoms. No fevers or cough. No recent trauma. She has a strong family history of coronary artery disease with myocardial infarctions in both her mother and father and 2 sisters with known coronary artery disease. No other complaints tonight. CBC/BMP: 04/14/17 1120 04/14/17 1120 Significant Findings Laboratory Tests Test 04/15/17 07:45 04/15/17 14:20 04/16/17 07:15 Erythrocyte Sedimentation Rate 49 mm/hr (0-30) C-Reactive Protein 2.43 MG/DL (0.00-0.30) Imaging Last Impressions Chest X-Ray 04/17/17 0000 Signed Impressions: Service Date/Time: Monday, April 17, 2017 09:31 - CONCLUSION: 1. No acute cardiopulmonary findings. Sven Moser MD CT Angiography 04/14/17 1108 Signed Impressions: Service Date/Time: Friday, April 14, 2017 14:26 - CONCLUSION: 1. No PE is identified. Additionally, no acute findings identified to explain the chest pain. 2. Stable nonacute findings include mild cardiomegaly, small hiatal hernia, and ascending aorta which measures at the upper limits of normal in size. Elkin Truong MD PE at Discharge AAOx3 NAD Clear lungs BL S1S2 RRR, no MRG no edema in lowr extremities, no calf pain Abdomen obese, soft, nt, nd Pt update on day of discharge Patient still c/o of chest pain which is reproducible by palpation, however this is better. Patient however c/o cough, a cxr was ordered and negative for acute disease. Will DC home on prenisone x 5 days to treat chest pain which is likely musculoskeletal in nature vs costochondritis. Hospital Course 56 year old female admitted due to unstable angina. Plan is for heart catheterization tomorrow. Workup has been expanded with autoimmune evaluation per cardiology. VENICE and ESR are pending. A CRP and rheumatoid factor admitted to this. Unstable angina - ruled out Coronary artery disease History of coronary stent Chest pain - likely costochondritis versus musculoskeletal. The patient workup was negative for ACS. Patient underwent serial cardiac enzymes. Continued aspirin, Brilinta daily, provide supplemental oxygen to keep oxygen saturation more than 92%. Morphine as needed for pain. As needed nitroglycerin continue. Patient monitor on telemetry. Cardiology consulted. The patient underwent cardiac catheterization with patent LAD. Chest pain suspected to be possibly secondary to costochondritis. Patient started on prednisone and discharged on Prednisone 40 mg daily x 5 days. Hypertension Home medications were continued. Since blood pressure remained stable throughout hospital stay. COPD Remained stable. Not on any inhalers. Migraine Headaches Stable. No headaches reported during hospital stay. Cough Patient c/o of non productive cough, ordered repeat cxr whi was negative. suspect due to postnasal drip since patient states lately has been having some sinus issues. Discharged on Dextromethorphan - guaifenesin. DVT prophylaxis Lovenox Pt Condition on Discharge: Stable Discharge Disposition: Discharge Home Discharge Time: > 30 minutes Discharge Instructions DIET: Follow Instructions for: Heart Healthy Diet, Diabetic Diet Activities you can perform: Regular-No Restrictions Follow up Referrals: Cardiology - 2 Weeks New Medications: Metformin (Metformin) 500 Mg Tab 500 MG PO BIDPC for Blood Sugar Management, #60 TAB 0 Refills Please start on 04/19/2017 Oxycodone-Acetaminophen (Percocet) 5-325 mg Tab 1-2 TAB PO Q4H PRN for PAIN, #30 TAB 0 Refills Prednisone (Prednisone) 20 Mg Tab 40 MG PO DAILY for Inflammation, #10 TAB 0 Refills Take 40 mg (2 tablets) daily for 5 days Dextromethorphan-Guaifenesin (Dextromethorphan/Guaifene 10-100 mg/5Ml) 100 Mg- 10 Mg/5 Ml Syp 10 ML PO Q6HR PRN for COUGH, #1 BOTTLE Continued Medications: Amlodipine (Amlodipine) 5 Mg Tab 5 MG PO BID for Blood Pressure Management, #60 TAB 0 Refills Aspirin (Tgt Aspirin) 81 Mg Chw 81 MG PO DAILY for Blood Clot Prevention, #30 EA Atorvastatin (Lipitor) 40 Mg Tab 40 MG PO HS for Cholesterol Management, #30 TAB 0 Refills Clonidine (Clonidine) 0.3 Mg Tab 0.3 MG PO TID for Blood Pressure Management, #90 TAB 0 Refills Hydralazine HCl (Hydralazine HCl) 25 Mg Tablet 100 MG PO TID for Blood Pressure Management, #90 TAB 0 Refills Lansoprazole (Prevacid) 30 Mg Capdr 30 MG PO BID, CAP 0 Refills Levothyroxine (Synthroid) 137 Mcg Tab 137 MCG PO DAILY for Thyroid, #30 TAB 0 Refills Losartan (Losartan) 100 Mg Tab 100 MG PO DAILY for Blood Pressure Management, #30 TAB 0 Refills Metoprolol Tartrate (Metoprolol Tartrate) 50 Mg Tab 50 MG PO TID for Blood Pressure Management, #90 TAB 0 Refills Nitroglycerin SL (Nitroglycerin SL) 0.4 Mg Subl 0.4 MG SL DIRECTED PRN for CHEST PAIN, #100 TAB.SL 0 Refills ONE TABLET UNDER THE TONGUE NEEDED FOR CHEST PAIN, MAY REPEAT EVERY FIVE MINUTES FOR A TOTAL OF 3 DOSES OR CALL 911 IF NO RELIEF Nortriptyline (Pamelor) 75 Mg Cap 75 MG PO HS for Depression Control, #30 CAP 0 Refills Potassium Chloride ER (Potassium Chloride ER) 20 Meq Tab 20 MEQ PO BID for Electrolyte Replacement, #60 TAB 0 Refills Ticagrelor (Brilinta) 90 Mg Tab 90 MG PO BID for Blood Clot Prevention, #60 TAB Topiramate (Topamax) 50 Mg Tab 50 MG PO BID for Control Seizures, #60 TAB 0 Refills Rayo Benavidez MD Apr 17, 2017 12:08
== END 2017-04-17 13:54 | disposition home or self-care (01) | DRG 206 ==
LOC: NEPC 10:45 → NEDA 15:00 → OBSVTOIN 16:23 → N04A 18:57
PROVIDERS: ADMIT Hospitalist; ATTEND Hospitalist
PROC: 4A023N7 Measurement of Cardiac Sampling and Pressure, Left Heart, Percutaneous Approach (ICD-10-PCS; principal; 2017-04-16)
PROC: B2111ZZ Fluoroscopy of Multiple Coronary Arteries using Low Osmolar Contrast (ICD-10-PCS; 2017-04-16)
PROC: B2151ZZ Fluoroscopy of Left Heart using Low Osmolar Contrast (ICD-10-PCS; 2017-04-16)
DX: M94.0 Chondrocostal junction syndrome [Tietze] (principal); Z68.41 Body mass index [BMI] 40.0-44.9, adult; I10 Essential (primary) hypertension; E66.01 Morbid (severe) obesity due to excess calories; J44.9 Chronic obstructive pulmonary disease, unspecified; E89.0 Postprocedural hypothyroidism; K21.9 Gastro-esophageal reflux disease without esophagitis; E78.5 Hyperlipidemia, unspecified; I25.10 Atherosclerotic heart disease of native coronary artery without angina pectoris; F41.9 Anxiety disorder, unspecified; G43.909 Migraine, unspecified, not intractable, without status migrainosus; R05 Cough; Z82.49 Family history of ischemic heart disease and other diseases of the circulatory system; Z95.5 Presence of coronary angioplasty implant and graft; Z79.82 Long term (current) use of aspirin
CPT/HCPCS: 71045; 71275; 76937; 80053; 82550; 82552; 83690; 83735; 84484; 85025; 85610; 85652; 85730; 86038; 86140; 86430; 93005; 93458; 96374; 96375; 99152; 99153; C1769; C1893; J1644; J2060; J2250; J2270; J2405; J3010; J7030; J7040; J7512; Q0163; Q9967

== ENCOUNTER 2017-05-19 10:12 | Observation (INO) | payer OTHER, MEDICARE ==
[~2017-05-19 10:12] MED LIST changes: -ATOR40TA16 PO; -CYCL10TA PO; +DEXT10SY2 PO; +LIPI40TA PO; -MEDR4PAK PO; +METF500T PO; -NORT75CA PO; +PAME75CA PO; +PERC5TAB12 PO; +PRED20 PO; +PREV30CA36 PO
[2017-05-19 12:50] VITALS: BP 122/76; PULSE 66; RESP 18; TEMP 98.3; O2SAT 99
[2017-05-19] MEDS ORDERED: TOPI50TA7 PO (13:34)
[2017-05-19] MEDS ORDERED: HYDR-3801 PO (13:35)
--- NOTE | 2017-05-19 13:51 | HHI.HP ---
HPI Primary Care Physician Non-Staff Chief Complaint Chest pain History of Present Illness This is a 56-year-old female with history of CAD with a stent to the LAD the presents to ED via [facility] from [place] [facility] to chest pain center to evaluate chest discomfort. States that for the last 2 days she has had a constant central chest pressure. It became worse this morning at 415 when she also developed some tingling in both legs and arms. She states that she has been short of breath with her symptoms over last 2 days intermittently. Found that certain movements and also activity seems to worsen her symptoms. She has been going to the gym 3 times a week and using an exercise bicycle and has had no chest discomfort. She did not go to the gym 2 days ago. States the symptoms do not feel similar to when she needed a stent about 2 months ago. Tried sublingual nitroglycerin at home without relief. The discomfort is moderate. Denies recent illness. Denies fevers or chills. She saw her construction supervisor/carpenter Dr. Jasper Dixon within the last couple weeks in the office and everything was going okay. Her last heart catheterization was April 16, 2017 which time the stent was found to be patent. Review of Systems General: Patient denies fevers, chills recent, and recent travel HEENT: Patient denies headache, sore throat, difficulty swallowing. Cardiovascular: Has the chest discomfort as mentioned above. Denies sensation of heart beating rapidly or irregularly. No syncope. Denies diaphoresis Respiratory: Intermittent shortness of breath. Denies inspirational chest discomfort. Denies coughing wheezing or hemoptysis. GI: Patient denies nausea, vomiting, diarrhea, abdominal pain, bloody stools. Musculoskeletal: Chronic left knee pain. Patient denies joint edema. Denies calf pain or edema. Neurovascular: Complained of tingling in her arms and legs at 415 this morning. Patient denies numbness, weakness in extremities. Denies headache. Endocrine: Denies polyuria and polydipsia. Hematologic: Denies easy bruising. Skin: Denies rash or itching. Past Family Social History Allergies: Coded Allergies: metronidazole (Verified Allergy, Severe, 05/19/17) TONGUE SWELLING penicillin G (Verified Allergy, Severe, 05/19/17) RASH sulfamethoxazole (Verified Allergy, Severe, 05/19/17) HIVES trimethoprim (Verified Allergy, Severe, 05/19/17) HIVES Past Medical History CAD with stent March 2017. Hyperlipidemia, hypertension, GERD, hypothyroidism, chronic left knee pain, migraines, and obesity. Past Surgical History Heart catheterization 2. Most recently April 16, 2017. March 25, 2017 she had a stent of the LAD. She has had thyroid surgery, hysterectomy, appendectomy, and cholecystectomy. Reported Medications Reported Meds & Active Scripts Active Percocet (Oxycodone-Acetaminophen) 5-325 mg Tab 1-2 Tab PO Q4H PRN Nitroglycerin SL (Nitroglycerin) 0.4 Mg Subl 0.4 Mg SL DIRECTED PRN ONE TABLET UNDER THE TONGUE NEEDED FOR CHEST PAIN, MAY REPEAT EVERY FIVE MINUTES FOR A TOTAL OF 3 DOSES OR CALL 911 IF NO RELIEF Tgt Aspirin (Aspirin) 81 Mg Chw 81 Mg PO DAILY Brilinta (Ticagrelor) 90 Mg Tab 90 Mg PO BID Potassium Chloride ER (Potassium Chloride) 20 Meq Tab 20 Meq PO BID Synthroid (Levothyroxine Sodium) 137 Mcg Tab 137 Mcg PO DAILY Clonidine (Clonidine HCl) 0.3 Mg Tab 0.3 Mg PO TID Amlodipine (Amlodipine Besylate) 5 Mg Tab 5 Mg PO BID Metoprolol Tartrate 50 Mg Tab 50 Mg PO TID Losartan (Losartan Potassium) 100 Mg Tab 100 Mg PO DAILY Reported Hydralazine (Hydralazine HCl) 100 Mg Tab 25 Mg PO TID Take with meals Topiramate 50 Mg Tab 50 Mg PO TID Prevacid (Lansoprazole) 30 Mg Capdr 30 Mg PO BID Lipitor (Atorvastatin Calcium) 40 Mg Tab 40 Mg PO HS Pamelor (Nortriptyline HCl) 75 Mg Cap 75 Mg PO HS Active Ordered Medications Current Medications Medications (Trade) Dose Ordered Sig/[place] Route Start Time Stop Time Status Last Admin (Norvasc) 5 mg BID PO 05/19/17 21:00 UNV (Aspirin Chew) 81 mg DAILY PO 05/20/17 09:00 UNV (Lipitor) 40 mg HS PO 05/19/17 21:00 UNV (Cozaar) 100 mg DAILY PO 05/20/17 09:00 UNV (Lopressor) 50 mg TID PO 05/19/17 18:00 UNV (Percocet 5-325 Mg) 1 tab Q4H PRN PO 05/19/17 13:30 UNV Non-Formulary Medication 30 mg BID PO 05/19/17 21:00 UNV Non-Formulary Medication 137 mcg DAILY PO 05/20/17 09:00 UNV Non-Formulary Medication 75 mg HS PO 05/19/17 21:00 UNV (Tylenol) 500 mg Q4H PRN PO 05/19/17 13:45 UNV (Zofran Inj) 4 mg Q6H PRN IV PUSH 05/19/17 13:45 UNV Family History There is family history of CAD. Social History Non-smoker. Denies alcohol or illicit drugs. She is . Physical Exam Vital Signs Vital Signs Date Time Temp Pulse Resp B/P (MAP) Pulse Ox O2 Delivery O2 Flow Rate FiO2 05/19/17 12:50 98.3 66 18 122/76 (91) 99 Physical Exam GENERAL: This is a well-nourished, well-developed patient, in no apparent distress. Patient speaks in clear complete sentences. Patient is pleasant. HEENT: Head is atraumatic and normocephalic. Neck is supple without lymphadenopathy and trachea is midline. No JVD or carotid bruits. CARDIOVASCULAR: Regular rate and rhythm without murmurs, gallops, or rubs. RESPIRATORY: Clear to auscultation. Breath sounds equal bilaterally. No wheezes , rales, or rhonchi. Chest wall is nontender. No use of accessory muscles. GASTROINTESTINAL: Abdomen is nontender, nondistended. Abdomen soft. No obvious pulsatile mass or bruit. No CVA tenderness. Strong femoral pulses bilaterally. Normal bowel sounds in all quadrants. MUSCULOSKELETAL: Patient is moving upper and lower extremities freely. No calf tenderness or edema, no Homans sign. Strong pulses in upper and lower extremities. NEUROLOGICAL: Patient is alert and oriented. Cranial nerves 2-12 are grossly intact. No focal deficits and speech is clear. SKIN: No rash and turgor is normal. Imaging Chest x-ray reveals nothing acute. Course First and second EKGs are sinus rhythm with nonspecific T-wave changes. Caprini VTE Risk Assessment Caprini VTE Risk Assessment: No/Low Risk (score <= 1) Caprini Risk Assessment Model Point Value = 1 Point Value = 2 Point Value = 3 Point Value = 5 Age 41-60 Minor surgery BMI > 25 kg/m2 Swollen legs Varicose veins or History of unexplained or recurrent spontaneous Oral contraceptives or hormone replacement Sepsis (< 1 month) Serious lung disease, including pneumonia (< 1 month) Abnormal pulmonary function Acute myocardial infarction Congestive heart failure (< 1 month) History of inflammatory bowel disease Medical patient at bed rest Age 61-74 Arthroscopic surgery Major open surgery (> 45 min) Laparoscopic surgery (> 45 min) Malignancy Confined to bed (> 72 hours) Immobilizing plaster cast Central venous access Age >= 75 History of VTE Family history of VTE Factor V Leiden Prothrombin [id number] Lupus anticoagulant Anticardiolipin antibodies Elevated serum homocysteine Heparin-induced thrombocytopenia Other congenital or acquired thrombophilia Stroke (< 1 month) Elective arthroplasty Hip, pelvis, or leg fracture Acute spinal cord injury (< 1 month) Prophylaxis Regimen Total Risk Factor Score Risk Level Prophylaxis Regimen 0-1 Low Early ambulation 2 Moderate Order ONE of the following: *Sequential Compression Device (SCD) *Heparin 5000 units SQ BID 3-4 Higher Order ONE of the following medications: *Heparin 5000 units SQ TID *Enoxaparin/Lovenox 40 mg SQ daily (WT < 150 kg, CrCl > 30 mL/min) *Enoxaparin/Lovenox 30 mg SQ daily (WT < 150 kg, CrCl > 10-29 mL/min) *Enoxaparin/Lovenox 30 mg SQ BID (WT < 150 kg, CrCl > 30 mL/min) AND/OR *Sequential Compression Device (SCD) 5 or more Highest Order ONE of the following medications: *Heparin 5000 units SQ TID (Preferred with Epidurals) *Enoxaparin/Lovenox 40 mg SQ daily (WT < 150 kg, CrCl > 30 mL/min) *Enoxaparin/Lovenox 30 mg SQ daily (WT < 150 kg, CrCl > 10-29 mL/min) *Enoxaparin/Lovenox 30 mg SQ BID (WT < 150 kg, CrCl > 30 mL/min) AND *Sequential Compression Device (SCD) Assessment and Plan Assessment and Plan * Chest pain: Patient will continue to have serial cardiac enzymes and EKGs for ruling out purposes. She will be seen by Dr. Clay of cardiology in the chest pain center. I discussed the patient with Dr. Dixon, suggested that we stress test if we believe that is appropriate. Further plan pending the evaluation of Dr. Clay. * CAD: Patient will continue medications. She will follow-up with her construction supervisor/carpenter. * Hypertension: Continue current medication. * Hyperlipidemia: Continue current medication. Patient is stable at this time. She is agreeable to this plan. Delon Borges May 19, 2017 13:51
[2017-05-19] MEDS ORDERED: MORPHINE SULFATE 2 MG/ML INJ IV PUSH ONE (14:45)
[2017-05-19 15:00] VITALS: PULSE 70
[2017-05-19] MEDS ORDERED: ACETAMINOPHEN 500 MG CPLT PO PRN (15:00)
[2017-05-19] MEDS ORDERED: ONDANSETRON HCL 4 MG/2 ML VIAL IV PUSH PRN (15:00)
[2017-05-19] MEDS ORDERED: oxyCODONE/ACETAMINOPHEN 5 MG/325 MG TAB PO PRN (15:00)
[2017-05-19 15:09] VITALS: BP 154/93; PULSE 74; RESP 18; TEMP 98; O2SAT 99
[2017-05-19 16:23] LABS: TROPONIN I LESS THAN 0.02 NG/ML (0.02-0.05)
--- NOTE | 2017-05-19 16:43 | HHI.DCPOC ---
Discharge Care Plan Diagnosis: (1) Chest pain (2) Hypertension (3) Hyperlipidemia (4) CAD (coronary artery disease) (5) H/O heart artery stent Goals to Promote Your Health * To prevent worsening of your condition and complications * To maintain your health at the optimal level Directions to Meet Your Goals Take your medications as prescribed Follow your dietary instruction Follow activity as directed Keep your appointments as scheduled Take your immunizations and boosters as scheduled If your symptoms worsen call your PCP, if no PCP go to Urgent Care Center or Emergency Room Smoking is Dangerous to Your Health. Avoid second hand smoke Call the 24-hour hour crisis hotline for domestic abuse at Delon Borges May 19, 2017 16:43
[2017-05-19] MEDS ORDERED: hydrALAZINE HCL 25 MG TAB PO SCH (18:00)
[2017-05-19] MEDS ORDERED: METOPROLOL TARTRATE 50 MG TAB PO SCH (18:00)
[2017-05-19] MEDS ORDERED: amLODIPine BESYLATE 5 MG TAB PO SCH (21:00)
[2017-05-19] MEDS ORDERED: LANSOPRAZOLE SOLUTAB 30 MG TAB PO SCH (21:00)
[2017-05-19] MEDS ORDERED: NORTRIPTYLINE 75 MG PO SCH (21:00)
[2017-05-19] MEDS ORDERED: NORTRIPTYLINE HCL 25 MG CAP PO SCH (21:00)
[2017-05-19] MEDS ORDERED: ATORVASTATIN 40 MG TAB PO SCH (21:00)
[2017-05-20] MEDS ORDERED: LEVOTHYROXINE SODIUM 25 MCG TAB PO SCH (06:00)
[2017-05-20] MEDS ORDERED: LEVOTHYROXINE SODIUM 112 MCG TAB PO SCH (06:00)
[2017-05-20] MEDS ORDERED: LOSARTAN 50 MG TAB PO SCH (09:00)
[2017-05-20] MEDS ORDERED: NON-FORMULARY DRUG (Levothyroxine (Synthroid) 137 MCG) PO SCH (09:00)
[2017-05-20] MEDS ORDERED: ASPIRIN 81 MG CHEW TAB PO SCH (09:00)
--- NOTE | 2017-05-20 14:22 | EKG ---
Date Performed: 05/19/2017 Time Performed: 15:16:01 PTAGE: 56 years EKG: Sinus rhythm WITH FIRST DEGREE AV BLOCK POSSIBLE LEFT ATRIAL ENLARGEMENT MODERATE T-WAVE ABNORMALITY, CONSIDER AN TERIOR ISCHEMIA ABNORMAL ECG Since PREVIOUS TRACING , no significant change noted DOCTOR: Trey Bradley Interpretating Date/Time 05/20/2017 14:21:36
== END 2017-05-19 17:49 | disposition home or self-care (01) ==
LOC: NEDDLT 10:12 → NEPFCDU 12:49
PROVIDERS: ADMIT Internal Medicine Interventional Cardiology; ATTEND Internal Medicine Interventional Cardiology
DX: R07.9 Chest pain, unspecified (principal); I25.10 Atherosclerotic heart disease of native coronary artery without angina pectoris; R94.31 Abnormal electrocardiogram [ECG] [EKG]; I10 Essential (primary) hypertension; E78.5 Hyperlipidemia, unspecified; E03.9 Hypothyroidism, unspecified; K21.9 Gastro-esophageal reflux disease without esophagitis; G89.29 Other chronic pain; M25.562 Pain in left knee; Z95.5 Presence of coronary angioplasty implant and graft
CPT/HCPCS: 82550; 82552; 84484; 93005; 96374; G0378; J2270

== ENCOUNTER 2017-10-16 20:19 | Observation (INO) ==
--- NOTE | 2017-10-16 21:00 | ED ---
HPI General Chief Complaint: Chest Pain Stated Complaint: Chest pain Time Seen by Provider: 10/16/17 20:51 History of Present Illness HPI narrative: 57-year-old female presents to the emergency department by private transportation the care of her spouse for evaluation of chest pain since approximately 12 noon today. Patient states she has had associated sweats with mild nausea. Patient has known coronary vessel disease with single stent placed in the LAD March 2017. Her container washer is Dr. Dixon. Patient states throughout the afternoon she has taken a total of 7 sublingual nitroglycerin without significant relief of pain. Currently discomfort as 8/10 in intensity. Patient has also noted some referred pain to the left shoulder. No no vomiting no near syncope or syncope. Patient states she took aspirin 81 mg earlier today and does take Brilinta because of her stent. Patient states she is also receiving IV antibiotics through a PICC line for a dental infection with secondary mandible infection. Patient does not have any pleuritic chest pain and does not have a history of valvular heart disease. Patient has history of hypertension and dyslipidemia denies diabetes or tobacco use. Patient has family history of cardiac disease. Patient has not contacted her container washer. Patient was hospitalized in May 2017 for chest pain and due to her recently undergoing cardiac catheterization with stent placement did not have a stress test at that time. Complete Quality Measures for STEMI Alert Patients Related Data Home Medications Medication Instructions Recorded Confirmed amlodipine 5 mg PO BID 10/16/17 10/16/17 clonidine HCl 0.3 mg PO Q8HR 10/16/17 10/16/17 hydralazine 100 mg PO TID 10/16/17 10/16/17 lansoprazole [Prevacid] 40 mg PO BID 10/16/17 10/16/17 levothyroxine [Synthroid] 137 mcg PO DAILY 10/16/17 10/16/17 losartan 100 mg PO DAILY 10/16/17 10/16/17 metoprolol tartrate 50 mg PO TID 10/16/17 10/16/17 nortriptyline 0.75 mg/kg PO QDRHS 10/16/17 10/16/17 potassium bicarb-citric acid 1 meq/kg PO BID 10/16/17 10/16/17 Allergies Allergy/AdvReac Type Severity Reaction Status Date / Time metronidazole Allergy Severe Anaphylaxis Verified 10/16/17 20:34 penicillin G Allergy Severe Rash Verified 10/16/17 20:34 sulfamethoxazole Allergy Severe Hives Verified 10/16/17 20:34 trimethoprim Allergy Severe Hives Verified 10/16/17 20:34 Review of Systems Except as stated in HPI: all other systems reviewed are negative [facility] Medical History Medical History Acid reflux (Acute) Chest pain (Acute) Coronary artery disease (Acute) History of hysterectomy (Acute) Hypertension (Acute) Hypothyroid (Acute) Migraine (Acute) Recent heart attack (Acute) Surgical History Surgical History H/O heart artery stent (Acute) History of appendectomy (Acute) History of thyroid surgery (Acute) Hx of cholecystectomy (Acute) Family History Family History Father Congestive heart failure Mother Family history of hypertension Social History Social History Substance History: No History of Abuse Second Hand Smoke Exposure: No Smoking Status: Never smoker How Often Do You Have a Drink Containing Alcohol: Never Recent Travel in [facility] within the Last 8 Weeks: No Recent Out of Country Travel within the Last 8 Weeks: No Immunization History Tetanus Immunization: Unsure Hx Influenza Vaccine This Season: No Exam Narrative Exam Narrative: GENERAL: Well-nourished, well-developed patient. No acute distress no respiratory distress SKIN: Focused skin assessment warm/dry. HEAD: Normocephalic. EYES: No scleral icterus. No injection or drainage. NECK: Supple, trachea midline. No JVD or lymphadenopathy. CARDIOVASCULAR: Regular rate and rhythm without murmurs, gallops, or rubs. No murmur. Bilateral radial and dorsalis pedis pulses 2+ to palpation. RESPIRATORY: Breath sounds equal bilaterally. No accessory muscle use. GASTROINTESTINAL: Abdomen soft, non-tender, nondistended. MUSCULOSKELETAL: No cyanosis, or edema. PICC line right upper extremity. BACK: Nontender without obvious deformity. No CVA tenderness. Procedures Hemaprompt Stool Procedural Steps Taken: specimen placed in appropriate test area and controls appropriately positive and negative Hemaprompt Stool Result: positive Course Initial Documented Vital Signs Temperature 98.6 F 10/16/17 20:29 Pulse Rate 101 H 10/16/17 20:29 Respiratory Rate 18 10/16/17 20:29 Blood Pressure 174/76 H 10/16/17 20:29 Pulse Oximetry 99 10/16/17 20:29 Last Documented Vital Signs Temperature 97.6 F 10/18/17 03:34 Pulse Rate 81 10/18/17 05:50 Respiratory Rate 16 10/18/17 03:34 Blood Pressure 102/63 10/18/17 05:50 Pulse Oximetry 99 10/18/17 03:34 Medical Decision Making MDM Narrative Medical decision making narrative: 57-year-old female presents to the emergency department complaining of 8/10 chest pain the reminds her of her cardiac pain it is not pleuritic since around noon today. Patient placed on cafeteria monitor IV access obtained continuous pulse oximetry and specimens collected and sent for resulting. EKG sinus rhythm heart rate 96 with atrial enlargement nonspecific ST-T wave changes no acute ST elevation. Rectal exam: Normal sphincter tone dark brown stool briskly Hemoccult positive Differential Diagnosis Differential Diagnosis: Chest pain, atypical chest pain, ACS, AR, PE, arrhythmia , dissection Medical Records Medical records reviewed: Yes I reviewed the patient's medical records. Lab Data Result diagrams: 10/17/17 13:09 10/17/17 06:00 Lab Results 10/16/17 10/16/17 10/16/17 Range/Units 21:00 21:00 21:00 WBC 8.8 (4.0-11.0) th/mm3 RBC 3.50 L (4.00-5.30) mil/mm3 Hgb 8.3 L (11.6-15.3) gm/dL Hct 26.0 L (35.0-46.0) % MCV 74.3 L (80.0-100.0) fL MCH 23.7 L (27.0-34.0) pg MCHC 31.9 L (32.0-36.0) % RDW 17.1 (11.6-17.2) % Plt Count 313 (150-450) th/mm3 MPV 7.9 (7.0-11.0) fL Neut % (Auto) 65.7 (16.0-70.0) % Lymph % (Auto) 23.9 (9.0-44.0) % [place] % (Auto) 9.3 H (0.0-8.0) % Eos % (Auto) 0.8 (0.0-4.0) % Baso % (Auto) 0.3 (0.0-2.0) % Neut # (Auto) 5.8 (1.8-7.7) th/mm3 Lymph # (Auto) 2.1 (1.0-4.8) th/mm3 [place] # (Auto) 0.8 (0.0-0.9) th/mm3 Eos # (Auto) 0.1 (0.0-0.4) th/mm3 Baso # (Auto) 0.0 (0.0-0.2) th/mm3 WBC Differential . Differential Comment Auto diff final PT 11.9 H (9.8-11.6) sec INR 1.2 Ratio APTT 30.4 H (24.3-30.1) sec Sodium 142 (136-145) meq/L Potassium 3.8 (3.5-5.1) meq/L Chloride 112 H (98-107) meq/L Carbon Dioxide 21.4 (21.0-32.0) meq/L Anion Gap 9 (5-15) meq/L BUN 16 (7-18) mg/dL Creatinine 1.10 H (0.50-1.00) mg/dL Estimated GFR 62 L (>89) mL/min Random Glucose 105 (74-106) mg/dL Calcium 8.6 (8.5-10.1) mg/dL Magnesium 2.0 (1.5-2.5) mg/dL Total Creatine Kinase 105 (26-192) U/L CK-MB (CK-2) 1.1 (0.5-3.6) ng/mL Troponin I Less than 0.02 L (0.02-0.05) ng/mL 10/17/17 10/17/17 10/17/17 Range/Units 02:45 06:00 06:00 WBC 8.0 (4.0-11.0) th/mm3 RBC 3.42 L (4.00-5.30) mil/mm3 Hgb 8.1 L (11.6-15.3) gm/dL Hct 25.3 L (35.0-46.0) % MCV 74.2 L (80.0-100.0) fL MCH 23.7 L (27.0-34.0) pg MCHC 31.9 L (32.0-36.0) % RDW 16.8 (11.6-17.2) % Plt Count 313 (150-450) th/mm3 MPV 8.0 (7.0-11.0) fL Neut % (Auto) 69.4 (16.0-70.0) % Lymph % (Auto) 20.8 (9.0-44.0) % [place] % (Auto) 8.7 H (0.0-8.0) % Eos % (Auto) 0.8 (0.0-4.0) % Baso % (Auto) 0.3 (0.0-2.0) % Neut # (Auto) 5.6 (1.8-7.7) th/mm3 Lymph # (Auto) 1.7 (1.0-4.8) th/mm3 [place] # (Auto) 0.7 (0.0-0.9) th/mm3 Eos # (Auto) 0.1 (0.0-0.4) th/mm3 Baso # (Auto) 0.0 (0.0-0.2) th/mm3 WBC Differential . Differential Comment Auto diff final PT (9.8-11.6) sec INR Ratio APTT (24.3-30.1) sec Sodium 143 (136-145) meq/L Potassium 3.5 (3.5-5.1) meq/L Chloride 112 H (98-107) meq/L Carbon Dioxide 21.8 (21.0-32.0) meq/L Anion Gap 9 (5-15) meq/L BUN 14 (7-18) mg/dL Creatinine 0.98 (0.50-1.00) mg/dL Estimated GFR 71 L (>89) mL/min Random Glucose 90 (74-106) mg/dL Calcium 8.1 L (8.5-10.1) mg/dL Magnesium (1.5-2.5) mg/dL Total Creatine Kinase 98 (26-192) U/L CK-MB (CK-2) (0.5-3.6) ng/mL Troponin I Less than 0.02 L (0.02-0.05) ng/mL 10/17/17 10/17/17 Range/Units 13:09 13:09 WBC (4.0-11.0) th/mm3 RBC (4.00-5.30) mil/mm3 Hgb 8.2 L (11.6-15.3) gm/dL Hct 25.6 L (35.0-46.0) % MCV (80.0-100.0) fL MCH (27.0-34.0) pg MCHC (32.0-36.0) % RDW (11.6-17.2) % Plt Count (150-450) th/mm3 MPV (7.0-11.0) fL Neut % (Auto) (16.0-70.0) % Lymph % (Auto) (9.0-44.0) % [place] % (Auto) (0.0-8.0) % Eos % (Auto) (0.0-4.0) % Baso % (Auto) (0.0-2.0) % Neut # (Auto) (1.8-7.7) th/mm3 Lymph # (Auto) (1.0-4.8) th/mm3 [place] # (Auto) (0.0-0.9) th/mm3 Eos # (Auto) (0.0-0.4) th/mm3 Baso # (Auto) (0.0-0.2) th/mm3 WBC Differential Differential Comment PT (9.8-11.6) sec INR Ratio APTT (24.3-30.1) sec Sodium (136-145) meq/L Potassium (3.5-5.1) meq/L Chloride (98-107) meq/L Carbon Dioxide (21.0-32.0) meq/L Anion Gap (5-15) meq/L BUN (7-18) mg/dL Creatinine (0.50-1.00) mg/dL Estimated GFR (>89) mL/min Random Glucose (74-106) mg/dL Calcium (8.5-10.1) mg/dL Magnesium (1.5-2.5) mg/dL Total Creatine Kinase 95 (26-192) U/L CK-MB (CK-2) (0.5-3.6) ng/mL Troponin I Less than 0.02 L (0.02-0.05) ng/mL Imaging Data Radiologist's impression: Chest X-Ray 10/16/17 20:51 CONCLUSION: The lungs are clear. Myocardial Perfusion Scan Nuc Med 10/17/17 09:15 CONCLUSION: 1. There is ischemia in the RCA territory and high septal wall to a moderate degree. ECG Data EKG Prior to Arrival: No Attestation: I personally reviewed and interpreted this ECG as follows: Prior ECG tracings: available for review Interpretation: EKG normal sinus rhythm rate [address] elevation nonspecific ST-T change inferiorly Discharge Plan Discharge Disposition Patient Disposition: 30 Still Patient Discharge Condition Condition: Stable Discharge Details Diagnosis: Chest pain, Anemia, Fecal occult blood test positive Physicians Team ED Provider: Mariana Taylor Primary Care Provider: NON STAFF,PROVIDER Attending Provider: Cheikh Marcelino Other Providers: ; Gavin Winkler ; Jasper Dixon Status ED Status: Left Department Discharge Information Discharge Date/Time: 10/17/17 13:12
[2017-10-16] MEDS ORDERED: Morphine Inj 4 MG/ML Vial IV.PUSH ONE (21:22)
[2017-10-16 21:37] LABS: Baso % (Auto) 0.3 % (0.0-2.0); Eos # (Auto) 0.1 th/mm3 (0.0-0.4); Eos % (Auto) 0.8 % (0.0-4.0); Hemoglobin 8.3 gm/dL (11.6-15.3); Lymph # (Auto) 2.1 th/mm3 (1.0-4.8); Lymph % (Auto) 23.9 % (9.0-44.0); Mean Corpuscular HGB Conc 31.9 % (32.0-36.0); Mean Corpuscular Hemoglobin 23.7 pg (27.0-34.0); Mean Corpuscular Volume 74.3 fL (80.0-100.0); Mean Platelet Volume 7.9 fL (7.0-11.0); Mono # (Auto) 0.8 th/mm3 (0.0-0.9); Mono % (Auto) 9.3 % (0.0-8.0); Neut # (Auto) 5.8 th/mm3 (1.8-7.7); Neut % (Auto) 65.7 % (16.0-70.0); Platelet Count 313 th/mm3 (150-450); Red Cell Distribution Width 17.1 % (11.6-17.2); White Blood Count 8.8 th/mm3 (4.0-11.0)
--- NOTE | 2017-10-16 21:39 | XR ---
EXAM DATE: 10/16/2017 9:05 PM EDT AGE/SEX: 57 years / Female INDICATIONS: . Chest pain CLINICAL DATA: This is the patient's initial encounter. Patient reports that signs and symptoms have been present for 1 day and indicates a pain score of 2/10. MEDICAL/SURGICAL HISTORY: Cardiovascular disease. Carotid stent. COMPARISON: [facility], CHEST SINGLE AP, 05/19/2017. . FINDINGS: A single AP view of the chest demonstrates the lungs to be symmetrically aerated without evidence of mass, infiltrate or effusion. The heart is normal size. Stable tortuosity descending thoracic aorta.. Osseous structures are intact. CONCLUSION: The lungs are clear. Electronically signed by: Pepe Coughlin MD 10/16/2017 9:37 PM EDT
[2017-10-16] MEDS: Sod Chloride 0.9% Inj 1,000 ML IV.CONT SCH (21:46)
[2017-10-16 21:51] LABS: Activated Partial Thrombo Time 30.4 sec (24.3-30.1); INR 1.2 Ratio; Prothrombin Time 11.9 sec (9.8-11.6)
[2017-10-16 21:59] LABS: Anion Gap 9 meq/L (5-15); Blood Urea Nitrogen 16 mg/dL (7-18); Calcium 8.6 mg/dL (8.5-10.1); Carbon Dioxide 21.4 meq/L (21.0-32.0); Chloride 112 meq/L (98-107); Glomerular Filtration Rate 62 mL/min (>89); Glucose,Random 105 mg/dL (74-106); Potassium 3.8 meq/L (3.5-5.1); Sodium 142 meq/L (136-145)
[2017-10-16 22:03] LABS: Creatine Kinase 105 U/L (26-192)
[2017-10-16 22:16] LABS: Creatine Kinase MB 1.1 ng/mL (0.5-3.6)
[2017-10-16] MEDS ORDERED: Ketorolac Inj 30 MG/ML (IVP) Vial IV.PUSH ONE (23:45)
[2017-10-16] MEDS ORDERED: Morphine Sulfate Inj 2 MG/ML Vial IV.PUSH ONE (23:46)
[2017-10-17] MEDS ORDERED: Morphine Inj 4 MG/ML Vial IV.PUSH ONE (00:45)
--- NOTE | 2017-10-17 03:43 | P.HPIM ---
History of Present Illness Primary Care Physician: PROVIDER NON STAFF History of Present Illness: 57-year-old female with a history of GERD, hypertension, hypothyroid, [place] presented to the ED with complaints of chest pain. Patient states that her chest pain began today and is constant, 6/10, in the lower left side of her chest with radiation down her right arm with associated nausea, dizziness and shortness of breath. She was last seen in March 2017 and had a cardiac cath with stent placement by Dr. Dixon. She states she had just followed up with Dr. Dixon in the office and there is no changes to her EKG and no chest pain at this time. She denies any associated fevers or chills. A drop in hemoglobin was noted by the ER physician so a rectal exam was performed and patient was found to be Hemoccult positive. She does complain of intermittent rectal bleeding from time to time, has unable to have a colonoscopy done in the past due to an adequate prepping. She denies any hemorrhoids. She does state that her abdomen is mildly distended but denies any change in bowel movements, last BM was this morning. - Diagnosis (1) Chest pain (2) Anemia Inpatient Certification: I certify that the inpatient services were ordered in accordance with Medicare regulations governing the order. This includes certification that hospital inpatient services are reasonable and necessary and in the case of services not specified as inpatient-only under 42 CFR 419.22(n), that they are appropriately provided as inpatient services in accordance to with the 2-midnight benchmark under 43 CFR 412.3(e) Review of Systems All other systems reviewed negative except as stated in HPI [facility] - History History Provided By: Patient - Medical History Medical History: Medical History (Last Updated 10/17/17 @ 03:33 by LUCY Askew) Acid reflux Chest pain Coronary artery disease History of hysterectomy Hypertension Hypothyroid Migraine Recent heart attack - Surgical History Surgical History: Surgical History (Last Updated 10/17/17 @ 03:33 by LUCY Askew) H/O heart artery stent History of appendectomy History of thyroid surgery Hx of cholecystectomy - Family History Family History: Family History (Last Updated 10/17/17 @ 03:31 by LUCY Askew) Father Congestive heart failure Mother Family history of hypertension - Tobacco History Second Hand Smoke Exposure: No Tobacco Use In Past 30 Days: No Smoking Status: Never smoker - Alcohol History How Often Do You Have a Drink Containing Alcohol: Never - Substance Use History Substance History: No History of Abuse - Travel History Recent Travel in the [place] Within the Last 8 Weeks: No Recent Travel Out of the Country Within the Last 8 Weeks: No - Immunization History Tetanus Immunization: Unsure Hx Influenza Vaccine This Season: No Medications and Allergies Active Medications: Active Medications Acetaminophen (Tylenol) 650 mg PO Q4H PRN PRN Reason: Temp > 100.4 Sodium Chloride (Ns Inj) 1,000 mls @ 100 mls/hr IV.CONT .Q10H BILLY Last Admin: 10/16/17 21:46 Dose: 100 mls/hr Ondansetron HCl (Zofran Odt) 4 mg PO Q6H PRN PRN Reason: NAUSEA OR VOMITING Pantoprazole Sodium (Protonix Inj) 40 mg IV.PUSH Q12H [facility] Sodium Chloride (Ns Flush) 2 ml IV.FLUSH UNSCH PRN PRN Reason: FLUSH AFTER USING IV ACCESS Allergies Allergy/AdvReac Type Severity Reaction Status Date / Time metronidazole Allergy Severe Anaphylaxis Verified 10/16/17 20:34 penicillin G Allergy Severe Rash Verified 10/16/17 20:34 sulfamethoxazole Allergy Severe Hives Verified 10/16/17 20:34 trimethoprim Allergy Severe Hives Verified 10/16/17 20:34 Home Medications Medication Instructions Recorded Confirmed Type amlodipine 5 mg PO BID 10/16/17 10/16/17 History clonidine HCl 0.3 mg PO Q8HR 10/16/17 10/16/17 History hydralazine 100 mg PO TID 10/16/17 10/16/17 History lansoprazole [Prevacid] 40 mg PO BID 10/16/17 10/16/17 History levothyroxine [Synthroid] 137 mcg PO DAILY 10/16/17 10/16/17 History losartan 100 mg PO DAILY 10/16/17 10/16/17 History metoprolol tartrate 50 mg PO TID 10/16/17 10/16/17 History nortriptyline 0.75 mg/kg PO QDRHS 10/16/17 10/16/17 History potassium bicarb-citric acid 1 meq/kg PO BID 10/16/17 10/16/17 History Exam Vital signs: Vital Signs 10/16/17 20:29 10/16/17 20:49 10/16/17 22:42 Temperature 98.6 F Pulse Rate 101 H 87 Respiratory Rate 18 18 18 Blood Pressure 174/76 H 140/73 136/84 Pulse Oximetry 99 97 98 Intake & Output 10/16/17 10/16/17 10/17/17 06:59 18:59 06:59 Weight 107.048 kg - Constitutional no acute distress - Routine HEENT Exam Head: Present: normocephalic Eye: Present: EOMI, PERRL - Routine Neck Exam Present: supple, full ROM - Routine Respiratory Exam Absent: accessory muscle use, stridor, wheezes, crackles - Routine Cardiovascular Exam Present: RRR. Absent: murmur, gallop, rubs - Routine Abdominal Exam Present: soft, distended. Absent: tenderness - Routine Skin Exam Present: intact - Routine Neurological Exam Present: alert, oriented X3 Results - Labs CBC & Chem 7: 10/16/17 21:00 10/16/17 21:00 Labs: Short CBC 10/16/17 Range/Units 21:00 WBC 8.8 (4.0-11.0) th/mm3 Hgb 8.3 L (11.6-15.3) gm/dL Hct 26.0 L (35.0-46.0) % Plt Count 313 (150-450) th/mm3 BMP 10/16/17 21:00 Sodium 142 Potassium 3.8 Chloride 112 H Carbon Dioxide 21.4 BUN 16 Creatinine 1.10 H Calcium 8.6 Cardiac Enzymes 10/16/17 Range/Units 21:00 Total Creatine Kinase 105 (26-192) U/L CK-MB (CK-2) 1.1 (0.5-3.6) ng/mL Troponin I Less than 0.02 L (0.02-0.05) ng/mL - Imaging Impressions Chest X-Ray 10/16/17 20:51 CONCLUSION: The lungs are clear. Caprini VTE Risk Assessment Caprini VTE Risk Assessment: Moderate/High Risk (score >= 2) VTE Pharmacological Exception Reason: Active bleeding Caprini Risk Assessment Model: Point Value = 1 Point Value = 2 Point Value = 3 Point Value = 5 Age 41-60 Minor surgery BMI > 25 kg/m2 Swollen legs Varicose veins or History of unexplained or recurrent spontaneous Oral contraceptives or hormone replacement Sepsis (< 1 month) Serious lung disease, including pneumonia (< 1 month) Abnormal pulmonary function Acute myocardial infarction Congestive heart failure (< 1 month) History of inflammatory bowel disease Medical patient at bed rest Age 61-74 Arthroscopic surgery Major open surgery (> 45 min) Laparoscopic surgery (> 45 min) Malignancy Confined to bed (> 72 hours) Immobilizing plaster cast Central venous access Age >= 75 History of VTE Family history of VTE Factor V Leiden Prothrombin [id number] Lupus anticoagulant Anticardiolipin antibodies Elevated serum homocysteine Heparin-induced thrombocytopenia Other congenital or acquired thrombophilia Stroke (< 1 month) Elective arthroplasty Hip, pelvis, or leg fracture Acute spinal cord injury (< 1 month) Prophylaxis Regimen: Total Risk Factor Score Risk Level Prophylaxis Regimen 0-1 Low Early ambulation 2 Moderate Order ONE of the following: *Sequential Compression Device (SCD) *Heparin 5000 units SQ BID 3-4 Higher Order ONE of the following medications: *Heparin 5000 units SQ TID *Enoxaparin/Lovenox 40 mg SQ daily (WT < 150 kg, CrCl > 30 mL/min) *Enoxaparin/Lovenox 30 mg SQ daily (WT < 150 kg, CrCl > 10-29 mL/min) *Enoxaparin/Lovenox 30 mg SQ BID (WT < 150 kg, CrCl > 30 mL/min) AND/OR *Sequential Compression Device (SCD) 5 or more Highest Order ONE of the following medications: *Heparin 5000 units SQ TID (Preferred with Epidurals) *Enoxaparin/Lovenox 40 mg SQ daily (WT < 150 kg, CrCl > 30 mL/min) *Enoxaparin/Lovenox 30 mg SQ daily (WT < 150 kg, CrCl > 10-29 mL/min) *Enoxaparin/Lovenox 30 mg SQ BID (WT < 150 kg, CrCl > 30 mL/min) AND *Sequential Compression Device (SCD) Assessment and Plan - Assessment (1) Chest pain Code(s): R07.9 - Chest pain, unspecified Status: Acute (2) Anemia Code(s): D64.9 - Anemia, unspecified Status: Acute - Plan Chest pain, likely secondary to anemia, rule out ACS Troponin 0.02, EKG reviewed and shows some T-wave abnormalities that is new -Serial troponin and EKGs -Consult cardiology due to EKG changes, patient known to Dr. Dixon -Monitor telemetry -Nitropaste ordered, morphine for chest pain -Hold heparin due to GI bleed GI bleed Hemoglobin 8.3, baseline around 10 -Consult GI for recommendations -Protonix IV -Serial H&H, transfuse as needed Hypertension, chronic -Resume home medications amlodipine, clonidine, losartan, hydralazine and metoprolol -Monitor vitals Hypothyroidism, chronic -Resume home medications levothyroxine Hyperlipidemia -Resume home medications DVT prophylaxis: SCDs, hold chemical due to GI bleed Code Status: Full Discussed Condition With: Patient and RN (1) Chest pain Qualifiers: Chest pain type: precordial pain Qualified Code(s): R07.2 - Precordial pain (2) Anemia Qualifiers: Anemia type: iron deficiency Iron deficiency anemia type: unspecified iron deficiency Qualified Code(s): D50.9 - Iron deficiency anemia, unspecified
[2017-10-17] MEDS ORDERED: NORTRIPTYLINE PO SCH (03:45)
[2017-10-17 04:39] LABS: Creatine Kinase 98 U/L (26-192)
[2017-10-17] MEDS: Pantoprazole Inj 40 MG Vial IV.PUSH SCH ×2 (05:27→16:35)
[2017-10-17 07:24] LABS: Baso % (Auto) 0.3 % (0.0-2.0); Eos # (Auto) 0.1 th/mm3 (0.0-0.4); Eos % (Auto) 0.8 % (0.0-4.0); Hematocrit 25.3 % (35.0-46.0); Hemoglobin 8.1 gm/dL (11.6-15.3); Lymph # (Auto) 1.7 th/mm3 (1.0-4.8); Lymph % (Auto) 20.8 % (9.0-44.0); Mean Corpuscular HGB Conc 31.9 % (32.0-36.0); Mean Corpuscular Hemoglobin 23.7 pg (27.0-34.0); Mean Corpuscular Volume 74.2 fL (80.0-100.0); Mono # (Auto) 0.7 th/mm3 (0.0-0.9); Mono % (Auto) 8.7 % (0.0-8.0); Neut # (Auto) 5.6 th/mm3 (1.8-7.7); Neut % (Auto) 69.4 % (16.0-70.0); Platelet Count 313 th/mm3 (150-450); Red Blood Count 3.42 mil/mm3 (4.00-5.30); Red Cell Distribution Width 16.8 % (11.6-17.2)
[2017-10-17] MEDS: Levothyroxine 112 MCG Tablet PO SCH (07:36)
[2017-10-17 07:53] LABS: Calcium 8.1 mg/dL (8.5-10.1); Carbon Dioxide 21.8 meq/L (21.0-32.0); Potassium 3.5 meq/L (3.5-5.1)
--- NOTE | 2017-10-17 08:45 | P.CONGI ---
History of Present Illness Consult date: 10/17/17 Consult reason: Anemia Chief complaint: chest pain, anemia w/gib History of Present Illness: This is a 57 yo F with PMH significant for AK in March S/P LAD stent placement who had repeat cardiac catheterization done in April which revealed patent stent. Pt presented to the ER last night with complaints of chest pain underneath her left breast that radiates down into her left arm. Pain began as intermittent two days ago and then became constant yesterday. Denies pain as sharp. Pt states pain is worse with activity. Also endorses SOB and easily fatiguable with activity. Our service has been consulted to evaluate pt for anemia with Hemoccult positive stool. Pt complains of epigastric pain that she states has been intermittent for the past month, worse when she is hungry. Also complaining of intermittently noticing blood in her stools for the past couple months, states sometimes the blood is bright red and other times it is dark red. Pt reports weight loss since March, but states it has been intentional as she has been trying to eat healthier and lose weight since her heart attack. Last EGD and colonoscopy early last year by Dr. Cohen in [place], states the prep was so poor with her colonoscopy that they were unable to do the procedures and reports a normal EGD. Denies ETOH, smoking, NSAID use. On Brilinta (last dose was yesterday morning) and ASA for cardiac stent. <Damaris Larson - Last Filed: 10/17/17 14:35> Review of Systems Constitutional: Reports fatigue, Reports lack of energy Cardiovascular: Reports chest pain, Reports chest pain with activity, Reports radiating jaw, neck or arm pain, Reports shortness of breath with activity Respiratory: Reports shortness of breath with activity Gastrointestinal: Reports abdominal pain, Reports bright, red blood in stools, Reports heartburn, Reports nausea, Denies black, tarry stools, Denies vomiting, Denies vomiting blood Neurologic: Reports dizziness <Damaris Larson - Last Filed: 10/17/17 14:35> COUNT INCLUDES THE [facility] - History History Provided By: Patient - Medical History Medical History: Medical History (Last Updated 10/17/17 @ 03:33 by LUCY Askew) Acid reflux Chest pain Coronary artery disease History of hysterectomy Hypertension Hypothyroid Migraine Recent heart attack - Surgical History Surgical History: Surgical History (Last Updated 10/17/17 @ 03:33 by LUCY Askew) H/O heart artery stent History of appendectomy History of thyroid surgery Hx of cholecystectomy - Family History Family History: Family History (Last Updated 10/17/17 @ 03:31 by LUCY Askew) Father Congestive heart failure Mother Family history of hypertension - Tobacco History Second Hand Smoke Exposure: No Tobacco Use In Past 30 Days: No Smoking Status: Never smoker - Alcohol History How Often Do You Have a Drink Containing Alcohol: Never - Substance Use History Substance History: No History of Abuse - Travel History Recent Travel in the [place] Within the Last 8 Weeks: No Recent Travel Out of the Country Within the Last 8 Weeks: No - Immunization History Tetanus Immunization: Unsure Hx Influenza Vaccine This Season: No <Damaris Larson - Last Filed: 10/17/17 14:35> - Medical History Medical History: Medical History (Last Updated 10/17/17 @ 03:33 by LUCY Askew) Acid reflux Chest pain Coronary artery disease History of hysterectomy Hypertension Hypothyroid Migraine Recent heart attack - Surgical History Surgical History: Surgical History (Last Updated 10/17/17 @ 03:33 by LUCY Askew) H/O heart artery stent History of appendectomy History of thyroid surgery Hx of cholecystectomy - Family History Family History: Family History (Last Updated 10/17/17 @ 03:31 by LUCY Askew) Father Congestive heart failure Mother Family history of hypertension <Gavin Winkler - Last Filed: 10/17/17 19:44> Medications and Allergies Active Medications: Active Medications Acetaminophen (Tylenol) 650 mg PO Q4H PRN PRN Reason: Temp > 100.4 Amlodipine Besylate (Norvasc) 5 mg PO BID [facility] Clonidine HCl (Catapres) 0.3 mg PO Q8HR [facility] Hydralazine HCl (Apresoline) 100 mg PO TID [facility] Sodium Chloride (Ns Inj) 1,000 mls @ 100 mls/hr IV.CONT .Q10H [facility] Last Infusion: 10/17/17 05:28 Dose: 100 mls/hr Levothyroxine Sodium (Synthroid) 112 mcg PO DAILY@0600 [facility] Last Admin: 10/17/17 07:36 Dose: 112 mcg Levothyroxine Sodium (Synthroid) 25 mcg PO DAILY@0600 [facility] Last Admin: 10/17/17 07:36 Dose: 25 mcg Losartan Potassium (Cozaar) 100 mg PO DAILY [facility] Metoprolol Tartrate (Lopressor) 50 mg PO TID [facility] Nitroglycerin (Nitro-Bid 2% Oint) 1 inch TOPICAL Q6HR [facility] Last Admin: 10/17/17 07:38 Dose: 1 inch Nortriptyline HCl (Pamelor) 75 mg PO HS [facility] Ondansetron HCl (Zofran Odt) 4 mg PO Q6H PRN PRN Reason: NAUSEA OR VOMITING Pantoprazole Sodium (Protonix Inj) 40 mg IV.PUSH Q12H [facility] Last Admin: 10/17/17 05:27 Dose: 40 mg Sodium Chloride (Ns Flush) 2 ml IV.FLUSH BID [facility] Sodium Chloride (Ns Flush) 2 ml IV.FLUSH PRN PRN PRN Reason: FLUSH AFTER USING IV ACCESS <Damaris Larson - Last Filed: 10/17/17 14:35> Active Medications: Active Medications Acetaminophen (Tylenol) 650 mg PO Q4H PRN PRN Reason: Temp > 100.4 Last Admin: 10/17/17 10:28 Dose: 650 mg Amlodipine Besylate (Norvasc) 5 mg PO BID [facility] Last Admin: 10/17/17 10:23 Dose: 5 mg Clonidine HCl (Catapres) 0.3 mg PO Q8HR [facility] Last Admin: 10/17/17 16:35 Dose: Not Given Hydralazine HCl (Apresoline) 100 mg PO TID [facility] Last Admin: 10/17/17 19:36 Dose: Not Given Sodium Chloride (Ns Inj) 1,000 mls @ 100 mls/hr IV.CONT .Q10H [facility] Last Admin: 10/17/17 11:28 Dose: Not Given Levothyroxine Sodium (Synthroid) 112 mcg PO DAILY@0600 [facility] Last Admin: 10/17/17 07:36 Dose: 112 mcg Levothyroxine Sodium (Synthroid) 25 mcg PO DAILY@0600 [facility] Last Admin: 10/17/17 07:36 Dose: 25 mcg Losartan Potassium (Cozaar) 100 mg PO DAILY [facility] Last Admin: 10/17/17 11:28 Dose: 100 mg Metoprolol Tartrate (Lopressor) 50 mg PO TID [facility] Last Admin: 10/17/17 19:36 Dose: Not Given Nitroglycerin (Nitro-Bid 2% Oint) 1 inch TOPICAL Q6HR [facility] Last Admin: 10/17/17 13:31 Dose: Not Given Nortriptyline HCl (Pamelor) 75 mg PO HS [facility] Ondansetron HCl (Zofran Odt) 4 mg PO Q6H PRN PRN Reason: NAUSEA OR VOMITING Last Admin: 10/17/17 09:38 Dose: 4 mg Pantoprazole Sodium (Protonix Inj) 40 mg IV.PUSH Q12H [facility] Last Admin: 10/17/17 16:35 Dose: Not Given Sodium Chloride (Ns Flush) 2 ml IV.FLUSH BID [facility] Last Admin: 10/17/17 10:24 Dose: Not Given Sodium Chloride (Ns Flush) 2 ml IV.FLUSH PRN PRN PRN Reason: FLUSH AFTER USING IV ACCESS <Gavin Winkler E - Last Filed: 10/17/17 19:44> Allergies Allergy/AdvReac Type Severity Reaction Status Date / Time metronidazole Allergy Severe Anaphylaxis Verified 10/16/17 20:34 penicillin G Allergy Severe Rash Verified 10/16/17 20:34 sulfamethoxazole Allergy Severe Hives Verified 10/16/17 20:34 trimethoprim Allergy Severe Hives Verified 10/16/17 20:34 Home Medications Medication Instructions Recorded Confirmed Type amlodipine 5 mg PO BID 10/16/17 10/16/17 History clonidine HCl 0.3 mg PO Q8HR 10/16/17 10/16/17 History hydralazine 100 mg PO TID 10/16/17 10/16/17 History lansoprazole [Prevacid] 40 mg PO BID 10/16/17 10/16/17 History levothyroxine [Synthroid] 137 mcg PO DAILY 10/16/17 10/16/17 History losartan 100 mg PO DAILY 10/16/17 10/16/17 History metoprolol tartrate 50 mg PO TID 10/16/17 10/16/17 History nortriptyline 0.75 mg/kg PO QDRHS 10/16/17 10/16/17 History potassium bicarb-citric acid 1 meq/kg PO BID 10/16/17 10/16/17 History Exam Vital signs: Vital Signs 10/16/17 20:29 10/16/17 20:49 10/16/17 22:42 Temperature 98.6 F Pulse Rate 101 H 87 Respiratory Rate 18 18 18 Blood Pressure 174/76 H 140/73 136/84 Pulse Oximetry 99 97 98 10/17/17 03:49 10/17/17 07:32 Temperature 98.2 F Pulse Rate 86 83 Respiratory Rate 18 21 Blood Pressure 127/75 134/77 Pulse Oximetry 96 Intake & Output 10/16/17 10/17/17 10/17/17 18:59 06:59 18:59 Weight 107.048 kg - Constitutional no acute distress - Routine HEENT Exam Head: Present: normocephalic, atraumatic - Routine Chest/Breast/Axilla Exam Chest wall: Absent: tenderness - Routine Respiratory Exam Present: CTA bilaterally. Absent: accessory muscle use - Routine Cardiovascular Exam Present: RRR - Routine Abdominal Exam Present: soft, normoactive bowel sounds, tenderness (epigastric tenderness). Absent: distended, rebound, guarding, firm - Routine Skin Exam Present: dry, warm - Routine Neurological Exam Present: alert, oriented X3 <Damaris Larson - Last Filed: 10/17/17 14:35> Vital signs: Vital Signs 10/16/17 20:29 10/16/17 20:49 10/16/17 22:42 Temperature 98.6 F Pulse Rate 101 H 87 Respiratory Rate 18 18 18 Blood Pressure 174/76 H 140/73 136/84 Pulse Oximetry 99 97 98 10/17/17 03:49 10/17/17 07:32 10/17/17 09:39 Temperature 98.2 F Pulse Rate 86 83 87 Respiratory Rate 18 21 24 Blood Pressure 127/75 134/77 144/81 H Pulse Oximetry 96 97 10/17/17 11:27 Temperature Pulse Rate 78 Respiratory Rate 17 Blood Pressure 120/69 Pulse Oximetry 97 Intake & Output 10/17/17 10/17/17 10/18/17 06:59 18:59 06:59 Weight 107.048 kg <Gavin Winkler - Last Filed: 10/17/17 19:44> Results - Labs CBC & Chem 7: 10/17/17 13:09 10/17/17 06:00 Labs: Laboratory Results - last 24 hr 10/16/17 10/16/17 10/16/17 21:00 21:00 21:00 WBC 8.8 RBC 3.50 L Hgb 8.3 L Hct 26.0 L MCV 74.3 L MCH 23.7 L MCHC 31.9 L RDW 17.1 Plt Count 313 MPV 7.9 Neut % (Auto) 65.7 Lymph % (Auto) 23.9 Payne % (Auto) 9.3 H Eos % (Auto) 0.8 Baso % (Auto) 0.3 Neut # (Auto) 5.8 Lymph # (Auto) 2.1 Payne # (Auto) 0.8 Eos # (Auto) 0.1 Baso # (Auto) 0.0 WBC Differential . Differential Comment Auto diff final PT 11.9 H INR 1.2 APTT 30.4 H Sodium 142 Potassium 3.8 Chloride 112 H Carbon Dioxide 21.4 Anion Gap 9 BUN 16 Creatinine 1.10 H Estimated GFR 62 L Random Glucose 105 Calcium 8.6 Magnesium 2.0 Total Creatine Kinase 105 CK-MB (CK-2) 1.1 Troponin I Less than 0.02 L 10/17/17 10/17/17 10/17/17 02:45 06:00 06:00 WBC 8.0 RBC 3.42 L Hgb 8.1 L Hct 25.3 L MCV 74.2 L MCH 23.7 L MCHC 31.9 L RDW 16.8 Plt Count 313 MPV 8.0 Neut % (Auto) 69.4 Lymph % (Auto) 20.8 Payne % (Auto) 8.7 H Eos % (Auto) 0.8 Baso % (Auto) 0.3 Neut # (Auto) 5.6 Lymph # (Auto) 1.7 Payne # (Auto) 0.7 Eos # (Auto) 0.1 Baso # (Auto) 0.0 WBC Differential . Differential Comment Auto diff final PT INR APTT Sodium 143 Potassium 3.5 Chloride 112 H Carbon Dioxide 21.8 Anion Gap 9 BUN 14 Creatinine 0.98 Estimated GFR 71 L Random Glucose 90 Calcium 8.1 L Magnesium Total Creatine Kinase 98 CK-MB (CK-2) Troponin I Less than 0.02 L - Imaging Impressions Chest X-Ray 10/16/17 20:51 CONCLUSION: The lungs are clear. <Damaris Larson - Last Filed: 10/17/17 14:35> - Labs CBC & Chem 7: 07/17/18 13:09 10/17/17 06:00 Labs: Laboratory Results - last 24 hr 10/16/17 10/16/17 10/16/17 21:00 21:00 21:00 WBC 8.8 RBC 3.50 L Hgb 8.3 L Hct 26.0 L MCV 74.3 L MCH 23.7 L MCHC 31.9 L RDW 17.1 Plt Count 313 MPV 7.9 Neut % (Auto) 65.7 Lymph % (Auto) 23.9 Payne % (Auto) 9.3 H Eos % (Auto) 0.8 Baso % (Auto) 0.3 Neut # (Auto) 5.8 Lymph # (Auto) 2.1 Payne # (Auto) 0.8 Eos # (Auto) 0.1 Baso # (Auto) 0.0 WBC Differential . Differential Comment Auto diff final PT 11.9 H INR 1.2 APTT 30.4 H Sodium 142 Potassium 3.8 Chloride 112 H Carbon Dioxide 21.4 Anion Gap 9 BUN 16 Creatinine 1.10 H Estimated GFR 62 L Random Glucose 105 Calcium 8.6 Magnesium 2.0 Total Creatine Kinase 105 CK-MB (CK-2) 1.1 Troponin I Less than 0.02 L 10/17/17 10/17/17 10/17/17 02:45 06:00 06:00 WBC 8.0 RBC 3.42 L Hgb 8.1 L Hct 25.3 L MCV 74.2 L MCH 23.7 L MCHC 31.9 L RDW 16.8 Plt Count 313 MPV 8.0 Neut % (Auto) 69.4 Lymph % (Auto) 20.8 Payne % (Auto) 8.7 H Eos % (Auto) 0.8 Baso % (Auto) 0.3 Neut # (Auto) 5.6 Lymph # (Auto) 1.7 Payne # (Auto) 0.7 Eos # (Auto) 0.1 Baso # (Auto) 0.0 WBC Differential . Differential Comment Auto diff final PT INR APTT Sodium 143 Potassium 3.5 Chloride 112 H Carbon Dioxide 21.8 Anion Gap 9 BUN 14 Creatinine 0.98 Estimated GFR 71 L Random Glucose 90 Calcium 8.1 L Magnesium Total Creatine Kinase 98 CK-MB (CK-2) Troponin I Less than 0.02 L 10/17/17 10/17/17 13:09 13:09 WBC RBC Hgb 8.2 L Hct 25.6 L MCV MCH MCHC RDW Plt Count MPV Neut % (Auto) Lymph % (Auto) Payne % (Auto) Eos % (Auto) Baso % (Auto) Neut # (Auto) Lymph # (Auto) Payne # (Auto) Eos # (Auto) Baso # (Auto) WBC Differential Differential Comment PT INR APTT Sodium Potassium Chloride Carbon Dioxide Anion Gap BUN Creatinine Estimated GFR Random Glucose Calcium Magnesium Total Creatine Kinase 95 CK-MB (CK-2) Troponin I Less than 0.02 L - Imaging Impressions Chest X-Ray 10/16/17 20:51 CONCLUSION: The lungs are clear. Myocardial Perfusion Scan Nuc Med 10/17/17 09:15 CONCLUSION: 1. There is ischemia in the RCA territory and high septal wall to a moderate degree. <Gavin Winkler E - Last Filed: 10/17/17 19:44> Assessment and Plan (1) Epigastric pain Status: Acute Code(s): R10.13 - Epigastric pain (2) Nausea Status: Acute Code(s): R11.0 - Nausea (3) Anemia Status: Acute Code(s): D64.9 - Anemia, unspecified (4) Fecal occult blood test positive Status: Acute Code(s): R19.5 - Other fecal abnormalities - Plan Assessment: - Anemia with Hemoccult positive stools Pt reports intermittent blood in her stool for the past couple months, states sometimes it is dark red and sometimes bright red. Reports weight loss, but states this is intentional, has been eating healthier and working out since her heart attack in March. Denies family history of colon cancer. Pts hgb in May was 10.6, currently 8.1- Last EGD and colonoscopy early last year with Dr. Cohen in [place], states the prep was so poor with her colonoscopy that they were unable to do the procedures and reports a normal EGD. Complaints of epigastric pain for the past few months, intermittent, worse on an empty stomach. Also some nausea, denies emesis. Denies ETOH, smoking, NSAID use. On Brilinta (last dose was yesterday morning ) and ASA for cardiac stent. - Chest pain- under L breast radiating down L arm, intermittent two days ago became constant yesterday, described as sharp, worse with activity. Associated SOB with activity and easy fatigability. History of LAD stent placed in March, cath in April revealed patent stent , noted to possibly be costochondritis Discussed with Dr. Dixon, states pt is cleared for GI procedures Plan: EGD and colonoscopy tomorrow Obtain consent Clear liquids today Soap suds enema x 2 today prior to starting prep Golytely NPO after MN Monitor H/H Transfuse as needed Hold Brilinta Further recommendations based on clinical course and results of above Pt has been seen and examined by myself and Dr. Winkler and this note is written on his behalf <Damaris Larson - Last Filed: 10/17/17 14:35> (1) Epigastric pain Status: Acute Code(s): R10.13 - Epigastric pain (2) Nausea Status: Acute Code(s): R11.0 - Nausea (3) Anemia Status: Acute Code(s): D64.9 - Anemia, unspecified (4) Fecal occult blood test positive Status: Acute Code(s): R19.5 - Other fecal abnormalities - Attending Attestation Patient seen and examined agree with above Continue with current supportive care Monitor labs Plan on EGD with colonoscopy tomorrow <Gavin Winkler - Last Filed: 10/17/17 19:44> <Damaris Larson - Last Filed: 10/17/17 14:35> (3) Anemia Qualifiers: Anemia type: iron deficiency Iron deficiency anemia type: unspecified iron deficiency Qualified Code(s): D50.9 - Iron deficiency anemia, unspecified <Gavin Winkler - Last Filed: 10/17/17 19:44> (3) Anemia Qualifiers: Anemia type: iron deficiency Iron deficiency anemia type: unspecified iron deficiency Qualified Code(s): D50.9 - Iron deficiency anemia, unspecified
[2017-10-17] MEDS ORDERED: [UNRECOGNIZED DRUG - OTHER] PO SCH (09:00)
[2017-10-17] MEDS ORDERED: CITRIC ACID PO SCH (09:00)
[2017-10-17] MEDS ORDERED: POTASSIUM BICARBONATE PO SCH (09:00)
--- NOTE | 2017-10-17 09:48 | MB ---
cc: Jasper Dixon MD DATE: 10/17/2017 REASON FOR CONSULTATION: Chest syndrome. HISTORY OF PRESENT ILLNESS: Fara Rondon is a 57-year-old female who is well known to me. She has had a chronic chest pain. I first picked her up for chest pain just before 2016. It did not sound typical of ischemia, but she had abnormal nuclear stress test and then I did a catheterization, which showed single vessel disease with an abnormal flow reserve. I ended up stenting her LAD. This was 03/25/2017. It had no impact on her chest pain, which I thought was atypical right from the get go. She then came back in with chest pain. I repeated her heart catheterization 04/16/2017. The original catheterization was 03/25/2017. I did the stent from the radial approach. I used an XB 3.5 guide. I used a 3.0 x 22 mm Timothy stent postdilated with a 3.5 mm noncompliant balloon to 16 atmospheres distally and 20 atmospheres proximally with excellent results. On her last catheterization, which was 04/16/2017, I did this radially and imaged the LAD with a 3.5 Henri. The stent was widely patent. She had no other significant disease. Circumflex had about 30% irregularities. Right coronary artery had about 10% irregularities. She continues to have sharp chest pain and of note has had chest wall tenderness since the first time I met her. She has chest wall tenderness even now. What is different now, however, is that there are some heme positive stool and a decline in her hematocrit. She describes sharp chest pain with some radiation down the left arm occurring anywhere from seconds to minutes. I had just seen her in the office recently and now in that she is admitted. PAST MEDICAL HISTORY: Includes acid reflux, history of hysterectomy, hypertension, hypothyroidism, migraine disease, hypothyroidism. Her chart says she has had a prior heart attack that is not true. Her troponins have never been elevated. Troponins are not elevated this admission either. PAST SURGICAL HISTORY: Includes appendectomy, thyroid surgery, cholecystectomy, LAD stent. FAMILY HISTORY: Positive for CHF and hypertension. SOCIAL HISTORY: Nonsmoker, nondrinker. She is . MEDICATIONS: Charted. PHYSICAL EXAMINATION: GENERAL: This is a morbidly obese, pleasant female. She appears very anxious. VITAL SIGNS: Her weight is listed as 107 kilograms. HEENT: Unremarkable. NECK: No JVD. No bruits. CHEST: Clear to auscultation. CARDIAC: Notable for left chest wall tenderness. He has got no changes. Normal S1, S2. Regular rate and rhythm. No murmurs or gallops. ABDOMEN: Soft, nontender. No masses or organomegaly. EXTREMITIES: No clubbing, cyanosis, or edema. DIAGNOSTIC DATA: EKG and enzymes showed no evidence of ischemia. IMPRESSION: Chronic atypical chest pain. She does, however, have known coronary artery disease. She was stented in March. Her catheterization in April showed the stent with excellent in good order on nuclear stress test at this point. In the meantime, I think it is fine clearing her for GI procedures. She is cleared for upper and lower endoscopy. If she comes to end up needing the catheterization, I will need that information prior to catheterization. At this point, I am doubting ischemia, but will wait to see what the stress test shows. MD OMAR Velazquez/DORIAN , 09:24 AM , 09:47 AM
[2017-10-17] MEDS: amLODIPine 5 MG Tablet PO SCH ×2 (10:23→22:09)
[2017-10-17] MEDS: Metoprolol Tartrate 50 MG Tablet PO SCH ×3 (10:23→19:36)
[2017-10-17] MEDS: Acetaminophen 325 MG Tablet PO PRN (10:28)
[2017-10-17] MEDS: Sod Chloride 0.9% Inj 1,000 ML IV.CONT SCH ×2 (11:28→20:03)
[2017-10-17 13:24] LABS: Hematocrit 25.6 % (35.0-46.0); Hemoglobin 8.2 gm/dL (11.6-15.3)
[2017-10-17 14:00] LABS: Creatine Kinase 95 U/L (26-192)
[2017-10-17] MEDS ORDERED: Regadenoson Inj 0.4 MG/5 ML Syringe IV.PUSH ONE (15:04)
--- NOTE | 2017-10-17 17:13 | NM ---
EXAM DATE: 10/17/2017 4:51 PM EDT AGE/SEX: 57 years / Female INDICATIONS:Angina. . Chest pain. CLINICAL DATA: This is the patient's initial encounter. Patient reports that signs and symptoms have been present for 1 day and indicates a pain score of 0/10. MEDICAL/SURGICAL HISTORY: Hypertension. Cardiovascular disease. NV. Angioplasty. Appendectom y. Hysterectomy. COMPARISON: [facility], MYOCARDIAL PERF PHARM SPECT, 03/25/2017. . DOSE: 10.2 mCi Tc 99m Myoview at rest 30.2 mCi [id number] at stress 0.4 mg Lexiscan STRESS SYMPTOMS: Short of breath. EJECTION FRACTION: 52 % TECHNIQUE: The patient underwent pharmacologic stress with infusion of prescribed dose. Continuous ECG tracing was monitored during stress. Gated SPECT imaging was performed after stress and conventi onal SPECT imaging was performed at rest. The examination was performed on a SPECT/CT scanner, both attenuation and non-corrected datasets were reviewed. FINDINGS: Distribution: The maximum perfused segment at stress is in the anterolateral wall. Perfusion Study: The pattern of perfusion at stress demonstrates reduction in perfusion to posterio r basal/inferior wall and parts of the high septal wall demonstrating redistribution the rest to a mo derate degree. Gated Study: There are intact wall motion and wall thickening without hypokinetic or dyskinetic segm ents. The ejection fraction is calculated at 52%. RISK CATEGORY: Intermediate (1-3 % Annual Mortality Rate) CONCLUSION: 1. There is ischemia in the RCA territory and high septal wall to a moderate degree. Electronically signed by: Talisha Sandoval MD 10/17/2017 5:12 PM EDT
[2017-10-17] MEDS ORDERED: Aluminum/Magnesium/Simethacone Susp 30 ML UDC PO ONE (19:30)
[2017-10-17] MEDS: PEG 3350/E-Lyte Soln 4000 ML Bottle PO ONE ×2 (20:03→20:09)
--- NOTE | 2017-10-17 20:22 | ECG ---
Date Performed: 10/17/2017 Time Performed: 09:21:32 PTAGE: 57 years EKG: Sinus rhythm POSSIBLE LEFT ATRIAL ENLARGEMENT NONSPECIFIC ST & T-WAVE ABNORMALITY BORDERLINE ECG PREVIOUS TRACING : 10/16/2017 20.43 No significant change DOCTOR: Kelly Schneider Interpretating Date/Time 10/17/2017 20:21:02
--- NOTE | 2017-10-17 20:54 | ECG ---
Date Performed: 10/16/2017 Time Performed: 20:43:29 PTAGE: 57 years EKG: Sinus rhythm POSSIBLE LEFT ATRIAL ENLARGEMENT NONSPECIFIC T-WAVE ABNORMALITY BORDERLINE ECG PREVIOUS TRACING : 10/16/2017 20.43 No significant change when compared with previous DOCTOR: Kelly Schneider Interpretating Date/Time 10/17/2017 20:52:43
[2017-10-17] MEDS ORDERED: Magnesium Citrate Liq 300 ML Bottle PO ONE (21:00)
[2017-10-17] MEDS: Nortriptyline 25 MG Capsule PO SCH (22:09)
[2017-10-18] MEDS ORDERED: Metoprolol Tartrate 25 MG Tablet PO SCH (03:30)
[2017-10-18] MEDS ORDERED: Chlorhexidine Gluconate 2% 1 Pack (2 Cloths) TOPICAL SCH (03:30)
[2017-10-18] MEDS ORDERED: Insulin NovoLIN Regular Correctional Sugar Inj SQ SCH (03:30)
[2017-10-18] MEDS: Pantoprazole Inj 40 MG Vial IV.PUSH SCH ×2 (03:37→18:13)
[2017-10-18] MEDS ORDERED: Sodium Chlor 0.9% Inj 500 ML IV.SIG SCH (04:00)
[2017-10-18] MEDS: Levothyroxine 112 MCG Tablet PO SCH (05:54)
[2017-10-18] MEDS ORDERED: Magnesium Citrate Liq 300 ML Bottle PO ONE ×2 (06:00→12:00)
[2017-10-18] MEDS: amLODIPine 5 MG Tablet PO SCH ×2 (09:17→21:12)
[2017-10-18] MEDS: Metoprolol Tartrate 50 MG Tablet PO SCH ×3 (09:17→18:12)
--- NOTE | 2017-10-18 10:29 | P.PN ---
Subjective Interval history: Follow up Visit GERD, temporal arteritis, GIB. Patient seen and examined today. Reports she is doing okay. States that she had colonoscopy done previously but she is a poor prep and also had some bowel obstruction. States she is doing okay. Complaints of midepigastric pain and tenderness throughout. Denies SOB/ dyspnea. Denies chest pain, palpitations, headaches, dizziness. Denies fevers, chills, n/v. Denies dysuria. Physical Exam Vital signs: Vital Signs 10/17/17 11:27 10/17/17 20:00 10/17/17 23:35 Temperature 98.7 F 98.3 F Pulse Rate 78 84 89 Respiratory Rate 17 16 16 Blood Pressure 120/69 156/83 H 136/81 Pulse Oximetry 97 98 99 10/18/17 01:27 10/18/17 03:34 10/18/17 05:50 Temperature 97.6 F Pulse Rate 85 85 81 Respiratory Rate 16 Blood Pressure 128/66 102/63 Pulse Oximetry 99 10/18/17 08:00 Temperature 98.0 F Pulse Rate 76 Respiratory Rate 18 Blood Pressure 124/74 Pulse Oximetry 100 Intake & Output 10/17/17 10/18/17 10/18/17 18:59 06:59 18:59 Intake Total 1000 / 1000 Balance 1000 / 1000 Intake: IV 1000 / 1000 NS Inj 1,000 ML @ 100 mls/hr IV 1000 / 1000 .CONT .Q10H [facility] Rx#:[id number] Other: Date of Last Bowel Movement 10/18/17 # Bowel Movements 5 Narrative: GENERAL: This is a well-nourished, well-developed patient, in no apparent distress. SKIN: Warm and dry. HEENT: Normocephalic. Pupils equal round and reactive. Nose without bleeding. Airway patent. NECK: Trachea midline. No JVD. Supple. CARDIOVASCULAR: Regular rate and rhythm without murmurs, gallops, or rubs. RESPIRATORY: Clear to auscultation. Breath sounds equal bilaterally. No wheezes , rales, or rhonchi. GASTROINTESTINAL: Abdomen soft, nondistended. Bowel Sounds hypoactive. Tenderness midepigastric region. MUSCULOSKELETAL: Extremities without clubbing, cyanosis, or edema. NEUROLOGICAL: Awake and alert. Oriented to time, place, person. No focal neuro deficit. Moves all extremities. Normal speech. Results - Labs CBC & Chem 7: 07/17/18 13:09 10/17/17 06:00 Laboratory Results - last 24 hr 10/17/17 10/17/17 13:09 13:09 Hgb 8.2 L Hct 25.6 L Total Creatine Kinase 95 Troponin I Less than 0.02 L - Imaging Impressions Myocardial Perfusion Scan Nuc Med 10/17/17 09:15 CONCLUSION: 1. There is ischemia in the RCA territory and high septal wall to a moderate degree. Assessment and Plan - Assessment (1) Chest pain Code(s): R07.9 - Chest pain, unspecified Status: Acute (2) Anemia Code(s): D64.9 - Anemia, unspecified Status: Acute - Plan 57-year-old female with a history of GERD, hypertension, hypothyroid, [place] presented to the ED with complaints of chest pain. Patient states that her chest pain began today and is constant, 6/10, in the lower left side of her chest with radiation down her right arm with associated nausea, dizziness and shortness of breath. Chest pain, likely secondary to anemia, rule out ACS Troponin 0.02, EKG reviewed and shows some T-wave abnormalities that is new -Serial troponin and EKGs -Consult cardiology known to Dr. Dixon. Cleared for surgery. -Nuclear test showed ischemia RCA, high septal wall -Monitor telemetry -Nitropaste ordered, morphine for chest pain -Hold heparin due to GI bleed GI bleed Hemoglobin 8.3, baseline around 10 -Consult GI for recommendations. Plan for EGD colonoscopy today. -Protonix IV -Follow H&H, transfuse as needed Hypertension, chronic -Resume home medications amlodipine, clonidine, losartan, hydralazine and metoprolol -Monitor vitals Hypothyroidism, chronic -Resume home medications levothyroxine Hyperlipidemia -Resume home medications DVT prophylaxis: SCDs, hold chemical due to GI bleed Code Status: Full Code Discussed Condition With: Patient, nursing Discharge Planning: Plan to DC home when clinically improved (1) Chest pain Qualifiers: Chest pain type: precordial pain Qualified Code(s): R07.2 - Precordial pain (2) Anemia Qualifiers: Anemia type: iron deficiency Iron deficiency anemia type: unspecified iron deficiency Qualified Code(s): D50.9 - Iron deficiency anemia, unspecified
--- NOTE | 2017-10-18 11:22 | P.PNCA ---
Subjective Interval history: Still sharp left chest pain worse with palpation Physical Exam Vital signs: Vital Signs 10/17/17 11:27 10/17/17 20:00 10/17/17 23:35 Temperature 98.7 F 98.3 F Pulse Rate 78 84 89 Respiratory Rate 17 16 16 Blood Pressure 120/69 156/83 H 136/81 Pulse Oximetry 97 98 99 10/18/17 01:27 10/18/17 03:34 10/18/17 05:50 Temperature 97.6 F Pulse Rate 85 85 81 Respiratory Rate 16 Blood Pressure 128/66 102/63 Pulse Oximetry 99 10/18/17 08:00 Temperature 98.0 F Pulse Rate 76 Respiratory Rate 18 Blood Pressure 124/74 Pulse Oximetry 100 Intake & Output 10/17/17 10/18/17 10/18/17 18:59 06:59 18:59 Intake Total 1000 / 1000 Balance 1000 / 1000 Intake: IV 1000 / 1000 NS Inj 1,000 ML @ 100 mls/hr IV 1000 / 1000 .CONT .Q10H [facility] Rx#:[id number] Other: Date of Last Bowel Movement 10/18/17 # Bowel Movements 5 Narrative: Alert, anxious no JVD Chest CTA CV S1S2 RRR Left costochondral joints are tender No edema Assessment and Plan - Assessment (1) Costochondral chest pain Code(s): R07.1 - Chest pain on breathing Status: Acute (2) Stented coronary artery Code(s): Z95.5 - Presence of coronary angioplasty implant and graft Status: Acute Plan: Currently off DAPT due to GIB (3) Coronary artery disease Code(s): I25.10 - Atherosclerotic heart disease of [place] coronary artery without angina pectoris Status: Acute (4) Abnormal nuclear stress test Code(s): R94.39 - Abnormal result of other cardiovascular function study Status: Acute Plan: Results don't make much sense - RCA was nl on 2 cath's within 8 months. - Plan Proceed with GI workup
[2017-10-18] MEDS: Sod Chloride 0.9% Inj 1,000 ML IV.CONT SCH ×3 (11:54→23:23)
[2017-10-18] MEDS ORDERED: Dicyclomine 10 MG Capsule PO ONE (13:00)
--- NOTE | 2017-10-18 14:29 | P.PCN ---
Date of procedure: 10/18/17 Pre-op diagnosis: Anemia, guaiac positive stools Post-op diagnosis: other Procedure: PROCEDURE PERFORMED EGD followed by an incomplete colonoscopy to the sigmoid due to technical difficulty INDICATION FOR PROCEDURE Anemia, guaiac positive stools PROCEDURE: The procedure, risks and benefits were discussed with Patient/POA and informed consent was obtained. Anesthesia sedated Patient with Diprivan. Patient was placed in the left lateral decubitus position. EGD: The Pentax videoscope was introduced through the oropharynx and advanced to the second portion of the duodenum under direct visualization. Retroflexion was performed in the stomach. FINDINGS: The esophagus there was a mild Schatzki ring otherwise the esophagus was unremarkable The stomach there was a small hiatal hernia there was also some residual food in the stomach suggesting gastroparesis otherwise gastric mucosa was unremarkable The duodenum this was normal Colonoscopy: The Pentax videoscope was introduced through the rectum and advanced to mid sigmoid. Retroflexion was performed in the rectum. Colonic prep was good FINDINGS: I was unable to pass the scope past the mid sigmoid lea due to technical difficulty probably an underlying stricture but certainly there was a lot of looping the patient was noted to have diverticulosis in the sigmoid otherwise colonic mucosa was unremarkable and so is retroflexion ESTIMATED BLOOD LOSS: None SPECIMENS REMOVED: None COMPLICATIONS: None IMPRESSION: Mild Schatzki ring Small hiatal hernia Residual food in the stomach probable gastroparesis Diverticulosis Incomplete colonoscopy due to probable sigmoid stricture PLAN: We will proceed with a barium enema Continue with current supportive care Anesthesia: MAC Surgeon: Gavin Winkler Pathology: none sent Condition: stable Disposition: floor
[2017-10-18] MEDS: Acetaminophen 325 MG Tablet PO PRN (21:10)
[2017-10-18] MEDS: Nortriptyline 25 MG Capsule PO SCH (21:12)
[2017-10-19] MEDS ORDERED: Morphine Inj 4 MG/ML Vial IV.PUSH ONE (01:04)
[2017-10-19] MEDS: Pantoprazole Inj 40 MG Vial IV.PUSH SCH ×2 (04:08→16:10)
[2017-10-19] MEDS: Levothyroxine 112 MCG Tablet PO SCH (06:02)
--- NOTE | 2017-10-19 10:20 | P.PNGI ---
Subjective Interval history: Pt complaining of some abdominal discomfort today. Has had loose BMs after colonoscopy. Denies nausea and vomiting. She is going for barium enema this morning due to incomplete colonoscopy. <Damaris Larson - Last Filed: 10/19/17 16:38> Physical Exam Vital signs: Vital Signs 10/18/17 11:44 10/18/17 12:00 10/18/17 14:42 Temperature 98.2 F 97.3 F L Pulse Rate 83 73 75 Respiratory Rate 18 18 Blood Pressure 119/71 114/70 Pulse Oximetry 95 100 10/18/17 16:00 10/18/17 17:12 10/18/17 20:00 Temperature 98.5 F 98.3 F Pulse Rate 74 80 73 Respiratory Rate 16 16 Blood Pressure 101/59 L 117/62 Pulse Oximetry 99 99 10/18/17 21:00 10/19/17 00:00 10/19/17 03:08 Temperature 97.6 F Pulse Rate 71 68 Respiratory Rate 16 15 Blood Pressure 128/72 Pulse Oximetry 98 10/19/17 04:00 10/19/17 08:00 Temperature 97.8 F 98.3 F Pulse Rate 73 85 Respiratory Rate 16 18 Blood Pressure 120/56 L 126/80 Pulse Oximetry 97 99 Intake & Output 10/18/17 10/19/17 10/19/17 18:59 06:59 18:59 Intake Total 1500 / 1500 1000 / 1000 Balance 1500 / 1500 1000 / 1000 Intake: IV 1000 / 1000 1000 / 1000 NS Inj 1,000 ML @ 100 mls/hr IV 1000 / 1000 1000 / 1000 .CONT .Q10H [facility] Rx#:[id number] Oral 500 / 500 Other: Other Intake Source Saline Solution Date of Last Bowel Movement 10/18/17 - Constitutional no acute distress - Routine HEENT Exam Head: Present: normocephalic, atraumatic - Routine Respiratory Exam Absent: accessory muscle use - Routine Cardiovascular Exam Present: RRR - Routine Abdominal Exam Present: soft, normoactive bowel sounds. Absent: tenderness - Routine Skin Exam Present: dry, warm - Routine Neurological Exam Present: alert, oriented X3 <Damaris Larson - Last Filed: 10/19/17 16:38> Vital signs: Vital Signs 10/19/17 00:00 10/19/17 03:08 10/19/17 04:00 Temperature 97.6 F 97.8 F Pulse Rate 68 73 Respiratory Rate 16 15 16 Blood Pressure 128/72 120/56 L Pulse Oximetry 98 97 10/19/17 07:00 10/19/17 08:00 10/19/17 11:09 Temperature 98.3 F 98.9 F Pulse Rate 74 85 83 Respiratory Rate 18 18 Blood Pressure 126/80 147/95 H Pulse Oximetry 99 99 10/19/17 15:00 10/19/17 15:12 10/19/17 19:09 Temperature 98 F Pulse Rate 79 80 Respiratory Rate 18 16 Blood Pressure 125/77 Pulse Oximetry 98 10/19/17 20:00 Temperature 98.6 F Pulse Rate 80 Respiratory Rate 16 Blood Pressure 123/77 Pulse Oximetry 98 Intake & Output 10/19/17 10/19/17 10/20/17 06:59 18:59 06:59 Intake Total 1000 / 1000 2200 / 2200 Balance 1000 / 1000 2200 / 2200 Intake: IV 1000 / 1000 1000 / 1000 NS Inj 1,000 ML @ 100 mls/hr IV 1000 / 1000 1000 / 1000 .CONT .Q10H [facility] Rx#:[id number] Oral 1200 / 1200 Other: # Voids 5 Date of Last Bowel Movement 10/18/17 10/18/17 # Bowel Movements 3 <Gavin Winkler E - Last Filed: 10/19/17 23:19> Results - Labs CBC & Chem 7: 10/17/17 13:09 10/17/17 06:00 <Damaris Larson - Last Filed: 10/19/17 16:38> - Labs CBC & Chem 7: 10/17/17 13:09 10/17/17 06:00 - Imaging Impressions Barium Enema w/ Air Contrast, therapeutic 10/19/17 00:00 CONCLUSION: 1. Incomplete barium enema with nonfilling of the ascending colon. 2. Numerous diverticula throughout the evaluated colon especially in the descending and sigmoid segments. 3. No obstructing or constricting lesions identified from the rectum to the proximal transverse colon. 4. No large polypoid defects were identified. 5. Ascending colon and cecum were not evaluated. 6. CT Colonography recommended to exclude obstructing lesion in the ascending colon this patient with a history of blood loss and anemia. <Gavin Winkler E - Last Filed: 10/19/17 23:19> Assessment and Plan (1) Epigastric pain Status: Acute Code(s): R10.13 - Epigastric pain (2) Nausea Status: Acute Code(s): R11.0 - Nausea (3) Anemia Status: Acute Code(s): D64.9 - Anemia, unspecified (4) Fecal occult blood test positive Status: Acute Code(s): R19.5 - Other fecal abnormalities - Plan Assessment: - Anemia with Hemoccult positive stools Pt reports intermittent blood in her stool for the past couple months, states sometimes it is dark red and sometimes bright red. Reports weight loss, but states this is intentional, has been eating healthier and working out since her heart attack in March. Denies family history of colon cancer. Pts hgb in May was 10.6, currently 8.1- Last EGD and colonoscopy early last year with Dr. Cohen in [place], states the prep was so poor with her colonoscopy that they were unable to do the procedures and reports a normal EGD. Complaints of epigastric pain for the past few months, intermittent, worse on an empty stomach. Also some nausea, denies emesis. Denies ETOH, smoking, NSAID use. On Brilinta (last dose was yesterday morning ) and ASA for cardiac stent. - Chest pain- under L breast radiating down L arm, intermittent two days ago became constant yesterday, described as sharp, worse with activity. Associated SOB with activity and easy fatigability. History of LAD stent placed in March, cath in April revealed patent stent , noted to possibly be costochondritis Discussed with Dr. Dixon, states pt is cleared for GI procedures (10/19 Pt S/P EGD and colonoscopy yesterday- EGD --> Mild Schatzki ring, small hiatal hernia, residual food in the stomach , probably gastroparesis. Colonoscopy --> Diverticulosis, incomplete due to probable sigmoid stricture H/H stable overnight. Barium enema --> . Incomplete barium enema with nonfilling of the ascending colon. Numerous diverticula throughout the evaluated colon especially in the descending and sigmoid segments. No obstructing or constricting lesions identified from the rectum to the proximal transverse colon. No large polypoid defects were identified. Ascending colon and cecum were not evaluated. CT Colonography recommended to exclude obstructing lesion in the ascending colon this patient with a history of blood loss and anemia. Spoke with radiology- CT colonography is not available inpatient and has to be done on an outpatient basis. At this time anticoagulation to be decided on with caution, risk vs benefit, unable to rule out source of GIB. Plan: Advance diet GI will sign off As noted above, pt to have CT colonography outpatient as soon as possible Anticoagulation with caution, risk vs benefit- at this time can not rule out GIB as source of anemia Have pt follow up with GI Afterd Pt has been seen and examined by myself and Dr. Winkler and this note is written on his behalf <Damaris Larson - Last Filed: 10/19/17 16:38> (1) Epigastric pain Status: Acute Code(s): R10.13 - Epigastric pain (2) Nausea Status: Acute Code(s): R11.0 - Nausea (3) Anemia Status: Acute Code(s): D64.9 - Anemia, unspecified (4) Fecal occult blood test positive Status: Acute Code(s): R19.5 - Other fecal abnormalities - Attending Attestation Patient seen and examined Agree with above Continue with current supportive care Monitor labs Incomplete barium enema CT colonoscopy not available as an inpatient this is to be done on outpatient basis I would proceed very cautiously with anticoagulation at this point We will discuss further the results of the barium enema with radiology regarding the possibility of sigmoid stricture <Gavin Winkler E - Last Filed: 10/19/17 23:19> <Damaris Larson - Last Filed: 10/19/17 16:38> (3) Anemia Qualifiers: Anemia type: iron deficiency Iron deficiency anemia type: unspecified iron deficiency Qualified Code(s): D50.9 - Iron deficiency anemia, unspecified <Gavin Winkler E - Last Filed: 10/19/17 23:19> (3) Anemia Qualifiers: Anemia type: iron deficiency Iron deficiency anemia type: unspecified iron deficiency Qualified Code(s): D50.9 - Iron deficiency anemia, unspecified
[2017-10-19] MEDS: Metoprolol Tartrate 50 MG Tablet PO SCH ×3 (11:35→19:09)
[2017-10-19] MEDS: amLODIPine 5 MG Tablet PO SCH ×2 (11:36→20:25)
[2017-10-19] MEDS: Acetaminophen 325 MG Tablet PO PRN (11:40)
--- NOTE | 2017-10-19 11:56 | FL ---
EXAM DATE: 10/19/2017 11:07 AM EDT AGE/SEX: 57 years / Female INDICATIONS: Anemia, incomplete colonoscopy, possible sigmoid stricture. CLINICAL DATA: This is the patient's subsequent encounter. Patient reports that signs and symptoms h ave been present for 2 days and indicates a pain score of 4/10. MEDICAL/SURGICAL HISTORY: Hypothyroidism. Bowel obstruction. Hypertension. Myocardial infarctio n. CAD. GERD. . Cholecystectomy. Appendectomy. Cardiac stent. COMPARISON: No prior exams available for comparison. FLUORO TIME: 6 minutes. IMAGE COUNT: 28 FINDINGS: A balloon tip catheter was inserted into the rectum, and air and barium were instilled under fluorosc opic control. Barium flows freely to transverse colon without obstruction. The colon is markedly red undant. The ascending colon could not be filled with contrast. The colon is of a normal diameter. No debris is identified throughout the transverse colon. There are no fixed polypoid filling defects or annular constricting lesions identified in the rectum to the proximal sigmoid colon. Numerous diverti cula are seen throughout the descending and white colon.. CONCLUSION: 1. Incomplete barium enema with nonfilling of the ascending colon. 2. Numerous diverticula throughout the evaluated colon especially in the descending and sigmoid segm ents. 3. No obstructing or constricting lesions identified from the rectum to the proximal transverse colo n. 4. No large polypoid defects were identified. 5. Ascending colon and cecum were not evaluated. 6. CT Colonography recommended to exclude obstructing lesion in the ascending colon this patient wit h a history of blood loss and anemia. Electronically signed by: Dru Bo MD 10/19/2017 11:55 AM EDT
--- NOTE | 2017-10-19 16:03 | P.PN ---
Subjective Interval history: Follow up Visit GERD, temporal arteritis, GIB. Patient seen and examined today. States abdomen is sore due to manipulation. States it was unsuccessful barium enema. Denies SOB/ dyspnea. Denies chest pain, palpitations, headaches , dizziness. Denies fevers, chills, n/v. Denies dysuria Physical Exam Vital signs: Vital Signs 10/18/17 17:12 10/18/17 20:00 10/18/17 21:00 Temperature 98.3 F Pulse Rate 80 73 71 Respiratory Rate 16 Blood Pressure 117/62 Pulse Oximetry 99 10/19/17 00:00 10/19/17 03:08 10/19/17 04:00 Temperature 97.6 F 97.8 F Pulse Rate 68 73 Respiratory Rate 16 15 16 Blood Pressure 128/72 120/56 L Pulse Oximetry 98 97 10/19/17 08:00 10/19/17 11:09 10/19/17 15:12 Temperature 98.3 F 98.9 F 98 F Pulse Rate 85 83 80 Respiratory Rate 18 18 18 Blood Pressure 126/80 147/95 H 125/77 Pulse Oximetry 99 99 98 Intake & Output 10/18/17 10/19/17 10/19/17 18:59 06:59 18:59 Intake Total 1500 / 1500 1000 / 1000 Balance 1500 / 1500 1000 / 1000 Intake: IV 1000 / 1000 1000 / 1000 NS Inj 1,000 ML @ 100 mls/hr IV 1000 / 1000 1000 / 1000 .CONT .Q10H [facility] Rx#:[id number] Oral 500 / 500 Other: Other Intake Source Saline Solution Date of Last Bowel Movement 10/18/17 10/18/17 Narrative: GENERAL: This is an obese, well-developed patient, in no apparent distress. SKIN: Warm and dry. HEENT: Normocephalic. Pupils equal round and reactive. Nose without bleeding. Airway patent. NECK: Trachea midline. No JVD. Supple. CARDIOVASCULAR: Regular rate and rhythm without murmurs, gallops, or rubs. RESPIRATORY: Clear to auscultation. Breath sounds equal bilaterally. No wheezes , rales, or rhonchi. GASTROINTESTINAL: Abdomen soft, nondistended, obese. Bowel Sounds hypoactive. Tenderness to palpate right lower quadrant. MUSCULOSKELETAL: Extremities without clubbing, cyanosis, or edema. NEUROLOGICAL: Awake and alert. Oriented to time, place, person. No focal neuro deficit. Moves all extremities. Normal speech. Results - Labs CBC & Chem 7: 10/20/17 06:40 10/17/17 06:00 - Imaging Impressions Barium Enema w/ Air Contrast, therapeutic 10/19/17 00:00 CONCLUSION: 1. Incomplete barium enema with nonfilling of the ascending colon. 2. Numerous diverticula throughout the evaluated colon especially in the descending and sigmoid segments. 3. No obstructing or constricting lesions identified from the rectum to the proximal transverse colon. 4. No large polypoid defects were identified. 5. Ascending colon and cecum were not evaluated. 6. CT Colonography recommended to exclude obstructing lesion in the ascending colon this patient with a history of blood loss and anemia. Assessment and Plan - Assessment (1) Chest pain Code(s): R07.9 - Chest pain, unspecified Status: Acute (2) Anemia Code(s): D64.9 - Anemia, unspecified Status: Acute - Plan 57-year-old female with a history of GERD, hypertension, hypothyroid, [place] presented to the ED with complaints of chest pain. Patient states that her chest pain began today and is constant, 6/10, in the lower left side of her chest with radiation down her right arm with associated nausea, dizziness and shortness of breath. Chest pain, likely secondary to anemia, rule out ACS Troponin 0.02, EKG reviewed and shows some T-wave abnormalities that is new -Serial troponin and EKGs -Consult cardiology known to Dr. Dixon. Cleared for surgery. -Nuclear test showed ischemia RCA, high septal wall -Monitor telemetry -Nitropaste ordered, morphine for chest pain -Hold heparin due to GI bleed GI bleed Hemoglobin 8.3, baseline around 10 -Consult GI for recommendations. Recommends, anticoagulation with caution, risk vs benefit- at this time can not rule out GIB as source of anemia -Protonix IV -Follow H&H, transfuse as needed -EGD showed Mild Schatzki ring, small hiatal hernia, residual food in the stomach, probably gastroparesis. -Colonoscopy showed Diverticulosis, incomplete due to probable sigmoid stricture -Barium enema, Incomplete barium enema with nonfilling of the ascending colon. Numerous diverticula throughout the evaluated colon especially in the descending and sigmoid segments. No obstructing or constricting lesions identified from the rectum to the proximal transverse colon. No large polypoid defects were identified. Ascending colon and cecum were not evaluated. CT Colonography recommended to exclude obstructing lesion in the ascending colon this patient with a history of blood loss and anemia. CT colonography outpatient needed. Hypertension, chronic -Resume home medications amlodipine, clonidine, losartan, hydralazine and metoprolol -Monitor vitals Hypothyroidism, chronic -Resume home medications levothyroxine Hyperlipidemia -Resume home medications DVT prophylaxis: SCDs, hold chemical due to GI bleed Code Status: Full Code Discussed Condition With: Patient, nursing Discharge Planning: Plan to DC home when clinically improved (1) Chest pain Qualifiers: Chest pain type: precordial pain Qualified Code(s): R07.2 - Precordial pain (2) Anemia Qualifiers: Anemia type: iron deficiency Iron deficiency anemia type: unspecified iron deficiency Qualified Code(s): D50.9 - Iron deficiency anemia, unspecified
[2017-10-19] MEDS ORDERED: Morphine Sulfate Inj 2 MG/ML Vial IV.PUSH PRN (16:04)
[2017-10-19] MEDS: Sod Chloride 0.9% Inj 1,000 ML IV.CONT SCH (16:06)
--- NOTE | 2017-10-19 17:40 | P.PNCA ---
Subjective Interval history: Chest pain is better, no new complaints Physical Exam Vital signs: Vital Signs 10/18/17 20:00 10/18/17 21:00 10/19/17 00:00 Temperature 98.3 F 97.6 F Pulse Rate 73 71 68 Respiratory Rate 16 16 Blood Pressure 117/62 128/72 Pulse Oximetry 99 98 10/19/17 03:08 10/19/17 04:00 10/19/17 07:00 Temperature 97.8 F Pulse Rate 73 74 Respiratory Rate 15 16 Blood Pressure 120/56 L Pulse Oximetry 97 10/19/17 08:00 10/19/17 11:09 10/19/17 15:12 Temperature 98.3 F 98.9 F 98 F Pulse Rate 85 83 80 Respiratory Rate 18 18 Blood Pressure 126/80 147/95 H 125/77 Pulse Oximetry 99 99 98 Intake & Output 10/18/17 10/19/17 10/19/17 18:59 06:59 18:59 Intake Total 1500 / 1500 1000 / 1000 1000 / 1000 Balance 1500 / 1500 1000 / 1000 1000 / 1000 Intake: IV 1000 / 1000 1000 / 1000 1000 / 1000 NS Inj 1,000 ML @ 100 mls/hr IV 1000 / 1000 1000 / 1000 1000 / 1000 .CONT .Q10H [facility] Rx#:[id number] Oral 500 / 500 Other: Other Intake Source Saline Solution Date of Last Bowel Movement 10/18/17 10/18/17 Narrative: Obese AAF in NAD Chest Clear CV S1S2 RRR Abd soft Ext no edema Left chest wall tenderness. Assessment and Plan - Assessment (1) Costochondral chest pain Code(s): R07.1 - Chest pain on breathing Status: Acute (2) Stented coronary artery Code(s): Z95.5 - Presence of coronary angioplasty implant and graft Status: Acute Plan: Currently off DAPT due to GIB. Will restart ASA (3) Coronary artery disease Code(s): I25.10 - Atherosclerotic heart disease of [place] coronary artery without angina pectoris Status: Acute Plan: Sx's are very atypical - doubt angina (4) Abnormal nuclear stress test Code(s): R94.39 - Abnormal result of other cardiovascular function study Status: Acute Plan: Results don't make much sense - RCA was nl on 2 cath's within 8 months. Medical therapy for now - Plan Proceed with GI workup, CT pending
[2017-10-19] MEDS: Nortriptyline 25 MG Capsule PO SCH (20:23)
[2017-10-19 23:49] VITALS: RESP 16; O2SAT 96
[2017-10-20] MEDS: Sod Chloride 0.9% Inj 1,000 ML IV.CONT SCH ×2 (03:55→06:21)
[2017-10-20] MEDS: Pantoprazole Inj 40 MG Vial IV.PUSH SCH (04:00)
[2017-10-20] MEDS: Levothyroxine 112 MCG Tablet PO SCH (05:24)
[2017-10-20 07:56] LABS: Hematocrit 26.9 % (35.0-46.0); Hemoglobin 8.6 gm/dL (11.6-15.3)
[2017-10-20 08:49] VITALS: BP 133/81; PULSE 84; TEMP 97.4
[2017-10-20] MEDS: Metoprolol Tartrate 50 MG Tablet PO SCH (09:33)
[2017-10-20] MEDS: amLODIPine 5 MG Tablet PO SCH (09:34)
--- NOTE | 2017-10-20 10:24 | P.PNGI ---
Subjective Interval history: Patient is resting in the bed and still complains of some dull abdominal pain and some distention States bowel movement yesterday Current hemoglobin 8.6 No obvious nausea or vomiting or dysphasia this a.m. Patient states small bowel obstructions in 1996 and 2007 <Juliana Carrillo - Last Filed: 10/20/17 10:17> Physical Exam Vital signs: Vital Signs 10/19/17 11:09 10/19/17 15:00 10/19/17 15:12 Temperature 98.9 F 98 F Pulse Rate 83 79 80 Respiratory Rate 18 18 Blood Pressure 147/95 H 125/77 Pulse Oximetry 99 98 10/19/17 19:09 10/19/17 20:00 10/19/17 23:20 Temperature 98.6 F Pulse Rate 80 Respiratory Rate 16 16 15 Blood Pressure 123/77 Pulse Oximetry 98 10/19/17 23:26 10/19/17 23:47 10/20/17 08:00 Temperature 98.5 F 97.4 F L Pulse Rate 93 H 97 H 84 Respiratory Rate 16 16 Blood Pressure 124/74 133/81 Pulse Oximetry 96 Intake & Output 10/19/17 10/20/17 10/20/17 18:59 06:59 18:59 Intake Total 2200 / 2200 800 / 800 Balance 2200 / 2200 800 / 800 Intake: IV 1000 / 1000 800 / 800 NS Inj 1,000 ML @ 100 mls/hr IV 1000 / 1000 800 / 800 .CONT .Q10H [facility] Rx#:[id number] Oral 1200 / 1200 Other: # Voids 5 Date of Last Bowel Movement 10/18/17 # Bowel Movements 3 - Constitutional mild distress, morbidly obese - Routine HEENT Exam Head: Present: normocephalic, atraumatic Eye: Present: EOMI ENT: Present: mucous membranes dry - Routine Neck Exam Present: supple (Obese) - Routine Respiratory Exam Present: CTA bilaterally (Even, unlabored, low volumes) - Routine Cardiovascular Exam Present: RRR - Routine Abdominal Exam Present: tenderness (Round, very soft bowel sounds lower quadrants greater than upper, generalized dull discomfort to light palpation), distended (Mild) - Routine Skin Exam Present: intact - Routine Neurological Exam Present: alert (Answer simple questions) <Juliana Carrillo - Last Filed: 07/20/18 10:17> Vital signs: Vital Signs 10/19/17 11:09 10/19/17 15:00 10/19/17 15:12 Temperature 98.9 F 98 F Pulse Rate 83 79 80 Respiratory Rate 18 18 Blood Pressure 147/95 H 125/77 Pulse Oximetry 99 98 10/19/17 19:09 10/19/17 20:00 10/19/17 23:20 Temperature 98.6 F Pulse Rate 80 Respiratory Rate 16 16 15 Blood Pressure 123/77 Pulse Oximetry 98 10/19/17 23:26 10/19/17 23:47 10/20/17 08:00 Temperature 98.5 F 97.4 F L Pulse Rate 93 H 97 H 84 Respiratory Rate 16 16 Blood Pressure 124/74 133/81 Pulse Oximetry 96 Intake & Output 10/19/17 10/20/17 10/20/17 18:59 06:59 18:59 Intake Total 2200 / 2200 800 / 800 Balance 2200 / 2200 800 / 800 Intake: IV 1000 / 1000 800 / 800 NS Inj 1,000 ML @ 100 mls/hr IV 1000 / 1000 800 / 800 .CONT .Q10H [facility] Rx#:[id number] Oral 1200 / 1200 Other: # Voids 5 Date of Last Bowel Movement 10/18/17 # Bowel Movements 3 <Gavin Winkler - Last Filed: 10/20/17 10:44> Results - Labs CBC & Chem 7: 10/20/17 06:40 10/17/17 06:00 Laboratory Results - last 24 hr 10/20/17 10/20/17 05:31 06:40 Hgb 8.6 L Hct 26.9 L POC Glucose 104 - Imaging Impressions Barium Enema w/ Air Contrast, therapeutic 10/19/17 00:00 CONCLUSION: 1. Incomplete barium enema with nonfilling of the ascending colon. 2. Numerous diverticula throughout the evaluated colon especially in the descending and sigmoid segments. 3. No obstructing or constricting lesions identified from the rectum to the proximal transverse colon. 4. No large polypoid defects were identified. 5. Ascending colon and cecum were not evaluated. 6. CT Colonography recommended to exclude obstructing lesion in the ascending colon this patient with a history of blood loss and anemia. <Juliana Carrillo - Last Filed: 10/20/17 10:17> - Labs CBC & Chem 7: 10/20/17 06:40 10/17/17 06:00 Laboratory Results - last 24 hr 10/20/17 10/20/17 05:31 06:40 Hgb 8.6 L Hct 26.9 L POC Glucose 104 - Imaging Impressions Barium Enema w/ Air Contrast, therapeutic 10/19/17 00:00 CONCLUSION: 1. Incomplete barium enema with nonfilling of the ascending colon. 2. Numerous diverticula throughout the evaluated colon especially in the descending and sigmoid segments. 3. No obstructing or constricting lesions identified from the rectum to the proximal transverse colon. 4. No large polypoid defects were identified. 5. Ascending colon and cecum were not evaluated. 6. CT Colonography recommended to exclude obstructing lesion in the ascending colon this patient with a history of blood loss and anemia. <Gavin Winkler - Last Filed: 10/20/17 10:44> Assessment and Plan (1) Epigastric pain Status: Acute Code(s): R10.13 - Epigastric pain (2) Nausea Status: Acute Code(s): R11.0 - Nausea (3) Anemia Status: Acute Code(s): D64.9 - Anemia, unspecified (4) Fecal occult blood test positive Status: Acute Code(s): R19.5 - Other fecal abnormalities - Plan Assessment: - Anemia with Hemoccult positive stools Pt reports intermittent blood in her stool for the past couple months, states sometimes it is dark red and sometimes bright red. Reports weight loss, but states this is intentional, has been eating healthier and working out since her heart attack in March. Denies family history of colon cancer. Pts hgb in May was 10.6, currently 8.1- Last EGD and colonoscopy early last year with Dr. Cohen in [place], states the prep was so poor with her colonoscopy that they were unable to do the procedures and reports a normal EGD. Complaints of epigastric pain for the past few months, intermittent, worse on an empty stomach. Also some nausea, denies emesis. Denies ETOH, smoking, NSAID use. On Brilinta (last dose was yesterday morning ) and ASA for cardiac stent. - Chest pain- under L breast radiating down L arm, intermittent two days ago became constant yesterday, described as sharp, worse with activity. Associated SOB with activity and easy fatigability. History of LAD stent placed in March, cath in April revealed patent stent , noted to possibly be costochondritis Discussed with Dr. Dixon, states pt is cleared for GI procedures (10/19 Pt S/P EGD and colonoscopy yesterday- EGD --> Mild Schatzki ring, small hiatal hernia, residual food in the stomach , probably gastroparesis. Colonoscopy --> Diverticulosis, incomplete due to probable sigmoid stricture H/H stable overnight. Barium enema --> . Incomplete barium enema with nonfilling of the ascending colon. Numerous diverticula throughout the evaluated colon especially in the descending and sigmoid segments. No obstructing or constricting lesions identified from the rectum to the proximal transverse colon. No large polypoid defects were identified. Ascending colon and cecum were not evaluated. CT Colonography recommended to exclude obstructing lesion in the ascending colon this patient with a history of blood loss and anemia. Spoke with radiology- CT colonography is not available inpatient and has to be done on an outpatient basis. At this time anticoagulation to be decided on with caution, risk vs benefit, unable to rule out source of GIB. 10/20/2017, patient states she is still having some mild mid and upper abdominal discomfort at rest and to light palpation. Barium enema results noted with no obstructing or constricting lesions. Patient does note history of constipation and discussed plan with fiber, probiotics, MiraLAX and hydration. Also discussed increased activity and walking and diet modification. Patient notes bowel movement yesterday without any obvious blood patient denies any current nausea, vomiting, or dysphasia. From a GI standpoint patient needs to monitor bowel regimen and continue activity. Current hemoglobin 8.6 Plan: Diet per attending and as tolerated CT colonography as outpatient Monitor labs Supportive care Health maintenance with activity hydration and BM every 1-3 days. Bowel regimen Fiber supplements, probiotics Patient seen per myself and Dr. Winkler, note was written on his behalf <Juliana Carrillo - Last Filed: 10/20/17 10:17> (1) Epigastric pain Status: Acute Code(s): R10.13 - Epigastric pain (2) Nausea Status: Acute Code(s): R11.0 - Nausea (3) Anemia Status: Acute Code(s): D64.9 - Anemia, unspecified (4) Fecal occult blood test positive Status: Acute Code(s): R19.5 - Other fecal abnormalities - Attending Attestation Patient seen and examined Agree with above Continue current supportive care Monitor labs Follow-up with GI post discharge CT colonoscopy as an outpatient Not much to add from a GI standpoint we will sign off <Gavin Winkler E - Last Filed: 10/20/17 10:44> <Juliana Carrillo M - Last Filed: 10/20/17 10:17> (3) Anemia Qualifiers: Anemia type: iron deficiency Iron deficiency anemia type: unspecified iron deficiency Qualified Code(s): D50.9 - Iron deficiency anemia, unspecified <Gavin Winkler E - Last Filed: 10/20/17 10:44> (3) Anemia Qualifiers: Anemia type: iron deficiency Iron deficiency anemia type: unspecified iron deficiency Qualified Code(s): D50.9 - Iron deficiency anemia, unspecified
--- NOTE | 2017-10-20 10:31 | P.DS ---
<Eileen Lilly - Last Filed: 10/20/17 16:37> Date of admission: 10/17/17 01:23 Primary care physician: PROVIDER NON STAFF Attending physician on discharge: Cheikh Marcelino Anticipated date of discharge: 10/20/17 Brief History from admission: 57-year-old female with a history of GERD, hypertension, hypothyroid, [place] presented to the ED with complaints of chest pain. Patient states that her chest pain began today and is constant, 6/10, in the lower left side of her chest with radiation down her right arm with associated nausea, dizziness and shortness of breath. She was last seen in March 2017 and had a cardiac cath with stent placement by Dr. Dixon. She states she had just followed up with Dr. Dixon in the office and there is no changes to her EKG and no chest pain at this time. She denies any associated fevers or chills. A drop in hemoglobin was noted by the ER physician so a rectal exam was performed and patient was found to be Hemoccult positive. She does complain of intermittent rectal bleeding from time to time, has unable to have a colonoscopy done in the past due to an adequate prepping. She denies any hemorrhoids. She does state that her abdomen is mildly distended but denies any change in bowel movements, last BM was this morning. DS: Diagnosis - Discharge Diagnosis (1) Chest pain Status: Acute (2) Anemia Status: Acute DS: Summary Hospital Course: 57-year-old female with a history of GERD, hypertension, hypothyroid, [place] presented to the ED with complaints of chest pain. Patient states that her chest pain began today and is constant, 6/10, in the lower left side of her chest with radiation down her right arm with associated nausea, dizziness and shortness of breath. Chest pain, likely secondary to anemia. Troponin 0.02. EKG reviewed and shows some T-wave abnormalities that is new. Serial troponin negative, serial enzyme negative. Nuclear test showed ischemia RCA, high septal wall. Cardiology consulted, known to Dr. Dixon cleared for GI procedures. She has coronary angioplasty implant and graft off DAPT to to possible GIB. Atypical CP and he is doubtful it is angina. She was also seen by GI and had multiple procedures including EGD, colonoscopy, barium enema.EGD showed Mild Schatzki ring, small hiatal hernia, residual food in the stomach, probably gastroparesis. Colonoscopy showed Diverticulosis, incomplete due to probable sigmoid stricture. Barium enema, Incomplete barium enema with nonfilling of the ascending colon. Numerous diverticula throughout the evaluated colon especially in the descending and sigmoid segments. No obstructing or constricting lesions identified from the rectum to the proximal transverse colon. No large polypoid defects were identified. Ascending colon and cecum were not evaluated. CT Colonography recommended to exclude obstructing lesion in the ascending colon this patient with a history of blood loss and anemia. CT colonography outpatient needed. She will need to continue PPI and outpatient. And would follow-up with CT: Tomography. All her GI workup is inconclusive. Weigh in on risk and benefits of restarting anticoagulants. Discussed extensively with patient. She will follow-up with Dr. Dixon and GI Dr. Winkler. Her H&H has been stable. Chronic hypertension and chronic hypothyroidism has been treated at the hospital with continued use of her home medications. Patient has met maximal benefits of hospitalization. Clinically stable for discharge. - Time Spent with Patient Total time spent providing and/or coordinating discharge services: Less than 30 minutes - Quality: VTE Deep Vein Thrombosis/Pulmonary Embolism Present on Admission: No Exam Vital signs: Vital Signs 10/19/17 11:09 10/19/17 15:00 10/19/17 15:12 Temperature 98.9 F 98 F Pulse Rate 83 79 80 Respiratory Rate 18 18 Blood Pressure 147/95 H 125/77 Pulse Oximetry 99 98 10/19/17 19:09 10/19/17 20:00 10/19/17 23:20 Temperature 98.6 F Pulse Rate 80 Respiratory Rate 16 16 15 Blood Pressure 123/77 Pulse Oximetry 98 10/19/17 23:26 10/19/17 23:47 10/20/17 08:00 Temperature 98.5 F 97.4 F L Pulse Rate 93 H 97 H 84 Respiratory Rate 16 16 Blood Pressure 124/74 133/81 Pulse Oximetry 96 Intake & Output 10/19/17 10/20/17 10/20/17 18:59 06:59 18:59 Intake Total 2200 / 2200 800 / 800 Balance 2200 / 2200 800 / 800 Intake: IV 1000 / 1000 800 / 800 NS Inj 1,000 ML @ 100 mls/hr IV 1000 / 1000 800 / 800 .CONT .Q10H [facility] Rx#:[id number] Oral 1200 / 1200 Other: # Voids 5 Date of Last Bowel Movement 10/18/17 # Bowel Movements 3 Narrative: GENERAL: This is an obese, well-developed patient, in no apparent distress. SKIN: Warm and dry. HEENT: Normocephalic. Pupils equal round and reactive. Nose without bleeding. Airway patent. NECK: Trachea midline. No JVD. Supple. CARDIOVASCULAR: Regular rate and rhythm without murmurs, gallops, or rubs. RESPIRATORY: Clear to auscultation. Breath sounds equal bilaterally. No wheezes , rales, or rhonchi. GASTROINTESTINAL: Abdomen soft, nondistended, obese. Bowel Sounds hypoactive. Tenderness to palpate right lower quadrant. MUSCULOSKELETAL: Extremities without clubbing, cyanosis, or edema. NEUROLOGICAL: Awake and alert. Oriented to time, place, person. No focal neuro deficit. Moves all extremities. Normal speech. Results Procedures completed during hospitalization: EGD Colonoscopy Barium enema Nuclear stress test Labs on day of discharge: Labs from last 24 hours 10/20/17 10/20/17 06:40 05:31 Hgb 8.6 L Hct 26.9 L POC Glucose 104 - Impressions ITS Impressions Chest X-Ray 10/16/17 20:51 CONCLUSION: The lungs are clear. Myocardial Perfusion Scan Nuc Med 10/17/17 09:15 CONCLUSION: 1. There is ischemia in the RCA territory and high septal wall to a moderate degree. Barium Enema w/ Air Contrast, therapeutic 10/19/17 00:00 CONCLUSION: 1. Incomplete barium enema with nonfilling of the ascending colon. 2. Numerous diverticula throughout the evaluated colon especially in the descending and sigmoid segments. 3. No obstructing or constricting lesions identified from the rectum to the proximal transverse colon. 4. No large polypoid defects were identified. 5. Ascending colon and cecum were not evaluated. 6. CT Colonography recommended to exclude obstructing lesion in the ascending colon this patient with a history of blood loss and anemia. <Cheikh Marcelino - Last Filed: 10/25/17 08:04> Date of admission: 10/17/17 01:23 Primary care physician: PROVIDER NON STAFF DS: Summary - Time Spent with Patient Total time spent providing and/or coordinating discharge services: Results - Impressions ITS Impressions Chest X-Ray 10/16/17 20:51 CONCLUSION: The lungs are clear. Myocardial Perfusion Scan Nuc Med 10/17/17 09:15 CONCLUSION: 1. There is ischemia in the RCA territory and high septal wall to a moderate degree. Barium Enema w/ Air Contrast, therapeutic 10/19/17 00:00 CONCLUSION: 1. Incomplete barium enema with nonfilling of the ascending colon. 2. Numerous diverticula throughout the evaluated colon especially in the descending and sigmoid segments. 3. No obstructing or constricting lesions identified from the rectum to the proximal transverse colon. 4. No large polypoid defects were identified. 5. Ascending colon and cecum were not evaluated. 6. CT Colonography recommended to exclude obstructing lesion in the ascending colon this patient with a history of blood loss and anemia. Discharge Plan - Discharge Order Discharge Orders: Discharge Order (Routine); Ordered 10/20/17 Ordered By: Eileen Lilly - Physicians Team Primary Care Provider: NON STAFF,PROVIDER Attending Provider: Cheikh Marcelino Other Providers: ; Gavin Winkler MD ; Jasper Dixon MD ; [employer], [employer]
== END 2017-10-20 14:43 | disposition home or self-care (01) ==
LOC: NEDA 20:19 → NEPGCP 20:19 → NEPC 20:19 → NEDH 10-17 06:14 → NEDA 10-17 13:35 → NEPGCP 10-17 16:37 → HCIS 10-17 17:08 → NEPGCP 10-17 17:09
PROVIDERS: ADMIT Internal Medicine; ATTEND Internal Medicine
PROC: PANENDO (2017-10-18 13:30)
PROC: COLONOS (2017-10-18 13:30)

== ENCOUNTER 2017-11-18 12:21 | Observation (INO) ==
[2017-11-18] MEDS ORDERED: Acetaminophen 325 MG Tablet PO PRN (14:00)
[2017-11-18] MEDS ORDERED: Enoxaparin Inj 30 MG/0.3 ML Syringe SQ SCH (14:00)
[2017-11-18] MEDS: Morphine Sulfate Inj 2 MG/ML Vial IV.PUSH PRN ×3 (15:50→23:27)
--- NOTE | 2017-11-18 16:13 | P.HP ---
History of Present Illness Primary Care Physician: UNKNOWN Chief Complaint: Chest pain History of Present Illness: 57-year-old female with known history of hypertension, coronary artery disease, hypothyroidism, history of myocardial infarction, history of noncompliance who presented to the emergency department for evaluation of chest pain. Patient has chronic chest pain, previous diagnosis of angina. She states that yesterday her chest pain got worse. He is located on the left sternal border and radiating into the left shoulder and left arm. She states that it was a 10/ 10 on a pain scale. The pain has remained constant and had not gone away. It was associated with nausea, diaphoresis. She denied any vomiting, shortness of breath, dyspnea, lightheadedness, dizziness. Patient has been diagnosed with costochondritis/chest wall pain by her dining room hostess in the past and was told that she needed to get evaluation with pain management physician. Thus far she has not seen a pain management physician for that discomfort. Patient has a rather complex cardiac history with cardiac catheterization done in March where she had a stent placed in the mid LAD. At that time RCA was without any abnormalities. Patient returned back to the hospital and had another cardiac catheterization performed 1 month later which did show that her stent was without any occlusion. Had good coronary arteries. There was a 10% abnormality noted in the RCA. Apparently patient goes to the emergency department, gets admitted multiple times, and goes to her dining room hostess on recurrent basis due to her chest pain/angina. Patient was just admitted in the hospital last month where she underwent a myocardial perfusion study which did indicate moderate reperfusion defect in the RCA distribution. During that visit she was seen by Dr. Dixon her dining room hostess, because on previous catheterization she had no abnormalities in the RCA medical management was maintained. During the hospitalization the patient also had worsening of her anemia. Patient does have microcytic anemia, she underwent multiple endoscopies which did show Schatzki's ring, small hiatal hernia, diverticulitis incomplete colonoscopy due to probable sigmoid stricture. Patient did undergo barium enema which was no visualization of the descending colon. It was recommended that the patient undergo outpatient CT colonoscopy. However, patient has not had follow-up or the outpatient testing performed. Patient does have history of noncompliance with adjusting her own medication for her blood pressure. She does not take medications as they are directed. Patient has not followed lifestyle changes. Patient has not been outpatient follow-up. Patient not had outpatient procedures performed. It was recommended by the ER physician the patient be observed in the hospital for further evaluation and management. - Diagnosis (1) Chest pain Review of Systems All other systems reviewed negative except as stated in HPI Cardiovascular: Reports chest pain PMF - History History Provided By: Patient - Medical History Medical History: Medical History (Last Updated 11/18/17 @ 15:44 by ERUM Galarza) History of myocardial infarction Acid reflux Chest pain Coronary artery disease History of hysterectomy Hypertension Hypothyroid Migraine - Surgical History Surgical History: Surgical History (Last Reviewed 11/18/17 @ 15:55 by ERUM Galarza) H/O heart artery stent History of appendectomy History of thyroid surgery Hx of cholecystectomy - Family History Family History: Family History (Last Reviewed 11/18/17 @ 15:55 by ERUM Galarza) Father Congestive heart failure Mother Family history of hypertension - Tobacco History Second Hand Smoke Exposure: No Smoking Status: Never smoker Tobacco Type: Cigarettes - Alcohol History How Often Do You Have a Drink Containing Alcohol: Never - Substance Use History Substance History: No History of Abuse Medications and Allergies Active Medications: Active Medications Acetaminophen (Tylenol) 650 mg PO Q4H PRN PRN Reason: Temp > 100.4 Morphine Sulfate (Morphine Inj) 2 mg IV.PUSH Q3H PRN PRN Reason: CHEST PAIN Last Admin: 11/18/17 15:50 Dose: 2 mg Allergies Allergy/AdvReac Type Severity Reaction Status Date / Time metronidazole Allergy Severe Anaphylaxis Verified 11/18/17 10:40 penicillin G Allergy Severe Rash Verified 11/18/17 10:40 sulfamethoxazole Allergy Severe Hives Verified 11/18/17 10:40 trimethoprim Allergy Severe Hives Verified 11/18/17 10:40 Home Medications Medication Instructions Recorded Confirmed Type amlodipine 5 mg PO BID 10/16/17 11/18/17 History clonidine HCl 0.3 mg PO Q8HR 10/16/17 11/18/17 History hydralazine 100 mg PO TID 10/16/17 11/18/17 History levothyroxine [Synthroid] 137 mcg PO DAILY 10/16/17 11/18/17 History losartan 100 mg PO DAILY 10/16/17 11/18/17 History metoprolol tartrate 50 mg PO TID 10/16/17 11/18/17 History nortriptyline 75 mg PO HS 10/16/17 11/18/17 History Topamax 50 mg PO TID 11/18/17 11/18/17 History aspirin 81 mg PO DAILY 11/18/17 11/18/17 History lansoprazole [Prevacid] 40 mg PO BID 11/18/17 11/18/17 History potassium 20 mg PO BID 11/18/17 11/18/17 History Exam Vital signs: Vital Signs 11/18/17 15:44 Temperature 97.2 F L Pulse Rate 77 Respiratory Rate 20 Blood Pressure 127/66 Pulse Oximetry 99 Intake & Output 11/17/17 11/18/17 11/18/17 18:59 06:59 18:59 Weight 112.1 kg Other: Weight On Admission 112.1 kg Narrative: GENERAL: Well-developed, well-nourished, in no acute distress. alert and orientated HEENT: Head is normocephalic without any lesions or masses noted. Facial features are symmetric. Eyes: Pupils equal round reactive to light. Extraocular muscles are intact. Conjunctivae were clear. Oropharyngeal: Pharynx without any erythema edema. Tongue is midline without deviation. Buccal mucosa is moist without any masses or lesions NECK: Supple without any masses. Trachea midline no deviation. No JVD, no bruits are appreciated CARDIAC: Regular rhythm, regular rate. S1/S2 are heard. No murmurs gallops or rubs. Reproducible chest wall tenderness noted in the left sternal border LUNGS: Clear to auscultation bilaterally. No wheeze, rhonchi or rales. No use of accessory muscles on inspiration or expiration. ABDOMEN: Soft, nontender. Nondistended. Bowel sounds heard in all 4 quadrants. No organomegaly or masses. Negative rebound, negative guarding EXTREMITIES: No edema, pulses are equal bilaterally. No cyanosis or clubbing NEUROLOGY: Mood and affect appear appropriate. Cranial nerves II through XII grossly intact. Muscle strength 5/5 in upper and lower extremities bilaterally. Deep tendon reflexes are 2+ in upper and lower extremities bilaterally. Caprini VTE Risk Assessment Caprini VTE Risk Assessment: Moderate/High Risk (score >= 2) Caprini Risk Assessment Model: Point Value = 1 Point Value = 2 Point Value = 3 Point Value = 5 Age 41-60 Minor surgery BMI > 25 kg/m2 Swollen legs Varicose veins or History of unexplained or recurrent spontaneous Oral contraceptives or hormone replacement Sepsis (< 1 month) Serious lung disease, including pneumonia (< 1 month) Abnormal pulmonary function Acute myocardial infarction Congestive heart failure (< 1 month) History of inflammatory bowel disease Medical patient at bed rest Age 61-74 Arthroscopic surgery Major open surgery (> 45 min) Laparoscopic surgery (> 45 min) Malignancy Confined to bed (> 72 hours) Immobilizing plaster cast Central venous access Age >= 75 History of VTE Family history of VTE Factor V Leiden Prothrombin [id number] Lupus anticoagulant Anticardiolipin antibodies Elevated serum homocysteine Heparin-induced thrombocytopenia Other congenital or acquired thrombophilia Stroke (< 1 month) Elective arthroplasty Hip, pelvis, or leg fracture Acute spinal cord injury (< 1 month) Prophylaxis Regimen: Total Risk Factor Score Risk Level Prophylaxis Regimen 0-1 Low Early ambulation 2 Moderate Order ONE of the following: *Sequential Compression Device (SCD) *Heparin 5000 units SQ BID 3-4 Higher Order ONE of the following medications: *Heparin 5000 units SQ TID *Enoxaparin/Lovenox 40 mg SQ daily (WT < 150 kg, CrCl > 30 mL/min) *Enoxaparin/Lovenox 30 mg SQ daily (WT < 150 kg, CrCl > 10-29 mL/min) *Enoxaparin/Lovenox 30 mg SQ BID (WT < 150 kg, CrCl > 30 mL/min) AND/OR *Sequential Compression Device (SCD) 5 or more Highest Order ONE of the following medications: *Heparin 5000 units SQ TID (Preferred with Epidurals) *Enoxaparin/Lovenox 40 mg SQ daily (WT < 150 kg, CrCl > 30 mL/min) *Enoxaparin/Lovenox 30 mg SQ daily (WT < 150 kg, CrCl > 10-29 mL/min) *Enoxaparin/Lovenox 30 mg SQ BID (WT < 150 kg, CrCl > 30 mL/min) AND *Sequential Compression Device (SCD) Assessment and Plan - Assessment (1) Chest pain Code(s): R07.9 - Chest pain, unspecified Status: Acute - Plan Chest pain, atypical -Patient has rather complex cardiac history with multiple cardiac catheterizations within the last year, multiple stress test done in the last year. The last one being one month ago. Multiple cardiology evaluations and recommendations. Patient with medication noncompliance and adjusting medications on her own. However, last month she did have a stress test performed which did show an abnormality in the RCA distribution. However previous cardiac catheterizations did not indicate any RCA distribution abnormality. This patient did have a positive cardiac stress test last month, like to try to reduce the risk of the patient undergoing intervention on multiple occasions especially since she has had 2 within the last 8 months. Coronary angiogram would be the most appropriate test at this time to evaluate and determine if there is a RCA distribution abnormality that was indicated by the myocardial perfusion study. If the test is positive then cardiology consultation would be required and catheterization could be performed at the discretion of the dining room hostess. -We will continue ruled patient out for acute coronary event with serial cardiac enzymes and serial EKGs -Continue cardioprotection with aspirin, beta-abisai, amlodipine, start statin , Nitropaste,ARB -Continue monitor telemetry Hypertension, coronary disease, -Continue home medications Hypothyroidism -Obtained TSH 0.185 which is low. Will obtain free T4/free T3. Patient may be medication induced hyperthyroidism, either from non-management or overuse of thyroid medication. This could be contributing to her erratic/uncontrolled blood pressure, persistent chest pain. -Continue replacement therapy DVT prevention -Sequential compression devices Discussed Condition With: Patient, nursing staff, Dr. Kirkpatrick, Dr. Dixon (1) Chest pain Qualifiers: Chest pain type: precordial pain Qualified Code(s): R07.2 - Precordial pain
[2017-11-18] MEDS: Topiramate 25 MG Tablet PO SCH (17:30)
[2017-11-18] MEDS: Metoprolol Tartrate 50 MG Tablet PO SCH (17:31)
[2017-11-18 17:39] LABS: Thyroid Stimulating Hormone 0.185 uIU/mL (0.358-3.740)
[2017-11-18] MEDS: amLODIPine 5 MG Tablet PO SCH (20:30)
[2017-11-18] MEDS: Nortriptyline 25 MG Capsule PO SCH (20:31)
[2017-11-19 00:10] LABS: Free T4 (Free Thyroxine) 0.88 ng/dL (0.76-1.46); Triiodothyronine (T3) Free 1.87 pg/mL (2.18-3.98)
[2017-11-19] MEDS ORDERED: Chlorhexidine Gluconate 2% 1 Pack (2 Cloths) TOPICAL SCH (01:45)
[2017-11-19] MEDS: Morphine Sulfate Inj 2 MG/ML Vial IV.PUSH PRN ×6 (04:11→22:13)
[2017-11-19] MEDS: Levothyroxine 112 MCG Tablet PO SCH (05:17)
[2017-11-19 08:04] LABS: INR 1.1 Ratio; Prothrombin Time 11.4 sec (9.8-11.6)
[2017-11-19 08:10] LABS: Cholesterol 140 mg/dL (120-200); Triglycerides 109 mg/dL (42-150)
[2017-11-19 08:12] LABS: Chol/HDL Ratio 2.69 Ratio; LDL Cholesterol,Calculated 66 mg/dL (0-99)
[2017-11-19] MEDS: Topiramate 25 MG Tablet PO SCH ×3 (08:22→18:30)
[2017-11-19] MEDS: amLODIPine 5 MG Tablet PO SCH ×2 (08:23→21:49)
[2017-11-19] MEDS: Metoprolol Tartrate 50 MG Tablet PO SCH ×3 (08:26→18:30)
[2017-11-19 08:34] LABS: Baso % (Auto) 0.2 % (0.0-2.0); Eos # (Auto) 0.1 th/mm3 (0.0-0.4); Eos % (Auto) 0.7 % (0.0-4.0); Hematocrit 25.6 % (35.0-46.0); Hemoglobin 8.1 gm/dL (11.6-15.3); Lymph # (Auto) 1.3 th/mm3 (1.0-4.8); Lymph % (Auto) 15.6 % (9.0-44.0); Mean Corpuscular HGB Conc 31.5 % (32.0-36.0); Mean Corpuscular Hemoglobin 23.2 pg (27.0-34.0); Mean Corpuscular Volume 73.7 fL (80.0-100.0); Mean Platelet Volume 7.9 fL (7.0-11.0); Mono # (Auto) 0.8 th/mm3 (0.0-0.9); Mono % (Auto) 10.4 % (0.0-8.0); Neut # (Auto) 5.9 th/mm3 (1.8-7.7); Neut % (Auto) 73.1 % (16.0-70.0); Platelet Count 277 th/mm3 (150-450); Red Blood Count 3.47 mil/mm3 (4.00-5.30); Red Cell Distribution Width 17.6 % (11.6-17.2); White Blood Count 8.1 th/mm3 (4.0-11.0)
[2017-11-19 09:21] LABS: Chloride 109 meq/L (98-107); Potassium 3.5 meq/L (3.5-5.1); Sodium 140 meq/L (136-145)
[2017-11-19 09:22] LABS: Alanine Aminotransferase 26 U/L (10-53); Albumin 3.1 g/dL (3.4-5.0); Alkaline Phosphatase 118 U/L (45-117); Anion Gap 9 meq/L (5-15); Aspartate Aminotransferase 18 U/L (15-37); Blood Urea Nitrogen 15 mg/dL (7-18); Calcium 8.3 mg/dL (8.5-10.1); Carbon Dioxide 22.1 meq/L (21.0-32.0); Glomerular Filtration Rate 68 mL/min (>89); Glucose,Random 96 mg/dL (74-106); Total Protein 7.6 g/dL (6.4-8.2)
--- NOTE | 2017-11-19 09:59 | P.PN ---
Subjective Interval history: This is a pleasant 57 y/o Female with Hypertension, CAD, Hypothyroidism, history of [place], non compliance, Patient has chronic chest pain, previous diagnosis of angina. came to ER with Chest pain, has costochondritis cardiac catheterization done in March where she had a stent placed in the mid LAD. At that time RCA was without any abnormalities. Patient returned back to the hospital and had another cardiac catheterization performed 1 month later which did show that her stent was without any occlusion. Had good coronary arteries. Patient was just admitted in the hospital last month where she underwent a myocardial perfusion study which did indicate moderate reperfusion defect in the RCA distribution. 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 During the hospitalization the patient also had worsening of her anemia. Patient does have microcytic anemia, she underwent multiple endoscopies which did show Schatzki's ring, small hiatal hernia, diverticulitis incomplete colonoscopy due to probable sigmoid stricture. Patient did undergo barium enema which was no visualization of the descending colon. It was recommended that the patient undergo outpatient CT colonoscopy. However, patient has not had follow-up or the outpatient testing performed. Patient does have history of noncompliance with adjusting her own medication for her blood pressure. She does not take medications as they are directed. Patient has not followed lifestyle changes. Patient has not been outpatient follow-up. Patient not had outpatient procedures performed. It was recommended by the ER physician the patient be observed in the hospital for further evaluation and management. tobacco dependence. 11/19: Stable in her bedroom, chest pain free, no nausea, vomit or diarrhea, Cardiac Enzyme within normal limits she has an order from yesterday awaiting fo CTA of Coronary arteries. will follow after test performed for discharge. Physical Exam Vital signs: Vital Signs 11/18/17 15:44 11/18/17 16:00 11/18/17 16:37 Temperature 97.2 F L Pulse Rate 77 Respiratory Rate 20 18 18 Blood Pressure 127/66 Pulse Oximetry 99 11/18/17 19:02 11/18/17 20:00 11/18/17 20:07 Temperature 97.7 F Pulse Rate 78 73 Respiratory Rate 18 16 Blood Pressure 121/64 Pulse Oximetry 99 11/18/17 20:23 11/18/17 23:29 11/19/17 00:00 Temperature Pulse Rate 77 Respiratory Rate 18 Blood Pressure Pulse Oximetry 97 11/19/17 00:52 11/19/17 04:00 11/19/17 04:15 Temperature 97.8 F Pulse Rate 74 75 Respiratory Rate 20 18 Blood Pressure 132/74 Pulse Oximetry 96 11/19/17 04:39 11/19/17 08:00 Temperature 97.6 F 98.5 F Pulse Rate 78 82 Respiratory Rate 18 17 Blood Pressure 137/62 105/56 L Pulse Oximetry 96 95 Intake & Output 11/18/17 11/19/17 11/19/17 18:59 06:59 18:59 Intake Total 240 / 240 Balance 240 / 240 Weight 112.9 kg 110.8 kg Intake: Oral 240 / 240 Other: # Voids 1 Date of Last Bowel Movement 11/18/17 Weight On Admission 112.1 kg Narrative: GENERAL: No acute distress. alert and orientated HEENT: Normocephalic, atraumatic. wet mucous membranes. NECK: Supple without any masses. Trachea midline no deviation. No JVD, no bruits are appreciated CARDIAC: Regular rhythm, regular rate. S1/S2 are heard. No murmurs gallops or rubs. Reproducible chest wall tenderness noted in the left sternal border LUNGS: Clear to auscultation bilaterally. No wheeze, rhonchi or rales. ABDOMEN: Soft, nontender. Nondistended. EXTREMITIES: No edema, pulses are equal bilaterally. No cyanosis or clubbing NEUROLOGY: No focal deficits. Results - Labs CBC & Chem 7: 11/19/17 06:10 11/19/17 06:10 Laboratory Results - last 24 hr 11/18/17 11/18/17 11/18/17 16:58 16:58 20:08 WBC RBC Hgb Hct MCV MCH MCHC RDW Plt Count MPV Neut % (Auto) Lymph % (Auto) Davie % (Auto) Eos % (Auto) Baso % (Auto) Neut # (Auto) Lymph # (Auto) Davie # (Auto) Eos # (Auto) Baso # (Auto) WBC Differential Differential Comment PT INR Sodium Potassium Chloride Carbon Dioxide Anion Gap BUN Creatinine Estimated GFR Random Glucose Calcium Total Bilirubin AST ALT Alkaline Phosphatase Troponin I Less than 0.02 L Cancelled Less than 0.02 L Total Protein Albumin Triglycerides Cholesterol LDL Cholesterol, Calc HDL Cholesterol Cholesterol/HDL Ratio TSH 0.185 L Free T4 0.88 Free T3 1.87 L 11/19/17 11/19/17 11/19/17 06:10 06:10 06:16 WBC 8.1 RBC 3.47 L Hgb 8.1 L Hct 25.6 L MCV 73.7 L MCH 23.2 L MCHC 31.5 L RDW 17.6 H Plt Count 277 MPV 7.9 Neut % (Auto) 73.1 H Lymph % (Auto) 15.6 Davie % (Auto) 10.4 H Eos % (Auto) 0.7 Baso % (Auto) 0.2 Neut # (Auto) 5.9 Lymph # (Auto) 1.3 Davie # (Auto) 0.8 Eos # (Auto) 0.1 Baso # (Auto) 0.0 WBC Differential . Differential Comment Auto diff final PT 11.4 INR 1.1 Sodium 140 Potassium 3.5 Chloride 109 H Carbon Dioxide 22.1 Anion Gap 9 BUN 15 Creatinine 1.02 H Estimated GFR 68 L Random Glucose 96 Calcium 8.3 L Total Bilirubin 0.3 AST 18 ALT 26 Alkaline Phosphatase 118 H Troponin I Total Protein 7.6 Albumin 3.1 L Triglycerides 109 Cholesterol 140 LDL Cholesterol, Calc 66 HDL Cholesterol 52.0 Cholesterol/HDL Ratio 2.69 TSH Free T4 Free T3 Assessment and Plan - Assessment (1) Chest pain Code(s): R07.9 - Chest pain, unspecified Status: Acute - Plan Chest pain, atypical -Patient has rather complex cardiac history with multiple cardiac catheterizations within the last year, multiple stress test done in the last year. medication noncompliance and adjusting medications on her own. last month she did have a stress test performed which did show an abnormality in the RCA distribution. However previous cardiac catheterizations did not indicate any RCA distribution abnormality. was recommended Coronary angiography that will be done tomorrow, Cardiac enzymes today negative. If the test is positive then cardiology consultation would be required. Hypertension controlled. Hypothyroidism -Obtained TSH 0.185 which is low. Will obtain free T4/free T3. T4 within normal limits, decreased Levothyroxine to 112 mcg daily. DVT prevention -Sequential compression devices Code Status: Full code. Discussed Condition With: Patient and nurse. Discharge Planning: Expected for tomorrow after CT angiography. (1) Chest pain Qualifiers: Chest pain type: precordial pain Qualified Code(s): R07.2 - Precordial pain
--- NOTE | 2017-11-19 15:39 | ECG ---
Date Performed: 11/18/2017 Time Performed: 22:31:31 PTAGE: 57 years EKG: Sinus rhythm WITH FIRST DEGREE AV BLOCK MINOR NONSPECIFIC T-WAVE CHANGE Since previous tracing, no significant ch joe noted ABNORMAL ECG PREVIOUS TRACING : 11/18/2017 20.02 DOCTOR: Trey Bradley Interpretating Date/Time 11/19/2017 15:38:58
--- NOTE | 2017-11-19 15:39 | ECG ---
Date Performed: 11/18/2017 Time Performed: 16:54:31 PTAGE: 57 years EKG: Sinus rhythm WITH FIRST DEGREE AV BLOCK NONSPECIFIC ST-T CHANGES Since previous tracing, no significant change no albino ABNORMAL ECG PREVIOUS TRACING : 10/17/2017 09.21 DOCTOR: Trey Bradley Interpretating Date/Time 11/19/2017 15:37:49
--- NOTE | 2017-11-19 15:39 | ECG ---
Date Performed: 11/18/2017 Time Performed: 20:02:23 PTAGE: 57 years EKG: Sinus rhythm WITH FIRST DEGREE AV BLOCK MINOR NONSPECIFIC T-WAVE CHANGES Compared to previous tracing, T-wave amarilis nges anteriorly have improved. ABNORMAL ECG PREVIOUS TRACING : 11/18/2017 16.54 DOCTOR: Trey Bradley Interpretating Date/Time 11/19/2017 15:38:34
[2017-11-19] MEDS: Nortriptyline 25 MG Capsule PO SCH (21:50)
[2017-11-20] MEDS: Morphine Sulfate Inj 2 MG/ML Vial IV.PUSH PRN ×2 (03:00→06:47)
[2017-11-20] MEDS: Levothyroxine 112 MCG Tablet PO SCH (06:26)
[2017-11-20] MEDS: Topiramate 25 MG Tablet PO SCH ×3 (08:33→19:03)
[2017-11-20] MEDS: Metoprolol Tartrate 50 MG Tablet PO SCH ×3 (08:34→19:03)
[2017-11-20] MEDS: amLODIPine 5 MG Tablet PO SCH ×2 (08:34→21:47)
--- NOTE | 2017-11-20 08:46 | P.PN ---
Subjective Interval history: This is a pleasant 57 y/o Female with Hypertension, CAD, Hypothyroidism, history of [place], non compliance, Patient has chronic chest pain, previous diagnosis of angina. came to ER with Chest pain, has costochondritis cardiac catheterization done in March where she had a stent placed in the mid LAD. At that time RCA was without any abnormalities. Patient returned back to the hospital and had another cardiac catheterization performed 1 month later which did show that her stent was without any occlusion. Had good coronary arteries. Patient was just admitted in the hospital last month where she underwent a myocardial perfusion study which did indicate moderate reperfusion defect in the RCA distribution. During that visit she was seen by Dr. 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 During the hospitalization the patient also had worsening of her anemia. Patient does have microcytic anemia, she underwent multiple endoscopies which did show Schatzki's ring, small hiatal hernia, diverticulitis incomplete colonoscopy due to probable sigmoid stricture. Patient did undergo barium enema which was no visualization of the descending colon. It was recommended that the patient undergo outpatient CT colonoscopy. However, patient has not had follow-up or the outpatient testing performed. Patient does have history of noncompliance with adjusting her own medication for her blood pressure. She does not take medications as they are directed. Patient has not followed lifestyle changes. Patient has not been outpatient follow-up. Patient not had outpatient procedures performed. It was recommended by the ER physician the patient be observed in the hospital for further evaluation and management. tobacco dependence. 11/19: Stable in her bedroom, chest pain free, no nausea, vomit or diarrhea, Cardiac Enzyme within normal limits she has an order from yesterday awaiting fo CTA of Coronary arteries. will follow after test performed for discharge. 11/20: Seen in her bedroom, discussed about the test recommended by ERUM at [facility] she is symptomatic but the pain is reproducible in nature, will remove the test and follow by substance abuse specialist as outpatient, discussed about Lifestyle modifications she will need exercise, good healthy diet and follow ups with her physicians when indicated. Physical Exam Vital signs: Vital Signs 11/19/17 12:00 11/19/17 15:23 11/19/17 16:00 Temperature 98.1 F 97.8 F Pulse Rate 85 80 Respiratory Rate 17 17 Blood Pressure 121/66 110/67 Pulse Oximetry 93 L 97 97 11/19/17 20:26 11/19/17 20:48 11/19/17 22:15 Temperature 99.5 F Pulse Rate 95 H Respiratory Rate 20 18 Blood Pressure 141/91 H Pulse Oximetry 98 100 11/20/17 00:38 11/20/17 03:00 11/20/17 04:54 Temperature 97.9 F 98.1 F Pulse Rate 88 77 Respiratory Rate 20 18 20 Blood Pressure 137/79 128/64 Pulse Oximetry 98 96 11/20/17 07:00 Temperature Pulse Rate Respiratory Rate 16 Blood Pressure Pulse Oximetry Intake & Output 11/19/17 11/20/17 11/20/17 18:59 06:59 18:59 Weight 109 kg Other: # Voids 4 3 # Bowel Movements 1 1 Narrative: GENERAL: No acute distress. alert and orientated HEENT: Normocephalic, atraumatic. wet mucous membranes. NECK: Supple without any masses. Trachea midline no deviation. No JVD, no bruits are appreciated CARDIAC: Regular rhythm, regular rate. S1/S2 are heard. No murmurs gallops or rubs. Reproducible chest wall tenderness noted in the left sternal border LUNGS: Clear to auscultation bilaterally. No wheeze, rhonchi or rales. ABDOMEN: Soft, nontender. Nondistended. EXTREMITIES: No edema, pulses are equal bilaterally. No cyanosis or clubbing NEUROLOGY: No focal deficits. Results - Labs CBC & Chem 7: 11/19/17 06:10 11/19/17 06:10 Laboratory Results - last 24 hr 11/19/17 06:10 Sodium 140 Potassium 3.5 Chloride 109 H Carbon Dioxide 22.1 Anion Gap 9 BUN 15 Creatinine 1.02 H Estimated GFR 68 L Random Glucose 96 Calcium 8.3 L Total Bilirubin 0.3 AST 18 ALT 26 Alkaline Phosphatase 118 H Total Protein 7.6 Albumin 3.1 L Assessment and Plan - Assessment (1) Chest pain Code(s): R07.9 - Chest pain, unspecified Status: Acute - Plan Chest pain, atypical -Patient has rather complex cardiac history with multiple cardiac catheterizations within the last year, multiple stress test done in the last year. medication noncompliance and adjusting medications on her own. last month she did have a stress test performed which did show an abnormality in the RCA distribution. However previous cardiac catheterizations did not indicate any RCA distribution abnormality. was recommended Coronary angiography that will be done tomorrow, Cardiac enzymes today negative. If the test is positive then cardiology consultation would be required. no need for CTA she will follow with PCP and Cardiology as outpatient. Hypertension controlled. Hypothyroidism -Obtained TSH 0.185 which is low. Will obtain free T4/free T3. T4 within normal limits, decreased Levothyroxine to 112 mcg daily. DVT prevention -Sequential compression devices Code Status: Full code Discussed Condition With: Patient and nurse. Discharge Planning: Discharge home now. (1) Chest pain Qualifiers: Chest pain type: precordial pain Qualified Code(s): R07.2 - Precordial pain
--- NOTE | 2017-11-20 10:09 | P.DS ---
Date of admission: 11/18/17 15:28 Primary care physician: UNKNOWN Attending physician on discharge: Ancelmo Ramos Anticipated date of discharge: 11/20/17 Brief History from admission: 57-year-old female with known history of hypertension, coronary artery disease, hypothyroidism, history of myocardial infarction, history of noncompliance who presented to the emergency department for evaluation of chest pain. Patient has chronic chest pain, previous diagnosis of angina. She states that yesterday her chest pain got worse. He is located on the left sternal border and radiating into the left shoulder and left arm. She states that it was a 10/ 10 on a pain scale. The pain has remained constant and had not gone away. It was associated with nausea, diaphoresis. She denied any vomiting, shortness of breath, dyspnea, lightheadedness, dizziness. Patient has been diagnosed with costochondritis/chest wall pain by her drugless physician in the past and was told that she needed to get evaluation with pain management physician. Thus far she has not seen a pain management physician for that discomfort. Patient has a rather complex cardiac history with cardiac catheterization done in March where she had a stent placed in the mid LAD. At that time RCA was without any abnormalities. Patient returned back to the hospital and had another cardiac catheterization performed 1 month later which did show that her stent was without any occlusion. Had good coronary arteries. There was a 10% abnormality noted in the RCA. Apparently patient goes to the emergency department, gets admitted multiple times, and goes to her drugless physician on recurrent basis due to her chest pain/angina. Patient was just admitted in the hospital last month where she underwent a myocardial perfusion study which did indicate moderate reperfusion defect in the RCA distribution. During that visit she was seen by Dr. Dixon her drugless physician, because on previous catheterization she had no abnormalities in the RCA medical management was maintained. During the hospitalization the patient also had worsening of her anemia. Patient does have microcytic anemia, she underwent multiple endoscopies which did show Schatzki's ring, small hiatal hernia, diverticulitis incomplete colonoscopy due to probable sigmoid stricture. Patient did undergo barium enema which was no visualization of the descending colon. It was recommended that the patient undergo outpatient CT colonoscopy. However, patient has not had follow-up or the outpatient testing performed. Patient does have history of noncompliance with adjusting her own medication for her blood pressure. She does not take medications as they are directed. Patient has not followed lifestyle changes. Patient has not been outpatient follow-up. Patient not had outpatient procedures performed. It was recommended by the ER physician the patient be observed in the hospital for further evaluation and management. DS: Diagnosis - Discharge Diagnosis (1) Chest pain Status: Acute DS: Summary Hospital Course: This is a pleasant 57 y/o Female with Hypertension, CAD, Hypothyroidism, history of AR, non compliance, Patient has chronic chest pain, previous diagnosis of angina. came to ER with Chest pain, has costochondritis cardiac catheterization done in March where she had a stent placed in the mid LAD. At that time RCA was without any abnormalities. Patient returned back to the hospital and had another cardiac catheterization performed 1 month later which did show that her stent was without any occlusion. Had good coronary arteries. Patient was just admitted in the hospital last month where she underwent a myocardial perfusion study which did indicate moderate reperfusion defect in the RCA distribution. During that visit she was seen by Dr. Dixon her drugless physician, because on previous catheterization she had no abnormalities in the RCA medical management was maintained. During the hospitalization the patient also had worsening of her anemia. Patient does have microcytic anemia, she underwent multiple endoscopies which did show Schatzki's ring, small hiatal hernia, diverticulitis incomplete colonoscopy due to probable sigmoid stricture. Patient did undergo barium enema which was no visualization of the descending colon. It was recommended that the patient undergo outpatient CT colonoscopy. However, patient has not had follow-up or the outpatient testing performed. Patient does have history of noncompliance with adjusting her own medication for her blood pressure. She does not take medications as they are directed. Patient has not followed lifestyle changes. Patient has not been outpatient follow-up. Patient not had outpatient procedures performed. It was recommended by the ER physician the patient be observed in the hospital for further evaluation and management. tobacco dependence. 11/19: Stable in her bedroom, chest pain free, no nausea, vomit or diarrhea, Cardiac Enzyme within normal limits she has an order from yesterday awaiting fo CTA of Coronary arteries. will follow after test performed for discharge. 11/20: Seen in her bedroom, discussed about the test recommended by [facility] at [facility] she is symptomatic but the pain is reproducible in nature, will remove the test and follow by practice specialist as outpatient, discussed about Lifestyle modifications she will need exercise, good healthy diet and follow ups with her physicians when indicated. Assessment and Plan - Assessment (1) Chest pain Code(s): R07.9 - Chest pain, unspecified Status: Acute - Plan Chest pain, atypical -Patient has rather complex cardiac history with multiple cardiac catheterizations within the last year, multiple stress test done in the last year. medication noncompliance and adjusting medications on her own. last month she did have a stress test performed which did show an abnormality in the RCA distribution. However previous cardiac catheterizations did not indicate any RCA distribution abnormality. was recommended Coronary angiography that will be done tomorrow, Cardiac enzymes today negative. If the test is positive then cardiology consultation would be required. no need for CTA she will follow with PCP and Cardiology as outpatient. Hypertension controlled. Hypothyroidism -Obtained TSH 0.185 which is low. Will obtain free T4/free T3. T4 within normal limits, decreased Levothyroxine to 112 mcg daily. DVT prevention -Sequential compression devices Code Status: Full code Discussed Condition With: Patient and nurse. Discharge Planning: Discharge home now. - Time Spent with Patient Total time spent providing and/or coordinating discharge services: Less than 30 minutes - Quality: VTE Deep Vein Thrombosis/Pulmonary Embolism Present on Admission: No Exam Vital signs: Vital Signs 11/19/17 12:00 11/19/17 15:23 11/19/17 16:00 Temperature 98.1 F 97.8 F Pulse Rate 85 80 Respiratory Rate 17 17 Blood Pressure 121/66 110/67 Pulse Oximetry 93 L 97 97 11/19/17 20:26 11/19/17 20:48 11/19/17 22:15 Temperature 99.5 F Pulse Rate 95 H Respiratory Rate 20 18 Blood Pressure 141/91 H Pulse Oximetry 98 100 11/20/17 00:38 11/20/17 03:00 11/20/17 04:54 Temperature 97.9 F 98.1 F Pulse Rate 88 77 Respiratory Rate 20 18 20 Blood Pressure 137/79 128/64 Pulse Oximetry 98 96 11/20/17 07:00 11/20/17 08:00 Temperature 97.7 F Pulse Rate 83 Respiratory Rate 16 18 Blood Pressure 120/66 Pulse Oximetry 96 Intake & Output 11/19/17 11/20/17 11/20/17 18:59 06:59 18:59 Weight 109 kg Other: # Voids 4 3 # Bowel Movements 1 1 Narrative: GENERAL: No acute distress. alert and orientated HEENT: Normocephalic, atraumatic. wet mucous membranes. NECK: Supple without any masses. Trachea midline no deviation. No JVD, no bruits are appreciated CARDIAC: Regular rhythm, regular rate. S1/S2 are heard. No murmurs gallops or rubs. Reproducible chest wall tenderness noted in the left sternal border LUNGS: Clear to auscultation bilaterally. No wheeze, rhonchi or rales. ABDOMEN: Soft, nontender. Nondistended. EXTREMITIES: No edema, pulses are equal bilaterally. No cyanosis or clubbing NEUROLOGY: No focal deficits. Results Procedures completed during hospitalization: None Discharge Plan - Discharge Disposition Patient Disposition: Discharge Home - Discharge Condition Condition: Good - Discharge Order Discharge Orders: Discharge Order (Routine); Ordered 11/20/17 Ordered By: Ancelmo Ramos - Discharge Details Anticipated Discharge Date: 11/20/17 Discharge Comment: follow up with PCP and with practice specialist as outpatient. - Physicians Team Primary Care Provider: UNKNOWN, Attending Provider: Ancelmo Ramos Other Providers: [facility],Insurance - Rxs /Orders / Referrals /Forms Prescriptions: New levothyroxine [Synthroid] 112 mcg Tablet 112 mcg PO DAILY@0600 30 Days Qty: 30 RF: 0 Continue amlodipine 5 mg Tablet 5 mg PO BID aspirin 81 mg Tablet,Chewable 81 mg PO DAILY lansoprazole [Prevacid] 30 mg Capsule,Delayed Release(Dr/Ec) 40 mg PO BID losartan 100 mg Tablet 100 mg PO DAILY metoprolol tartrate 50 mg Tablet 50 mg PO TID nortriptyline 75 mg Capsule 75 mg PO HS Topamax 50 mg PO TID Discontinued clonidine HCl 0.3 mg Tablet 0.3 mg PO Q8HR hydralazine 100 mg Tablet 100 mg PO TID levothyroxine [Synthroid] 137 mcg Tablet 137 mcg PO DAILY potassium 20 mg PO BID Referrals: UNKNOWN, [Primary Care Provider] - See Instructions
[2017-11-20] MEDS ORDERED: Metoprolol Inj 5 MG/5 ML Vial ONE ×4 (14:53→18:26)
[2017-11-20] MEDS ORDERED: Nitroglycerin SL (Override) 0.4 MG Tab SL ONE (17:50)
[2017-11-20] MEDS ORDERED: Metoprolol Inj 5 MG/5 ML Vial IV.PUSH PRN (19:40)
[2017-11-20] MEDS ORDERED: Metoprolol Tartrate 50 MG Tablet PO SCH (19:45)
--- NOTE | 2017-11-20 20:54 | CT ---
EXAM DATE: 11/20/2017 8:33 PM EDT AGE/SEX: 57 years / Female INDICATIONS: Left sided chest pain. CLINICAL DATA: This is the patient's initial encounter. Patient reports that signs and symptoms have been present for 1 day and indicates a pain score of 6/10. MEDICAL/SURGICAL HISTORY: Hypothyroidism. Cardiovascular disease. Coronary artery stent. Cholecys tectomy. Appendectomy. RADIATION DOSE: 42.96 CTDI (mGy) ; Patient body habitus COMPARISON: No prior exams available for comparison. STUDY QUALITY: TECHNIQUE: The patient was given beta-blockers prior to the procedure. Resting heart rate prior to t he procedure was approximately bpm. Multiple contiguous axial images were obtained through the heart during bolus infusion of 115 ml Omnipaque 350 (iohexol) nonionic water-soluble contrast as a single exam dose. Images were acquired during peak arterial contrast. Images were reconstructed using a ret rospective gating algorithm including single sector and multi-sector algorithms at multiple phases of the cardiac cycle. Images were interpreted using a combination of 2D and 3D visualization modes incl uding curved planar reformation, thin slab maximum intensity projection and volume rendering in order to evaluate cardiac structure, morphology and function. Using automated exposure control and adjustm ent of the mA and/or kV according to patient size, radiation dose was kept as low as reasonably achie vable to obtain optimal diagnostic quality images. DICOM format image data is available electronical ly for review and comparison. FINDINGS: Noncontrast imaging demonstrates a calcium score of 0. VESSEL ANALYSIS: DOMINANCE: The coronary system is right dominant. LEFT MAIN: Normal size vessel without calcification or stenosis. LAD: Normal size vessel without calcification or stenosis. Coronary stent in the mid LAD with intact flow distal to the stent. CIRCUMFLEX: Normal size vessel without stenosis. RCA: Normal size vessel without calcification or stenosis CONCLUSION: 1. LAD stent appears to be functioning with flow seen distal to the stent. 2. No additional significant stenotic lesions seen. Electronically signed by: Pepe Coughlin MD 11/20/2017 8:52 PM EDT
[2017-11-20] MEDS: Nortriptyline 25 MG Capsule PO SCH (21:47)
[2017-11-21] MEDS: Levothyroxine 112 MCG Tablet PO SCH (06:06)
[2017-11-21] MEDS: Topiramate 25 MG Tablet PO SCH (08:35)
[2017-11-21] MEDS: amLODIPine 5 MG Tablet PO SCH (08:46)
[2017-11-21] MEDS: Metoprolol Tartrate 50 MG Tablet PO SCH (08:46)
== END 2017-11-21 11:03 | disposition home or self-care (01) ==
LOC: NEDDLT 12:21 → INTOOBSV 15:28 → PH3 15:28 → N07 23:10
PROVIDERS: ADMIT Internal Medicine; ATTEND Internal Medicine